=== PATIENT | male | born 2000 | race African-American/Black ===

== ENCOUNTER 2024-08-01 21:01 | Emergency (ER) | payer OTHER, SELFPAY ==
--- NOTE | ~2024-08-01 | XR_ITS ---
EXAMINATION: XR CHEST CLINICAL INFORMATION: Chest pain COMPARISON: None available. TECHNIQUE: 2 views of the chest were obtained. FINDINGS: The lungs are clear with no focal consolidation. No evidence of pneumothorax, pulmonary edema, or pleural effusions. The cardiomediastinal silhouette is unremarkable. No acute osseous findings. XR/XR chest 2V IMPRESSION: No acute cardiopulmonary findings. Electronically signed by: Sourav Bales MD 08/02/2024 04:40 AM EDT
--- NOTE | ~2024-08-01 | CT_ITS ---
EXAMINATION: CT ABDOMEN AND PELVIS WITH CONTRAST CLINICAL INFORMATION: Generalized abdominal pain and tenderness COMPARISON: None available. TECHNIQUE: Multidetector volumetric images were obtained from the superior aspect of the liver through the pubic symphysis following administration 60 mL of Omnipaque 350 intravenous contrast. Sagittal and coronal reformatted images were obtained on the technologist's workstation. Oral contrast: No This CT examination was performed using dose optimization techniques as appropriate, variously including the following: *Automated exposure control *Adjustment of mA and/or kV according to patient size (this includes techniques or standardized protocols for targeted exams where dose is matched to indication/reason for exam; i.e. extremities or head) *Use of iterative reconstruction technique DLP: 790 mGy-cm FINDINGS: LUNG BASES: The visualized lung bases are unremarkable. LIVER, GALLBLADDER, AND BILIARY TREE: The liver is normal in size, shape, and attenuation. No focal hepatic lesion or biliary ductal dilatation is present. The gallbladder is unremarkable with no evidence of radiopaque gallstones, gallbladder wall thickening, or obvious pericholecystic inflammatory changes. PANCREAS: Unremarkable. SPLEEN: Unremarkable. ADRENAL GLANDS: Unremarkable. KIDNEYS AND URETERS: Bilateral nephrograms are symmetric. No hydronephrosis or obstructing calculus identified. BLADDER: Unremarkable. GASTROINTESTINAL TRACT: No convincing evidence for bowel obstruction. Suboptimal assessment for wall thickening in some segments of the colon due to luminal collapse. The appendix is unremarkable. No free fluid or free air is seen. ABDOMINAL WALL: No significant hernia is appreciated. LYMPH NODES: Several nonspecific bilateral external iliac and inguinal lymph nodes approaching the upper limits of normal in size. VASCULAR: Unremarkable. PELVIC VISCERA: Unremarkable. OSSEOUS STRUCTURES: Unremarkable. CT/CT abdomen pelvis w IV con IMPRESSION: No definite acute findings identified in the abdomen/pelvis. Of note, there is limited assessment for wall thickening in some segments of the colon due to luminal collapse. Electronically signed by: Sourav Bales MD 08/02/2024 06:20 AM EDT
[2024-08-01 21:10] VITALS: BP 150/80; BP 150/84; PULSE 89; PULSE 90; RESP 14; TEMP 37.1; O2SAT 100; O2SAT 98; BMI 32.6
[2024-08-01 22:00] VITALS: BP 143/81; PULSE 85; RESP 13; TEMP 36.8; O2SAT 97
--- NOTE | 2024-08-01 22:13 | MHC.EDTECH ---
This tech answered pt call naila pt asked for urinal, refused to put socks in- my toes will lock out and I will be screaming of pain .
[2024-08-01 22:22] LABS: Alanine Aminotransferase 36 U/L (0-40); Alkaline Phosphatase 139 U/L (39-117); Anion Gap 14 (12-20); Aspartate Amino Transferase 32 U/L (5-37); Bilirubin Total 0.3 mg/dL (0.0-1.0); Blood Urea Nitrogen 5 mg/dL (9-16); Calcium 9.7 mg/dL (8.4-10.2); Carbon Dioxide 25 mmol/L (22-29); Chloride 99 mmol/L (96-108); Creatinine Clr Calc Pharmacy 153.3; Estimated Glomerular Filt Rate > 60; Glucose Random 104 mg/dL (60-115); Potassium 3.2 mmol/L (3.3-5.1); Sodium 135 mmol/L (135-145); Total Protein 7.9 g/dL (6.5-8.0)
[2024-08-01 22:25] LABS: Baso%MD 0.3 %; Eos%MD 0.3 %; Hematocrit 36.4 % (42.0-52.0); Hemoglobin 12.7 g/dl (14.0-18.0); IG%MD 0.6 %; Lymph%MD 14.8 %; Mean Corpuscular HGB Conc 34.9 g/dl (31.0-36.0); Mean Corpuscular Hemoglobin 31.1 pg (27.0-33.0); Mean Corpuscular Volume 89.2 fL (80.0-98.0); Mean Platelet Volume 10.1 fL (9.4-12.4); Mono%MD 7.8 %; Neut%MD 76.2 %; Platelet Count 369 X10*3/uL (160-400); Red Blood Count 4.08 X10*6/uL (4.60-5.80); White Blood Count 11.5 X10*3/uL (4.8-10.8)
[2024-08-01 22:27] LABS: B Type Natriuretic Peptide < 10 pg/mL (<100)
[2024-08-01 22:46] LABS: Influenza A PCR NEGATIVE (Negative); Influenza B PCR NEGATIVE (Negative); Resp Syncy Virus RNA Qual PCR NEGATIVE (Negative); SARS COV2 PCR INHOUSE NEGATIVE (Negative)
[2024-08-01 23:13] LABS: Band Neutrophils Percent 5 % (3-5); Lymphocytes Absolute Manual 1.8 X10*3/uL (1.2-4.9); Lymphocytes Percent Manual 16 % (20-40); Monocytes Absolute Manual 0.9 X10*3/uL (0.1-1.2); Monocytes Percent Manual 8 % (2-11); Neutrophils Absolute Manual 8.7 X10*3/uL (2.0-8.3); Neutrophils Percent Manual 71 % (45-73); RBC Morphology NORMAL
[2024-08-01 23:14] LABS: Platelet Estimate NORMAL (NORMAL); Platelet Morphology Comment NORM
[2024-08-02 00:16] VITALS: BP 156/88; PULSE 84; RESP 22; TEMP 36.7; O2SAT 97
--- NOTE | 2024-08-02 01:30 | PC.NURSE ---
resting quietly on stretcher, with eyes closed, resp with ease, no s/s of acute distress, waiting on ED provider
--- NOTE | 2024-08-02 03:02 | ED_ITS ---
HPI - General Adult General Chief complaint: Extremity Injury, Lower Stated complaint: MALAISE,FEVER,PEDAL EDEMA X 1DAY Time Seen by Provider: 08/02/24 03:01 History of Present Illness ED Provider: Rayna LANDAVERDE narrative: The patient is a 23-year-old male who says that he has been drinking very heavily for the last several weeks to months. He also has been homeless for the last 2 months. Says he is originally from [place]. He has been feeling unwell for over a week. He has had a sense of general malaise, cough, he has had swelling in his lower legs and he has cramping in his flanks, mostly on the right side. He says that he has a history of kidney stones. He has itchy lesions on both legs. He believes he got into poison trisha. He says he feels exhausted and depressed although he is not frankly suicidal. Related Data Allergies Allergy/AdvReac Type Severity Reaction Status Date / Time naproxen [From Naprosyn] Allergy Mild Vomiting Verified 08/01/24 21:16 Review of Systems 2 Review of Systems: Yes all other systems are reviewed and are negative [facility] Social History Social History Smoked in Last 30 Days: Yes Use of substances other than those prescribed or required for medical reasons: Yes Substance Use Type: Marijuana Advance Directives: No Advance Directives Information Provided: No Do you have a plan to hurt others: No Plan Physical Exam ED Vital Signs: Vital Signs - 24 hr 08/01/24 21:10 08/01/24 22:00 08/02/24 00:16 Temperature 98.7 F 98.3 F 98.1 F Pulse Rate 89 85 84 Respiratory Rate 14 13 22 H Blood Pressure 150/84 H 143/81 H 156/88 H Pulse Oximetry 100 97 97 Oxygen Delivery Method Room Air Room Air Room Air 08/02/24 04:35 08/02/24 06:30 Temperature 98.0 F 98.4 F Pulse Rate 66 90 Respiratory Rate 16 16 Blood Pressure 133/73 138/80 Pulse Oximetry 98 95 Oxygen Delivery Method Room Air Room Air BMI result Body Mass Index 32.6 Const Other: The patient has a large 23-year-old who was awake and alert although he looks exhausted and worn out. HENMT Other: The face is symmetrical. Mucous membranes are moist. Eyes Other: Pupils are round equal, conjunctivae are clear, extraocular movements intact Neck Other: Moving his neck easily Resp Effort & Inspection: normal respiratory effort Auscultation: clear to auscultation bilaterally Cardio Rate: regular rate Rhythm: regular rhythm Heart sounds: S1 normal heart sound present and S2 normal heart sound present GI Other: The patient has some mild generalized abdominal tenderness without focal rebound or guarding. General: Yes no CVA tenderness Back/Spine/Pelvis Back: no CVA tenderness Skin Other: The patient has several skin lesions on the lower legs that I think are consistent with poison trisha. Neuro Other: The patient is awake and alert. He seemed exhausted. No cranial nerve deficit. He seemed able to move his extremities symmetrically and appropriately Extrem Other: The patient has patches of erythema with vesicles on his lower legs which seem consistent with poison trisha. He may have some mild edema to the lower legs and feet. Medications Administered Generic Name Dose Route Start Last Admin Trade Name Freq PRN Reason Stop Dose Admin Phenobarbital Sodium 234 mg 08/02/24 07:15 08/02/24 07:14 Phenobarbital Sodium 130 Mg/Ml Vial Im Q3hx2 IM 08/02/24 10:16 234 mg Q3H ABDULAZIZ Administration Discontinued Medications Generic Name Dose Route Start Last Admin Trade Name Freq PRN Reason Stop Dose Admin Iohexol 100 ml 08/02/24 05:36 08/02/24 05:37 Iohexol 350 Mg/Ml 100 Ml Infus..Btl IV 08/02/24 05:37 100 ml ONCE ONE Administration Phenobarbital Sodium 312 mg 08/02/24 04:15 08/02/24 04:18 Phenobarbital Sodium 130 Mg/Ml Im Once IM 08/02/24 04:16 312 mg ONCE ONE Administration Medical Decision Making Medical Decision Making [facility] Narrative: The patient is a 23-year-old male who describes himself as an alcoholic and who says he has been homeless for the last 2 months. He is originally from [place]. I believe he has been in the [place] area recently because he has been seen at [facility]. He was brought to the emergency room here today by a [place] fire department ambulance. On exam the patient seems to have erythematous and vesicular lesions on the lower legs that I think is probably consistent with poison trisha. He says the lesions are very itchy. He has multiple somatic complaints including cough and cramps. His workup shows a white count of 11.5 with a hemoglobin of 12.7 out of platelet count of 369. Differential shows 71% neutrophils, 5% bands, 16% lymphocytes and 8% monocytes. A CT of the abdomen and pelvis shows no acute findings. Chest x-ray showed no acute findings. The patient's ETOH level today is less than 10. Based on the patient's description of the amount of alcohol he consumes I would have some concern about the patient developing alcohol withdrawal. His alcohol level currently less than 10. His urinalysis is positive for marijuana and barbiturates. The patient was given phenobarbital. I have placed a consult to the care team and to the addiction Medicine Service. I do not see an indication for definite medical hospitalization at this time although this could change if he develops significantly worsening withdrawal symptoms.. Lab Data 08/01/24 22:00 08/01/24 22:00 Labs: Lab Results 08/01/24 08/02/24 Range/Units 22:00 04:25 WBC 11.5 H (4.8-10.8) X10*3/uL RBC 4.08 L (4.60-5.80) X10*6/uL Hgb 12.7 L (14.0-18.0) g/dl Hct 36.4 L (42.0-52.0) % MCV 89.2 (80.0-98.0) fL MCH 31.1 (27.0-33.0) pg MCHC 34.9 (31.0-36.0) g/dl RDW 14.0 (11.0-16.0) % Plt Count 369 (160-400) X10*3/uL MPV 10.1 (9.4-12.4) fL Absolute Nucleated RBC 0.000 (0.0-0.012) X10*3/uL Nucleated RBC % (auto) 0.0 (0.0-0.2) /100WBC Neutrophils % (Manual) 71 (45-73) % Band Neutrophils % 5 (3-5) % Lymphocytes % (Manual) 16 L (20-40) % Monocytes % (Manual) 8 (2-11) % Abs Neuts (Manual) 8.7 H (2.0-8.3) X10*3/uL Lymphocytes # (Manual) 1.8 (1.2-4.9) X10*3/uL Monocytes # (Manual) 0.9 (0.1-1.2) X10*3/uL Platelet Estimate NORMAL (NORMAL) Plt Morphology Comment NORM RBC Morphology NORMAL Sodium 135 (135-145) mmol/L Potassium 3.2 L (3.3-5.1) mmol/L Chloride 99 (96-108) mmol/L Carbon Dioxide 25 (22-29) mmol/L Anion Gap 14 (12-20) BUN 5 L (9-16) mg/dL Creatinine 0.94 (0.5-1.4) mg/dL Estim Creat Clear Calc 153.3 Estimated GFR > 60 Random Glucose 104 (60-115) mg/dL Calcium 9.7 (8.4-10.2) mg/dL Magnesium 2.0 (1.6-2.6) mg/dL Total Bilirubin 0.3 (0.0-1.0) mg/dL AST 32 (5-37) U/L ALT 36 (0-40) U/L Alkaline Phosphatase 139 H (39-117) U/L C-Reactive Protein 13.13 H (< or = 0.50) mg/dL B-Natriuretic Peptide < 10 (<100) pg/mL Total Protein 7.9 (6.5-8.0) g/dL Albumin 4.0 (3.5-5.0) g/dL Lipase 23 (8-78) U/L Urine Color Yellow Urine Appearance Clear Urine pH 6.5 (5.0-9.0) Ur Specific [place] <= 1.005 (1.005-1.025) Urine Protein Negative (Neg-Trace) mg/dL Urine Glucose (UA) Negative (Negative) mg/dL Urine Ketones Negative (Negative) mg/dL Urine Blood Negative (Negative) Urine Nitrite Negative (Negative) Ur Leukocyte Esterase Negative (Negative) Urine Opiates Screen Not Detected (Not Detect) Ur Buprenorphine Scrn Not Detected (Not Detect) ng/mL Ur Oxycodone Screen Not Detected (Not Detect) ng/mL Urine Methadone Screen Not Detected (Not Detect) ng/mL Urine Fentanyl Screen Not Detected (Not Detect) Ur Barbiturates Screen POSITIVE H (Not Detect) Ur Phencyclidine Scrn Not Detected (Not Detect) Ur Amphetamines Screen Not Detected (Not Detect) U Benzodiazepines Scrn Not Detected (Not Detect) Urine Cocaine Screen Not Detected (Not Detect) U Marijuana (THC) Screen POSITIVE H (Not Detect) Ethyl Alcohol < 10 mg/dL Influenza Type A (PCR) NEGATIVE (Negative) Influenza Type B (PCR) NEGATIVE (Negative) RSV RNA Qual (PCR) NEGATIVE (Negative) SARS-CoV-2 RNA (RT-PCR) NEGATIVE (Negative) Discharge Plan Discharge Clinical Impression: Alcoholism, 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
--- NOTE | 2024-08-02 03:13 | ECG_ITS ---
Test Reason : WEAKNESS Blood Pressure : / mmHG Vent. Rate : 054 BPM Atrial Rate : 054 BPM P-R Int : 166 ms QRS Dur : 102 ms QT Int : 418 ms P-R-T Axes : 045 060 035 degrees QTc Int : 396 ms Sinus bradycardia with marked sinus arrhythmia Otherwise normal ECG No previous ECGs available Referred By: Ed Way Electronically Signed By:JORGE FAIRCHILD
[2024-08-02 03:34] LABS: C Reactive Protein 13.13 mg/dL (< or = 0.50); Ethanol < 10 mg/dL; Lipase 23 U/L (8-78)
[2024-08-02] MEDS: PHENobarbitaL sodium 130 MG/ML IM ONCE 312 MG IM (04:18)
[2024-08-02 04:31] LABS: Appearance Urine Clear; Color Urine Yellow; Glucose Urine UA Negative (Negative); Leukocyte Esterase Urine Negative (Negative); Nitrite Urine Negative (Negative); PH 6.5 (5.0-9.0); Specific Gravity - Urine <= 1.005 (1.005-1.025); Urine Blood Negative (Negative); Urine Ketones Negative (Negative); Urine Protein Negative (Neg-Trace)
[2024-08-02 04:35] VITALS: BP 133/73; PULSE 66; RESP 16; TEMP 36.7; O2SAT 98
[2024-08-02 04:42] LABS: Amphetamine Screen Urine Not Detected (Not Detect); Barbiturates, Urine POSITIVE (Not Detect); Benzodiazepines Screen Urine Not Detected (Not Detect); Buprenorphine Scr Not Detected (Not Detect); Cannabinoid Screen Urine POSITIVE (Not Detect); Cocaine Screen Urine Not Detected (Not Detect); Fentanyl, urine Not Detected (Not Detect); Methadone Screen, Urine Not Detected (Not Detect); Opiate Screen Urine Not Detected (Not Detect); Oxycodone Screen Urine Not Detected (Not Detect); Phencyclidine Screen Urine Not Detected (Not Detect)
[2024-08-02] MEDS: iohexoL 350 MG/ML 100 ML INFUS..BTL IV (05:37)
[2024-08-02 06:30] VITALS: BP 138/80; PULSE 90; RESP 16; TEMP 36.9; O2SAT 95
--- NOTE | 2024-08-02 07:03 | PC.NURSE ---
report given to Latha CARLIN
[2024-08-02] MEDS: PHENobarbitaL sodium 130 MG/ML VIAL IM Q3Hx2 234 MG IM (07:14)
[2024-08-02 10:02] VITALS: BP 139/65; PULSE 72; RESP 16; TEMP 36.8; O2SAT 100
--- NOTE | 2024-08-02 10:05 | PC.NURSE ---
pt seen by addiction medicine, Sheryl and Ronda, RNs at this time. pt verbalizing he is not interested in detox at this time and only wants his medical needs addressed. at this point, patient is medically cleared and does not require hospitalization at this time. updated CIWA = 4. Dr. Pantoja notified/aware. per provider order, dose of phenobarbitol will not be admitted at this time. plan of care ongoing.
--- NOTE | 2024-08-02 10:08 | MHC.CARE ---
Patient seen by CARE team, he is denying SI/ HI and agreeable to be seeing by recovery team, who are aware of consult request. At this time, he does not appear to meet medical necessity for inpatient psychiatry, denies hx of suicide attempts and appears to be focused primarily on medical concerns.
[2024-08-02 10:10] VITALS: BP 139/65; PULSE 72; RESP 16; TEMP 36.8; O2SAT 100
--- NOTE | 2024-08-02 10:51 | MHC.RECOVRN ---
Met with pt in ED9, along with RAEGAN Bond, after consult placed for alcohol use. Pt sitting in bed, awake, alert, engages in conversation. Pt reports alcohol use, 1 liter vodka daily since age 16. Pt reports occasional periods of recovery while in treatment. Has been to [place] [facility]) as well as admissions. Pt very focused on medical complaints, including swelling of lower legs. Pt reports he is not interested in ATS at this time. Pt provided with written resources, including information on inpatient and outpatient treatment, SUSU, harm reduction, recovery coaching, AA. Pt also provided with t/w contact information if question or concerns arise. Denies questions to concerns at this time. Discussed with provider as well as RN.
== END 2024-08-02 11:03 | disposition home or self-care (01) ==
PROVIDERS: Emergency Medicine; Emergency Provider Emergency Medicine Emergency Medical Services; PCP Internal Medicine
DX: F10.20 Alcohol dependence, uncomplicated (principal); Y90.0 Blood alcohol level of less than 20 mg/100 ml; L23.7 Allergic contact dermatitis due to plants, except food; R60.0 Localized edema; R05.9 Cough, unspecified; F32.A Depression, unspecified; F41.9 Anxiety disorder, unspecified; Z59.00 Homelessness unspecified; Z03.818 Encounter for observation for suspected exposure to other biological agents ruled out
CPT/HCPCS: 0241U; 71046; 74177; 80053; 80307; 81003; 83690; 83735; 83880; 85007; 85027; 86140; 93005; 96372; 99285; J2560; Q9967; S9485

== ENCOUNTER 2024-10-20 06:32 | Inpatient (IN) | payer OTHER, SELFPAY ==
[2024-10-20] VITALS (10 sets, daily range): BP systolic 135–166; BP diastolic 74–103; PULSE 73–111; RESP 14–23; TEMP 36.6–36.7; O2SAT 90–99; BMI 31.3
--- NOTE | 2024-10-20 | ECG_ITS ---
Test Reason : ASTHMA Blood Pressure : / mmHG Vent. Rate : 097 BPM Atrial Rate : 097 BPM P-R Int : 170 ms QRS Dur : 096 ms QT Int : 338 ms P-R-T Axes : 052 038 016 degrees QTc Int : 429 ms Normal sinus rhythm Normal ECG When compared with ECG of 02-AUG-2024 03:21, Vent. rate has increased BY 43 BPM T wave amplitude has decreased in Lateral leads Referred By: Generic ED Physician Electronically Signed By:NYDIA GALLARDO MD
--- NOTE | ~2024-10-20 | XR_ITS ---
EXAMINATION: XR CHEST CLINICAL INFORMATION: wheezing sob COMPARISON: Chest x-ray August 02, 2024 TECHNIQUE: Frontal view of the chest was obtained. FINDINGS: Cardiac silhouette is mildly prominent, likely accentuated due to low lung volumes. There is no lobar consolidation. No pleural effusion or pneumothorax. No gross osseous abnormality. XR/XR chest 1V IMPRESSION: Low lung volumes without acute pulmonary pathology. Electronically signed by: Brian Zheng MD 10/20/2024 08:32 AM [facility]
[2024-10-20 06:51] LABS: Venous Blood Gas Refer to POC result
[2024-10-20] MEDS: Albuterol/Iprat 2.5/0.5MG 3 ML AMPUL.NEB INHALE ×3 (06:51→20:26)
[2024-10-20 06:52] LABS: MANUAL DIFF FLAG NO
[2024-10-20 06:56] LABS: Basophils Percent Auto 0.3 % (0-2); Eosinophils Percent Auto 0.1 % (0-4); Hematocrit 37.8 % (42.0-52.0); Hemoglobin 12.3 g/dl (14.0-18.0); Imm Gran Abs Auto 0.02 X10*3/uL (0.00-0.03); Imm Gran Pct Auto 0.3 % (0.0-0.4); Lymphocytes Percent Auto 26.9 % (20-40); Mean Corpuscular HGB Conc 32.5 g/dl (31.0-36.0); Mean Corpuscular Hemoglobin 30.5 pg (27.0-33.0); Mean Corpuscular Volume 93.8 fL (80.0-98.0); Mean Platelet Volume 9.8 fL (9.4-12.4); Monocytes Absolute Auto 0.4 X10*3/uL (0.1-1.2); Monocytes Percent Auto 4.7 % (2-11); Neutrophils Absolute Auto 5.1 x10*3/uL (2.0-8.3); Neutrophils Percent Auto 67.7 % (45-73); Platelet Count 406 X10*3/uL (160-400); Red Blood Count 4.03 X10*6/uL (4.60-5.80); Red Cell Distribution Width 15.3 % (11.0-16.0); White Blood Count 7.6 X10*3/uL (4.8-10.8)
[2024-10-20 07:03] LABS: VBG Base Excess 8.5 mmol/L; VBG HCO3 35 mmol/L (22-26); VBG pCO2 61 mmHg; VBG pH 7.37 (7.32-7.43); VBG pO2 45 mmHg
[2024-10-20 07:19] LABS: Troponin-I High Sensitivity 6.2 ng/L (<3.5-35.0)
--- NOTE | 2024-10-20 07:28 | ED.ASTHMA ---
HPI - Asthma General Chief Complaint: Asthma Stated Complaint: DIFFICULTY BREATHING Time Seen by Provider: 10/20/24 07:28 Source: patient and EMS Mode of arrival: EMS Limitations: no limitations History of Present Illness ED Provider: DR. Paredes HPI Narrative: this is a 24-year-old male with history of tobacco smoking and bronchial asthma [place] for evaluation of shortness of breath chest tightness with wheezing. Patient stated that he he has been wheezing for the past 2 weeks despite using regular medication for asthma, never history of intubation or hospitalization for the asthma, patient was hanging out last night at a night club last night walked to police [place] when they found wheezing, hypoxic, with apparent difficulty breathing sent him to our ED by ambulance. On arrival patient was hypoxic, with significant difficulty breathing and wheezing. Related Data Previous Rx's ?Medication ?Instructions ?Recorded furosemide 40 mg tablet (Lasix) 40 mg PO DAILY #14 tabs 08/02/24 prednisone 20 mg tablet 60 mg (3 x 20 mg) PO DAILY 10 days 08/02/24 #30 tabs Allergies Allergy/AdvReac Type Severity Reaction Status Date / Time naproxen [From Naprosyn] Allergy Mild Vomiting Verified 10/20/24 06:41 Review of Systems Review of Systems: All other systems are reviewed and are negative Constitutional: Reports as per HPI and Reports no additional constitutional complaints Eyes: Reports as per HPI and Reports no additional eye complaints Reports system reviewed and no additional complaints, except as documented Cardiovascular: Reports as per HPI and Reports no additional cardiovascular complaints Respiratory: Reports as per HPI and Reports no additional respiratory complaints Gastrointestinal: Reports as per HPI and Reports no additional gastrointestinal complaints Genitourinary: Reports no additional female genitourinary complaints Musculoskeletal: Reports no additional musculoskeletal complaints Skin/Breast: Reports system reviewed and no additional complaints, except as docu Psychiatric: Reports no additional psychiatric complaints Endocrine: Reports no additional endocrine complaints Hematologic/Lymphatic: Reports no additional hematologic/lymphatic complaints Allergic/Immunologic: Reports no additional allergic/immunologic complaints Reports system reviewed and no additional complaints, except as documented and Reports Abnormal speech present [facility] Social History Social History Substance Use Type: Marijuana Advance Directives: No Advance Directives Information Provided: No Do you have a plan to hurt others: No Plan Physical Exam Vital Signs: Vital Signs: Last Vital Signs Temp 98.0 F 10/20/24 08:40 Pulse 89 10/20/24 10:24 Resp 23 H 10/20/24 10:24 BP 144/103 H 10/20/24 08:40 Pulse Ox 97 10/20/24 10:24 O2 Del Method Room Air 10/20/24 10:24 BMI result Body Mass Index 31.3 Vital signs have been reviewed and appear to be correct. Blood pressure elevated. Heart rate normal. Respiratory rate normal. Temperature normal. Oxygen saturation normal. Appearance: Alert. Oriented X3. No acute distress. Head: Normal external exam. Normocephalic. Atraumatic. No Salomon signs noted. No raccoon eyes noted Eyes: PERRLA. EOMI. Conjunctiva and sclera normal. Eyelids normal. ENT: TM's Normal. Pharynx normal. Uvula midline. Moist mucous membranes. No trismus noted. No drooling noted. No muffled voice noted. Neck: Normal inspection. Neck supple. FROM. No adenopathy. Thyroid Normal. No meningeal signs. No neck mass noted. CVS: Normal heart rate and rhythm. Heart sound normal. No murmurs noted. Pulses normal throughout. Respiratory: No respiratory distress. Painless inspiration. Diminished breathing sounds bilaterally, prolonged expiratory phase with diffuse expiratory wheezing. No accessory muscle usage noted or decreased air movement noted. Abdomen: Soft and nontender. Bowel sounds normal in all 4 quadrants. No distention noted. No organomegaly noted. No visible injury noted. Back: No CVA tenderness. Full range of motion noted. Skin: Skin warm and dry. Normal skin color. Normal skin turgor. No rashes/lesions/lacerations noted. Extremities: No lower extremity edema. Extremities exhibit normal range of motion. Extremities nontender. Neuro: Oriented X 3. Cranial nerve exam: II-XII are grossly intact No motor deficit. No sensory deficit. Reflexes normal. Course Reevaluation(s) Reevaluation #1: acute asthma exacerbation 24-year-old male with history of asthma, patient is still wheezing with minimal intercostal retraction and working to breathe. Will admit the patient for further management and bronchodilator. Time: 12:22 Medications Administered Discontinued Medications Generic Name Dose Route Start Last Admin Trade Name Freq PRN Reason Stop Dose Admin Albuterol/Ipratropium 3 ml 10/20/24 06:41 10/20/24 06:51 Albuterol/Iprat 2.5/0.5mg 3 Ml Ampul.Neb INHALE 10/20/24 06:42 3 ml ONCE ONE Administration Azithromycin 500 mg 10/20/24 07:37 10/20/24 07:55 Azithromycin 500 Mg Tablet PO 10/20/24 07:38 500 mg ONCE ONE Administration Methylprednisolone Sodium Succinate 125 mg 10/20/24 07:37 10/20/24 07:56 Methylprednisolone Sod Succ 125 Mg/2 Ml Vial IVPUSH 10/20/24 07:38 125 mg ONCE ONE Administration Medical Decision Making Differential Diagnosis Differential Diagnoses: The differential diagnosis associated with the presentation includes ( Asthma exacerbation, alcohol intoxication, pneumonia, pneumothorax, pleural effusion, viral infection.) Admission/Observation Consideration of admission/observation: Escalation of care including admission/observation considered Consult Healthcare Provider Management of the patient was discussed with: Hospitalist ( Dr. Lacy) Lab Data MDM Lab Attestation statement: I reviewed the patient's lab results. 10/20/24 06:48 10/20/24 08:11 Labs: Lab Results 10/20/24 10/20/24 10/20/24 Range/Units 06:48 06:53 08:11 WBC 7.6 (4.8-10.8) X10*3/uL RBC 4.03 L (4.60-5.80) X10*6/uL Hgb 12.3 L (14.0-18.0) g/dl Hct 37.8 L (42.0-52.0) % MCV 93.8 (80.0-98.0) fL MCH 30.5 (27.0-33.0) pg MCHC 32.5 (31.0-36.0) g/dl RDW 15.3 (11.0-16.0) % Plt Count 406 H (160-400) X10*3/uL MPV 9.8 (9.4-12.4) fL Immature Gran % (Auto) 0.3 (0.0-0.4) % Neut % (Auto) 67.7 (45-73) % Lymph % (Auto) 26.9 (20-40) % [place] % (Auto) 4.7 (2-11) % Eos % (Auto) 0.1 (0-4) % Baso % (Auto) 0.3 (0-2) % Lymph # (Auto) 2.0 (1.2-4.9) X10*3/uL [place] # (Auto) 0.4 (0.1-1.2) X10*3/uL Eos # (Auto) 0.0 (0.0-0.4) X10*3/uL Baso # (Auto) 0.0 (0.0-0.2) X10*3/uL Abs Immat Gran (auto) 0.02 (0.00-0.03) X10*3/uL Absolute Neuts (auto) 5.1 (2.0-8.3) x10*3/uL Absolute Nucleated RBC 0.000 (0.0-0.012) X10*3/uL Nucleated RBC % (auto) 0.0 (0.0-0.2) /100WBC VBG pH 7.37 (7.32-7.43) VBG pCO2 61 mmHg VBG pO2 45 mmHg VBG HCO3 35 H (22-26) mmol/L VBG O2 Saturation 67.0 % VBG Base Excess 8.5 mmol/L Sodium 145 (135-145) mmol/L Potassium 3.7 (3.3-5.1) mmol/L Chloride 105 (96-108) mmol/L Carbon Dioxide 26 (22-29) mmol/L Anion Gap 18 (12-20) BUN 9 (9-16) mg/dL Creatinine 0.86 (0.5-1.4) mg/dL Estim Creat Clear Calc 153.3 Estimated GFR > 60 Random Glucose 114 (60-115) mg/dL Calcium 9.1 D (8.4-10.2) mg/dL Total Bilirubin 0.1 (0.0-1.0) mg/dL AST 26 (5-37) U/L ALT 21 (0-40) U/L Alkaline Phosphatase 97 (39-117) U/L Troponin I High Sens 6.2 (<3.5-35.0) ng/L Total Protein 7.2 (6.5-8.0) g/dL Albumin 3.8 (3.5-5.0) g/dL Lipase 17 (8-78) U/L Influenza Type A (PCR) NEGATIVE (Negative) Influenza Type B (PCR) NEGATIVE (Negative) RSV RNA Qual (PCR) NEGATIVE (Negative) SARS-CoV-2 RNA (RT-PCR) NEGATIVE (Negative) Independent Interpretation I performed an independent interpretation of an: Plain X-Ray ( chest:Low lung volumes without acute pulmonary pathology. ) Discharge Plan Discharge Clinical Impression: Asthma with acute exacerbation Patient Disposition: Admitted As Inpatient Prescriptions: No Action furosemide [Lasix] 40 mg tablet 40 mg PO DAILY Qty: 14 0RF prednisone 20 mg tablet 60 mg PO DAILY 10 Days Qty: 30 0RF Print Language: Spanish
[2024-10-20] MEDS: Azithromycin 500 MG TABLET PO (07:55)
[2024-10-20] MEDS: methylPREDNISolone Sod Succ 125 MG/2 ML VIAL IVPUSH (07:56)
[2024-10-20 08:37] LABS: Alanine Aminotransferase 21 U/L (0-40); Albumin Level 3.8 g/dL (3.5-5.0); Alkaline Phosphatase 97 U/L (39-117); Anion Gap 18 (12-20); Aspartate Amino Transferase 26 U/L (5-37); Bilirubin Total 0.1 mg/dL (0.0-1.0); Blood Urea Nitrogen 9 mg/dL (9-16); Calcium 9.1 mg/dL (8.4-10.2); Carbon Dioxide 26 mmol/L (22-29); Chloride 105 mmol/L (96-108); Creatinine Clr Calc Pharmacy 153.3; Estimated Glomerular Filt Rate > 60; Glucose Random 114 mg/dL (60-115); Lipase 17 U/L (8-78); Potassium 3.7 mmol/L (3.3-5.1); Sodium 145 mmol/L (135-145); Total Protein 7.2 g/dL (6.5-8.0)
[2024-10-20 10:31] LABS: Influenza A PCR NEGATIVE (Negative); Influenza B PCR NEGATIVE (Negative); Resp Syncy Virus RNA Qual PCR NEGATIVE (Negative); SARS COV2 PCR INHOUSE NEGATIVE (Negative)
--- NOTE | 2024-10-20 12:57 | PM.IMHP ---
History of Present Illness Date of Service: 10/20/24 Chief Complaint: shortness of breath 24 year old man with hx of asthma, HTN, depression, anxiety, ETOH, tobacco use Presents to the ED with at least 2 weeks of wheezing and sob. He reported that he has been using his inhalors with no effect. He was discharged from [facility] on 10/05/24 and treated for asthma exacerbation. He was at a night club last night and ended up walking to the police station and was sent to ED via EMS. He reported not feeling any better and came to the ED for treatment. He reported wheezing and sob. He denied fever, chills, nausea, vomiting, recent travel, sick contacts. In the ED, Labs WNL, CXR with no consolidation or effusion. He was treated with Albuterol, solumedrol and azithromycin.He will be admitted for management of acute asthma exacerabtion Review of Systems Review of Systems: Denies any recent fever chills or decrease in appetite respiratory See HPI cardiovascular Denied chest pain gastrointestinal denies any dysphagia abdominal pain nausea vomiting or diarrhea genitourinary denies any dysuria frequency or hematuria musculoskeletal denies any joint pain or swelling neuropsych denies any weakness or seizures all other systems reviewed are negative [facility] Medical History (Updated 10/20/24 @ 13:29 by Gila Archer NP) Peripheral neuropathy Bipolar 1 disorder Hypertension Family History (Updated 10/20/24 @ 13:02 by Gila Archer NP) Mother Hypertension Father Hypertension Social History (Updated 10/20/24 @ 13:02 by Gila Archer NP) Household Members: Family Alcohol intake: current Alcohol intake frequency: a few times a month Comment: daily 2 nips to a pint Tobacco use type: Cigarette Cigarettes Per Day: 7 Substance Use Type: Marijuana Meds Allergies Allergy/AdvReac Type Severity Reaction Status Date / Time naproxen [From Naprosyn] Allergy Mild Vomiting Verified 10/20/24 06:41 Active Medications: Current Medications Acetaminophen (Acetaminophen 325 Mg Tablet) 650 mg PO Q6H PRN PRN Reason: Pain, Mild (Pain Scale 1-3), fever or headache Albuterol/Ipratropium (Albuterol/Iprat 2.5/0.5mg 3 Ml Ampul.Neb) 3 ml INHALE RQ4H WHILE AWAKE ABDULAZIZ Calcium Carbonate (Calcium Carbonate 750 Mg Tab.Chew) 750 mg PO Q4H PRN PRN Reason: Heartburn Magnesium Hydroxide (Milk Of Magnesia 30 Ml Oral.Susp) 30 ml PO DAILY PRN PRN Reason: Constipation Melatonin (Melatonin 3 Mg Tablet) 6 mg PO BEDTIME PRN PRN Reason: Insomnia Ondansetron HCl (Ondansetron Hcl 4 Mg/2 Ml Vial) 4 mg IVPUSH Q8H PRN PRN Reason: Nausea and Vomiting Prednisone (Prednisone 20 Mg Tablet) 40 mg PO DAILY ABDULAZIZ Sodium Chloride (0.9 % Sodium Chloride Flush 3 Ml Syringe) 3 ml IVFLUSH QSHIFT ABDULAZIZ Home Medications ?Medication ?Instructions ?Recorded ?Confirmed ?Last Taken ?Type albuterol sulfate 2.5 mg/3 mL 2.5 mg inhalation Q6H PRN wheezing 10/20/24 Unknown History (0.083 %) solution for nebulization albuterol sulfate 90 mcg/actuation 2 puff inhalation Q4H PRN 10/20/24 Unknown History aerosol inhaler (Ventolin HFA) Shortness Of Breath Or Wheezing buspirone 5 mg tablet 5 mg PO BID 10/20/24 Unknown History fluticasone furoate 200 1 ea inhalation DAILY 10/20/24 Unknown History mcg-vilanterol 25 mcg/dose inhalation powder (Breo Ellipta) hydroxyzine HCl 50 mg tablet 50 mg PO Q6H PRN itch 10/20/24 Unknown History nicotine 14 mg/24 hr daily 1 patch topical DAILY 10/20/24 Unknown History transdermal patch olanzapine 5 mg tablet 5 mg PO BEDTIME 10/20/24 Unknown History prednisone 50 mg tablet 50 mg PO DAILY 10/20/24 Unknown History sucralfate 1 gram tablet 1 g PO BID PRN Pain 10/20/24 Unknown History Physical Exam Vital Signs and Narrative: Vital Signs: Last Vital Signs Temp 98.0 F 10/20/24 08:40 Pulse 89 10/20/24 10:24 Resp 23 H 10/20/24 10:24 BP 144/103 H 10/20/24 08:40 Pulse Ox 97 10/20/24 10:24 O2 Del Method Room Air 10/20/24 10:24 BMI result Body Mass Index 31.3 Appearing in no acute distress head is normocephalic atraumatic eyes pupils are PERRLA sclera is anicteric mouth throat mucous membranes are intact and moist neck is supple no lymphadenopathy, no JVD noted lung sounds exp wheezing heart regular rate rhythm, clear S1, S2 positive bowel sounds, abdomen is soft, nontender neuro patient is alert x3, no focal deficits Results Labs 10/20/24 06:48 10/20/24 08:11 Labs: Laboratory Results - last 24 hr 10/20/24 10/20/24 10/20/24 06:48 06:53 08:11 MCV 93.8 MCH 30.5 MCHC 32.5 RDW 15.3 Plt Count 406 H MPV 9.8 Immature Gran % (Auto) 0.3 Neut % (Auto) 67.7 Lymph % (Auto) 26.9 [place] % (Auto) 4.7 Eos % (Auto) 0.1 Baso % (Auto) 0.3 Lymph # (Auto) 2.0 [place] # (Auto) 0.4 Eos # (Auto) 0.0 Baso # (Auto) 0.0 Abs Immat Gran (auto) 0.02 Absolute Neuts (auto) 5.1 Absolute Nucleated RBC 0.000 Nucleated RBC % (auto) 0.0 VBG pH 7.37 VBG pCO2 61 VBG pO2 45 VBG HCO3 35 H VBG O2 Saturation 67.0 VBG Base Excess 8.5 Anion Gap 18 Estim Creat Clear Calc 153.3 Estimated GFR > 60 Random Glucose 114 Calcium 9.1 D Total Bilirubin 0.1 AST 26 ALT 21 Alkaline Phosphatase 97 Troponin I High Sens 6.2 Total Protein 7.2 Albumin 3.8 Lipase 17 Influenza Type A (PCR) NEGATIVE Influenza Type B (PCR) NEGATIVE RSV RNA Qual (PCR) NEGATIVE SARS-CoV-2 RNA (RT-PCR) NEGATIVE Imaging Radiologist's Impressions: Impressions Chest X-Ray 10/20/24 07:55 IMPRESSION: Low lung volumes without acute pulmonary pathology. Electronically signed by: Brian Zheng MD 10/20/2024 08:32 [place] [facility] [place] and Plan (1) Asthma with acute exacerbation: Status: Acute Plan 24 year old man admitted with asthma exacerbation Asthma exacerbation acute, no hypoxia noted wheezing Prednisone and scheduled duonebs supplemental oxygen to keep o2 sats >90% Hypertension patient reports being out of medication for one week restart Lasix monitor BP Alcohol abuse reports drinking daily from a few nips to a pint no signs of withdrawal now follow CIWA Peripheral neuropathy pain to bilateral LE Start Gabapentin 100mg BID Toradol prn for pain smoker discussed smoking cessation NRT Bipolar disorder continue home medications Psych consult for anxiety DVT prophylaxis with early ambulation Full code Quality Stroke Does the patient have a stroke diagnosis?: No VTE Prior VTE?: No VTE Risk Level:: Medical - low VTE Device Contraindication: Treatment Not Indicated VTE Drug Contraindication: Treatment Not Indicated
--- NOTE | 2024-10-20 13:20 | PC.NURSE ---
patient placed on 2l NC due to waking up feeling sob, patient sat 96%. wheezing bilat, RT called for breathing treatment.
[2024-10-20] MEDS: Acetaminophen 325 MG TABLET 650 MG PO (13:39)
--- NOTE | 2024-10-20 13:59 | PC.NURSE ---
patient requested medication for 10/10 leg cramping, patient sitting on edge of bed talking on cell phone, patient medicated per JAN with prn tylenol which was the only pain med available at this time. patient inpatient provider made aware of patient pain
[2024-10-20] MEDS: Ketorolac Tromethamine 15 MG/ML VIAL IVPUSH ×2 (14:07→20:53)
[2024-10-20] MEDS: Gabapentin 100 MG CAPSULE PO ×2 (14:07→20:53)
--- NOTE | 2024-10-20 14:11 | PC.NURSE ---
patient medicated per JAN, patient given sandwich for lunch
--- NOTE | 2024-10-20 14:42 | PHA.MEDREC ---
Addendum entered by Marta Hewitt RPh 10/20/24 15:01: Med rec reviewed. Original Note: Pharmacy Consult ? Medication Reconciliation Pharmacy has completed the medication reconciliation. Spoke with patient to confirm. he is no longer using nicotine patches at home, he is currently smoking. He uses breo, protonix and sucralfate all prn. He last took his medications yesterday morning, nothing last night.
[2024-10-20] MEDS: 0.9 % Sodium Chloride Flush 3 ML SYRINGE IVFLUSH ×2 (18:20→23:46)
[2024-10-20] MEDS: busPIRone HCl 5 MG TABLET PO (20:53)
[2024-10-20] MEDS: OLANZapine 5 MG TABLET PO (20:53)
[2024-10-21] VITALS: BP 151/86; PULSE 57; RESP 20; TEMP 36.3; O2SAT 98
[2024-10-21 04:00] VITALS: BP 120/60; PULSE 53; RESP 18; TEMP 36.4; O2SAT 98
[2024-10-21 06:52] LABS: MANUAL DIFF FLAG NO
[2024-10-21 07:03] LABS: Basophils Percent Auto 0.1 % (0-2); Hematocrit 33.5 % (42.0-52.0); Hemoglobin 11.3 g/dl (14.0-18.0); Imm Gran Abs Auto 0.05 X10*3/uL (0.00-0.03); Imm Gran Pct Auto 0.5 % (0.0-0.4); Lymphocytes Absolute Auto 1.2 X10*3/uL (1.2-4.9); Lymphocytes Percent Auto 11.7 % (20-40); Mean Corpuscular HGB Conc 33.7 g/dl (31.0-36.0); Mean Corpuscular Hemoglobin 31.3 pg (27.0-33.0); Mean Corpuscular Volume 92.8 fL (80.0-98.0); Mean Platelet Volume 10.3 fL (9.4-12.4); Monocytes Absolute Auto 0.8 X10*3/uL (0.1-1.2); Monocytes Percent Auto 7.7 % (2-11); Platelet Count 376 X10*3/uL (160-400); Red Blood Count 3.61 X10*6/uL (4.60-5.80); Red Cell Distribution Width 15.4 % (11.0-16.0)
[2024-10-21 07:06] VITALS: BP 137/61; PULSE 56; RESP 20; TEMP 36.5; O2SAT 98
[2024-10-21 07:10] LABS: Anion Gap 13 (12-20); Blood Urea Nitrogen 14 mg/dL (9-16); Calcium 9.8 mg/dL (8.4-10.2); Carbon Dioxide 25 mmol/L (22-29); Chloride 103 mmol/L (96-108); Creatinine Clr Calc Pharmacy 149.9; Estimated Glomerular Filt Rate > 60; Glucose Random 102 mg/dL (60-115); Potassium 3.8 mmol/L (3.3-5.1); Sodium 137 mmol/L (135-145)
[2024-10-21] MEDS: Gabapentin 100 MG CAPSULE PO (08:22)
[2024-10-21] MEDS: predniSONE 20 MG TABLET 40 MG PO (08:22)
[2024-10-21] MEDS: busPIRone HCl 5 MG TABLET PO (08:22)
[2024-10-21] MEDS: Ketorolac Tromethamine 15 MG/ML VIAL IVPUSH ×2 (08:36→14:43)
[2024-10-21] MEDS: 0.9 % Sodium Chloride Flush 3 ML SYRINGE IVFLUSH ×2 (08:37→14:44)
[2024-10-21] MEDS: Albuterol/Iprat 2.5/0.5MG 3 ML AMPUL.NEB INHALE ×2 (09:11→15:17)
[2024-10-21 09:12] VITALS: PULSE 86; RESP 18; O2SAT 94
--- NOTE | 2024-10-21 10:39 | HO.ADDICTCON ---
History of Present Illness Date of Service: 10/21/24 Chief Complaint: asthma exacerbation Reason for Consult: AUD Sources of Information: patient interviewed and chart reviewed HPI Narrative: Patient is a 24 year old male medically admitted with asthma exacerbation. Consult requested to address possible link btwn alcohol intake and triggers for asthma Patient seen in room 362. He was awake, alert, pleasant and engaged in interview. Audibly wheezing--denies any SOB , and states he had just completed a nebulizer treatment Positive AUDIT-C screening and Brief Intervention below This script writer met with patient to discuss current alcohol use and concerns related to increased risk of alcohol related problems.? Pt reports several nips to bottles of alcohol daily. He reports drinking both liquor and beer. Amounts vary Discussed how alcohol use has impacted health, and how it relates to current admission (asthma exacerbation). Initially patient resistant to discussion as he saw no correlation between alcohol and asthma, however after some discussion and education around possible sensitivities to ingredients in alcohol (similar to sensitivities in food) patient more engaged. He reports that he often drinks at home because he has frequent leg cramps and he doesn't like being around anyone when I am like that . Withdrawal History: reports tremors frequently Did not apper to be experiencing any withdrawal sx at time of interview. Denies any anxiety, tremor, nausea, etc. Treatment History: numerous ATS admissions Supports:limited Discussed risk reduction strategies including not mixing alcohol so that he can work to determine which type of alcohol may be triggering asthma His goal is not abstinence, but to be able to drink with his friends. Provided pt with written resources --and reviewed harm reduction strategies for alcohol use. Discussed importance of vitamins, in particular thiamine and folate as these are often depleted with frequent alcohol use He declines referrals, but grateful for information provided. Review of Systems Constitutional: Reports as per HPI Diagnostics Vital Signs (24Hr): Vital Signs - 24 hr 10/20/24 13:24 10/20/24 13:39 10/20/24 16:00 Temperature Pulse Rate 90 102 H 86 Respiratory Rate 14 18 20 Blood Pressure 145/79 H 166/74 H Pulse Oximetry 99 93 Oxygen Delivery Method Nasal Cannula Room Air Oxygen Flow Rate 2 10/20/24 20:00 10/20/24 20:26 10/21/24 00:00 Temperature 98.1 F 97.4 F Pulse Rate 73 86 57 Respiratory Rate 18 18 20 Blood Pressure 136/79 151/86 H Pulse Oximetry 92 98 Oxygen Delivery Method Room Air Room Air Oxygen Flow Rate 10/21/24 04:00 10/21/24 07:06 10/21/24 09:12 Temperature 97.5 F 97.7 F Pulse Rate 53 56 86 Respiratory Rate 18 20 18 Blood Pressure 120/60 137/61 Pulse Oximetry 98 98 Oxygen Delivery Method Room Air Room Air Oxygen Flow Rate BMI result Body Mass Index 31.3 Labs 10/21/24 05:28 10/21/24 05:28 Labs: Laboratory Results - last 48 hr 10/20/24 10/20/24 10/20/24 06:48 06:53 08:11 WBC 7.6 RBC 4.03 L Hgb 12.3 L Hct 37.8 L MCV 93.8 MCH 30.5 MCHC 32.5 RDW 15.3 Plt Count 406 H MPV 9.8 Immature Gran % (Auto) 0.3 Neut % (Auto) 67.7 Lymph % (Auto) 26.9 [place] % (Auto) 4.7 Eos % (Auto) 0.1 Baso % (Auto) 0.3 Lymph # (Auto) 2.0 [place] # (Auto) 0.4 Eos # (Auto) 0.0 Baso # (Auto) 0.0 Abs Immat Gran (auto) 0.02 Absolute Neuts (auto) 5.1 Absolute Nucleated RBC 0.000 Nucleated RBC % (auto) 0.0 VBG pH 7.37 VBG pCO2 61 VBG pO2 45 VBG HCO3 35 H VBG O2 Saturation 67.0 VBG Base Excess 8.5 Sodium 145 Potassium 3.7 Chloride 105 Carbon Dioxide 26 Anion Gap 18 BUN 9 Creatinine 0.86 Estim Creat Clear Calc 153.3 Estimated GFR > 60 Random Glucose 114 Calcium 9.1 D Magnesium Total Bilirubin 0.1 AST 26 ALT 21 Alkaline Phosphatase 97 Troponin I High Sens 6.2 Total Protein 7.2 Albumin 3.8 Lipase 17 Influenza Type A (PCR) NEGATIVE Influenza Type B (PCR) NEGATIVE RSV RNA Qual (PCR) NEGATIVE SARS-CoV-2 RNA (RT-PCR) NEGATIVE 10/21/24 05:28 WBC 10.0 RBC 3.61 L Hgb 11.3 L Hct 33.5 L MCV 92.8 MCH 31.3 MCHC 33.7 RDW 15.4 Plt Count 376 MPV 10.3 Immature Gran % (Auto) 0.5 H Neut % (Auto) 80.0 H Lymph % (Auto) 11.7 L [place] % (Auto) 7.7 Eos % (Auto) 0.0 Baso % (Auto) 0.1 Lymph # (Auto) 1.2 [place] # (Auto) 0.8 Eos # (Auto) 0.0 Baso # (Auto) 0.0 Abs Immat Gran (auto) 0.05 H Absolute Neuts (auto) 8.0 Absolute Nucleated RBC 0.000 Nucleated RBC % (auto) 0.0 VBG pH VBG pCO2 VBG pO2 VBG HCO3 VBG O2 Saturation VBG Base Excess Sodium 137 Potassium 3.8 Chloride 103 Carbon Dioxide 25 Anion Gap 13 BUN 14 Creatinine 0.88 Estim Creat Clear Calc 149.9 Estimated GFR > 60 Random Glucose 102 Calcium 9.8 D Magnesium 2.0 Total Bilirubin AST ALT Alkaline Phosphatase Troponin I High Sens Total Protein Albumin Lipase Influenza Type A (PCR) Influenza Type B (PCR) RSV RNA Qual (PCR) SARS-CoV-2 RNA (RT-PCR) Imaging Radiology Impressions: ITS Impressions Chest X-Ray 10/20/24 07:55 IMPRESSION: Low lung volumes without acute pulmonary pathology. Electronically signed by: Brian Zheng MD 10/20/2024 08:32 AM [facility] [place] Mental Status Exam Mental Status Exam Patient Appearance: Appropriate Patient Orientation: Person, Place, Time and Situation Level of Consciousness: Awake, Appropriate and Alert Patient Behavior: Appropriate and Cooperative Mood Description: Calm Affect Description: Calm Speech Pattern: Clear Medications Medications Current Medications Acetaminophen (Acetaminophen 325 Mg Tablet) 650 mg PO Q6H PRN PRN Reason: Pain, Mild (Pain Scale 1-3), fever or headache Last Admin: 10/20/24 13:39 Dose: 650 mg Albuterol/Ipratropium (Albuterol/Iprat 2.5/0.5mg 3 Ml Ampul.Neb) 3 ml INHALE RQ4H WHILE AWAKE ABDULAZIZ Last Admin: 10/21/24 09:11 Dose: 3 ml Buspirone HCl (Buspirone Hcl 5 Mg Tablet) 5 mg PO BID ABDULAZIZ Last Admin: 10/21/24 08:22 Dose: 5 mg Calcium Carbonate (Calcium Carbonate 750 Mg Tab.Chew) 750 mg PO Q4H PRN PRN Reason: Heartburn Gabapentin (Gabapentin 100 Mg Capsule) 100 mg PO BID [facility] Last Admin: 10/21/24 08:22 Dose: 100 mg Hydroxyzine HCl (Hydroxyzine Hcl 50 Mg Tablet) 50 mg PO Q6H PRN PRN Reason: itch Ketorolac Tromethamine (Ketorolac Tromethamine 15 Mg/Ml Vial) 15 mg IVPUSH Q6H [facility] Last Admin: 10/21/24 08:36 Dose: 15 mg Magnesium Hydroxide (Milk Of Magnesia 30 Ml Oral.Susp) 30 ml PO DAILY PRN PRN Reason: Constipation Melatonin (Melatonin 3 Mg Tablet) 6 mg PO BEDTIME PRN PRN Reason: Insomnia Olanzapine (Olanzapine 5 Mg Tablet) 5 mg PO BEDTIME [facility] Last Admin: 10/20/24 20:53 Dose: 5 mg Ondansetron HCl (Ondansetron Hcl 4 Mg/2 Ml Vial) 4 mg IVPUSH Q8H PRN PRN Reason: Nausea and Vomiting Prednisone (Prednisone 20 Mg Tablet) 40 mg PO DAILY [facility] Last Admin: 10/21/24 08:22 Dose: 40 mg Sodium Chloride (0.9 % Sodium Chloride Flush 3 Ml Syringe) 3 ml IVFLUSH QSHIFT [facility] Last Admin: 10/21/24 08:37 Dose: 3 ml Allergies Allergies Allergy/AdvReac Type Severity Reaction Status Date / Time naproxen [From Naprosyn] Allergy Mild Vomiting Verified 10/20/24 06:41 Assessment & Plan Assessment & Plan (1) Alcohol use disorder, moderate, dependence: Status: Acute Code(s): F10.20 - Alcohol dependence, uncomplicated Assessment and Plan: resources provided --declines referrals or SUSU at this time discussion focused on addressing possible sensitivities to ingredients in alcohol and how this may contribute to his asthma contracts advisor to check in tomorrow AM if patient still admitted to review and questions Total time managing care of this patient today __35__ minutes. PMFSH Past Medical History Medical History (Updated 10/21/24 @ 11:00 by Mary Grace Hook CNP) Peripheral neuropathy Bipolar 1 disorder Hypertension Family History Family History (Updated 10/20/24 @ 13:02 by Gila Archer NP) Mother Hypertension Father Hypertension Social History Social History (Updated 10/20/24 @ 13:02 by Gila Archre NP) Household Members: Family Housing: Apartment Do you presently have visiting nurse or other home services: No Alcohol intake: current Alcohol intake frequency: a few times a month Comment: pt refused bed alarm Patient Tobacco Use Status: Current everyday Tobacco user Tobacco use type: Cigarette Cigarettes Per Day: 8 Years Smoked: 6 Smoked in Last 30 Days: Yes Patient Interested in Nicotine Replacement: No Patient Given Instructions on How to Stop Smoking: No (pt interested, but not today ) Second Hand Smoke Exposure: Yes Use of substances other than those prescribed or required for medical reasons: Yes Substance Use Type: Marijuana Substance Use Frequency: Socially Last Used Substance: Weeks (ago) Currently Displaying Signs/Symptoms of Drug Intoxication Withdrawal: No Any prior treatment program specific to substance use: Yes (several times) Have you been hit, kicked, punched, or otherwise hurt by someone within the past year? If so, by whom?: No Do you feel safe in your current relationship?: No Current Relationship Is there a partner from a previous relationship who is making you feel unsafe now?: No Are you made to feel afraid or neglected: No Advance Directives: No Advance Directives Information Provided: No Advance Directives on File: No Do you have a plan to hurt others: No Plan Recently lost weight without trying: No Eating poorly because of decreased appetite: No Nutrition Risks: No Nutritional Risk Poor oral hygiene: No
--- NOTE | 2024-10-21 10:52 | PC.NURSE ---
pt refused bed alarm, educated on pt safety and encouraged to use call yoo appropiately when getting oob
[2024-10-21 11:16] VITALS: BP 128/60; PULSE 58; RESP 20; TEMP 36.2; O2SAT 97
[2024-10-21] MEDS: methylPREDNISolone Sod Succ 40 MG/ML VIAL IVPUSH (12:01)
--- NOTE | 2024-10-21 12:15 | MHC.CM.PN ---
FIELD [facility]ULER AND CM MET WITH PT AT BEDSIDE. PT STATES HE LIVES AT HOME WITH FAMILY PT HAS [employer] FOR INSURANCE PT USES NEBULIZER AND INHALER AT HOME PT DOES NOT HAVE HCP PCP-DR.Narayana Juancho CARD DCP HOME NO SERVICES VIA LYFT
[2024-10-21] MEDS: Acetaminophen 325 MG TABLET 650 MG PO (13:01)
[2024-10-21 15:18] VITALS: BP 144/97; PULSE 65; RESP 18; TEMP 36.3; O2SAT 100
--- NOTE | 2024-10-21 16:04 | P.DS_ITS ---
DS: Providers Provider Date of Service: 10/21/24 Date of admission: 10/20/24 12:52 Date of discharge: 10/21/24 Primary care physician: Jamil Navarro MD Consults: 10/20/24 13:30 Consult to Psychiatry Routine Consulting Provider: Psych Covering Reason for consultation: anxiety 10/21/24 Addiction Medicine Routine Consulting Provider: Addiction Covering Reason for consultation: alcohol intake directly impacting asthma, pt needs education Has provider been notified: Yes Attending physician on discharge: [facility] Discharging clinician: Sangeeta Ren DS: Diagnosis Discharge Diagnosis (1) Alcohol use disorder, moderate, dependence: Status: Acute (2) Asthma with acute exacerbation: Status: Acute DS: Summary Hospital Course Hospital Course: From H&P on the day of admission 24 year old man with hx of asthma, HTN, depression, anxiety, ETOH, tobacco use Presents to the ED with at least 2 weeks of wheezing and sob. He reported that he has been using his inhalors with no effect. He was discharged from [facility] on 10/05/24 and treated for asthma exacerbation. He was at a night club last night and ended up walking to the police station and was sent to ED via EMS. He reported not feeling any better and came to the ED for treatment. He reported wheezing and sob. He denied fever, chills, nausea, vomiting, recent travel, sick contacts. In the ED, Labs WNL, CXR with no consolidation or effusion. He was treated with Albuterol, solumedrol and azithromycin.He will be admitted for management of acute asthma exacerabtion acute exacerbation of asthma unspecified Treated with breathing treatments and systemic steroids. No episodes of hypoxia. Patient elected to leave against medical advice, he was awake, alert, able to speak in full sentences. Prednisone will be sent to the pharmacy although it was discussed that it was recommended for him to stay in the [facility] for IV steroids and close monitoring of his respiratory status. He did not wish to remain in the hospital and left against medical advise. He reports having inhalers and nebulizer machine at home. Recommended follow up with PCP and return to ED with any worsening symptoms. etoh use disorder. did not appear to be withdrawing from alcohol during this admission. CIWA remained low, 2 at time of departure. left prior to addiction medicine consultation Time Attestation Discharge Coordination Time (in mins): 36 Quality: Safe Use of Opioids Does Pt have an Active Cancer Diagnosis on the Problem List?: No Quality: Stroke Does the patient have a stroke diagnosis?: No Physical Exam Vital Signs: Vital Signs: Last Vital Signs Temp 97.4 F 10/21/24 15:18 Pulse 65 10/21/24 15:18 Resp 18 10/21/24 15:18 BP 144/97 H 10/21/24 15:18 Pulse Ox 100 10/21/24 15:18 O2 Del Method Room Air 10/21/24 15:18 O2 Flow Rate 2 10/20/24 13:24 BMI result Body Mass Index 31.3 Const: General: alert and awake Nutritional Appearance: average body habitus Orientation/consciousness: patient oriented x3 Resp: Other: +wheeze Effort & Inspection: normal respiratory effort, able to speak in complete sentences, no respiratory distress and no use of accessory muscles Neuro: General: patient oriented x3 DS: Data Data Completed and Pending Labs on day of discharge: Laboratory Results - last 24 hr 10/21/24 05:28 WBC 10.0 RBC 3.61 L Hgb 11.3 L Hct 33.5 L MCV 92.8 MCH 31.3 MCHC 33.7 RDW 15.4 Plt Count 376 MPV 10.3 Immature Gran % (Auto) 0.5 H Neut % (Auto) 80.0 H Lymph % (Auto) 11.7 L [place] % (Auto) 7.7 Eos % (Auto) 0.0 Baso % (Auto) 0.1 Lymph # (Auto) 1.2 [place] # (Auto) 0.8 Eos # (Auto) 0.0 Baso # (Auto) 0.0 Abs Immat Gran (auto) 0.05 H Absolute Neuts (auto) 8.0 Absolute Nucleated RBC 0.000 Nucleated RBC % (auto) 0.0 Sodium 137 Potassium 3.8 Chloride 103 Carbon Dioxide 25 Anion Gap 13 BUN 14 Creatinine 0.88 Estim Creat Clear Calc 149.9 Estimated GFR > 60 Random Glucose 102 Calcium 9.8 D Magnesium 2.0 Discharge Plan Discharge Patient Disposition: Left Against Medical Advice Discharge Diagnosis: asthma exacerbation Referrals: Jamil Navarro MD [Primary Care Provider] - 1 Week Discharge Medications: New prednisone 20 mg tablet 40 mg PO DAILY 5 Days Qty: 10 0RF Continued buspirone 5 mg tablet 5 mg PO BID albuterol sulfate 2.5 mg /3 mL (0.083 %) solution for nebulization 2.5 mg inhalation Q6H PRN (Reason: wheezing) sucralfate 1 gram tablet 1 g PO BID PRN (Reason: Pain) olanzapine 5 mg tablet 5 mg PO BEDTIME hydroxyzine HCl 50 mg tablet 50 mg PO Q6H PRN (Reason: itch) albuterol sulfate [Ventolin HFA] 90 mcg/actuation HFA aerosol inhaler 2 puff INHALATION Q4H PRN (Reason: Shortness Of Breath Or Wheezing) fluticasone furoate-vilanterol [Breo Ellipta] 200-25 mcg/dose blister with device 1 ea inhalation DAILY PRN (Reason: Shortness Of Breath Or Wheezing) pantoprazole 40 mg tablet,delayed release (DR/EC) 40 mg PO DAILY PRN (Reason: Acid Reflux) Discharge Orders: Discharge Order (Routine); Ordered 10/21/24 Ordered By: Sangeeta Ren Print Language: Italian Care Plan Goals: see below Health Concerns: acute exacerbation of asthma Plan of Treatment: left AMA - although it was recommended to stay in the hospital for close respiratory monitoring and IV steroids, you have elected to leave the hospital against medical advice. will send prednisone to the pharmacy call to schedule follow-up appointment with your primary care provider Returned to the emergency department with any new or worsening symptoms Assessment: left AMA Discharge Date/Time: 10/21/24 15:56
== END 2024-10-21 15:56 | disposition left against medical advice (07) | DRG 141 ==
LOC: HO.ED 12:25 → HO.EDOVER 13:19 → HO.S3 13:50
PROVIDERS: Admitting Provider Nurse Practitioner Acute Care; Emergency Provider Emergency Medicine; PCP Internal Medicine; Visit Provider Physician Assistant Medical
DX: J45.901 Unspecified asthma with (acute) exacerbation (principal); F10.20 Alcohol dependence, uncomplicated; F17.210 Nicotine dependence, cigarettes, uncomplicated; I10 Essential (primary) hypertension; G62.9 Polyneuropathy, unspecified; F31.9 Bipolar disorder, unspecified; Z71.6 Tobacco abuse counseling; Z79.899 Other long term (current) drug therapy
CPT/HCPCS: 0241U; 36415; 71045; 80048; 80053; 82803; 83690; 83735; 84484; 85025; 93005; 94640; 99221; 99285; J1885; J2919

== ENCOUNTER → 2024-10-20 06:57 | Outpatient (BNV) | payer OTHER, SELFPAY | PROVIDERS: Emergency Provider Emergency Medicine; Visit Provider Internal Medicine Cardiovascular Disease | DX: R06.02 Shortness of breath (principal); R07.89 Other chest pain | CPT/HCPCS: 93010 ==

== ENCOUNTER → 2024-10-20 12:52 | Outpatient (BNV) | payer OTHER, SELFPAY | PROVIDERS: Admitting Provider Nurse Practitioner Acute Care; Emergency Provider Emergency Medicine; Visit Provider Nurse Practitioner Acute Care | DX: J45.901 Unspecified asthma with (acute) exacerbation (principal) | CPT/HCPCS: 99222 ==

== ENCOUNTER → 2024-10-20 12:52 | Outpatient (BNV) | payer OTHER, SELFPAY | PROVIDERS: Admitting Provider Nurse Practitioner Acute Care; Emergency Provider Emergency Medicine; Visit Provider Nurse Practitioner Psychiatric/Mental Health | DX: F10.20 Alcohol dependence, uncomplicated (principal) | CPT/HCPCS: 99232 ==

== ENCOUNTER 2024-12-05 00:46 | Emergency (ER) | payer OTHER, SELFPAY ==
[2024-12-05] VITALS (8 sets, daily range): BP systolic 109–143; BP diastolic 55–82; PULSE 72–86; RESP 16–24; TEMP 36.3–36.9; O2SAT 93–100; BMI 31.0
--- NOTE | ~2024-12-05 | XR_ITS ---
CLINICAL HISTORY: asthma 1 view chest x-ray Comparison: None Findings: The lungs are clear. The heart is mildly enlarged in size. No acute fracture. IMPRESSION: Mild cardiomegaly with no acute pulmonary process. This document has been electronically signed by: Gordo Barr on 12/05/2024 07:13:16
[2024-12-05 01:56] LABS: MANUAL DIFF FLAG NO
[2024-12-05 02:07] LABS: Basophils Percent Auto 0.4 % (0-2); Eosinophils Percent Auto 0.3 % (0-4); Hematocrit 38.9 % (42.0-52.0); Hemoglobin 12.8 g/dl (14.0-18.0); Imm Gran Abs Auto 0.02 X10*3/uL (0.00-0.03); Imm Gran Pct Auto 0.3 % (0.0-0.4); Lymphocytes Percent Auto 27.6 % (20-40); Mean Corpuscular HGB Conc 32.9 g/dl (31.0-36.0); Mean Corpuscular Hemoglobin 31.7 pg (27.0-33.0); Mean Corpuscular Volume 96.3 fL (80.0-98.0); Mean Platelet Volume 9.3 fL (9.4-12.4); Monocytes Absolute Auto 0.8 X10*3/uL (0.1-1.2); Monocytes Percent Auto 10.9 % (2-11); Neutrophils Absolute Auto 4.3 x10*3/uL (2.0-8.3); Neutrophils Percent Auto 60.5 % (45-73); Platelet Count 422 X10*3/uL (160-400); Red Blood Count 4.04 X10*6/uL (4.60-5.80); Red Cell Distribution Width 15.1 % (11.0-16.0); White Blood Count 7.1 X10*3/uL (4.8-10.8)
[2024-12-05 02:18] LABS: Alanine Aminotransferase 14 U/L (0-40); Albumin Level 4.3 g/dL (3.5-5.0); Anion Gap 16 (12-20); Aspartate Amino Transferase 25 U/L (5-37); Bilirubin Total 0.1 mg/dL (0.0-1.0); Blood Urea Nitrogen 9 mg/dL (9-16); Calcium 8.9 mg/dL (8.4-10.2); Carbon Dioxide 25 mmol/L (22-29); Chloride 110 mmol/L (96-108); Creatinine Clr Calc Pharmacy 151.7; Estimated Glomerular Filt Rate > 60; Ethanol 305 mg/dL; Glucose Random 81 mg/dL (60-115); Lipase 28 U/L (8-78); Potassium 3.9 mmol/L (3.3-5.1); Sodium 147 mmol/L (135-145); Total Protein 7.6 g/dL (6.5-8.0)
[2024-12-05 02:36] LABS: Alkaline Phosphatase 123 U/L (39-117)
--- NOTE | 2024-12-05 04:55 | PC.NURSE ---
pt placed on 2L O2 via NC as he drops down to ~86% room air when sleeping.
--- NOTE | 2024-12-05 07:13 | ED.ALCOHOL ---
HPI - Alcohol General Chief Complaint: ETOH/Substance Use Stated Complaint: ETOH drank 1 gallon of whiskey Time Seen by Provider: 12/05/24 06:36 Source: patient, EMS, RN notes reviewed and old records reviewed Mode of arrival: EMS History of Present Illness ED Provider: Destini Palacios PA-C HPI narrative: 24-year-old male with a past medical history bipolar, HTN, ETOH abuse, presenting to the ED via EMS after being found sleeping at [facility]. Patient admits to drinking 1 bottle of ETOH. States he is daily drinker, admits to history of ETOH withdrawal and withdrawal seizures. Denies hallucinations. Denies recent injury/fall, does report fall last week. Reports diffuse myalgias. Denies CP/SOB, abdominal pain. Denies other illicit substance use. Is interested in detox Related Data Home Medications ?Medication ?Instructions ?Recorded ?Confirmed albuterol sulfate 2.5 mg/3 mL 2.5 mg inhalation Q6H PRN wheezing 10/20/24 10/20/24 (0.083 %) solution for nebulization albuterol sulfate 90 mcg/actuation 2 puff inhalation Q4H PRN 10/20/24 10/20/24 aerosol inhaler (Ventolin HFA) Shortness Of Breath Or Wheezing buspirone 5 mg tablet 5 mg PO BID 10/20/24 10/20/24 fluticasone furoate 200 1 ea inhalation DAILY PRN 10/20/24 10/20/24 mcg-vilanterol 25 mcg/dose Shortness Of Breath Or Wheezing inhalation powder (Breo Ellipta) hydroxyzine HCl 50 mg tablet 50 mg PO Q6H PRN itch 10/20/24 10/20/24 olanzapine 5 mg tablet 5 mg PO BEDTIME 10/20/24 10/20/24 pantoprazole 40 mg tablet,delayed 40 mg PO DAILY PRN Acid Reflux 10/20/24 10/20/24 release sucralfate 1 gram tablet 1 g PO BID PRN Pain 10/20/24 10/20/24 Previous Rx's ?Medication ?Instructions ?Recorded prednisone 20 mg tablet 40 mg (2 x 20 mg) PO DAILY 5 days 10/21/24 #10 tabs Allergies Allergy/AdvReac Type Severity Reaction Status Date / Time naproxen [From Naprosyn] Allergy Mild Vomiting Verified 12/05/24 01:05 Review of Systems Review of Systems: Yes all other systems are reviewed and are negative Constitutional: Constitutional: Reports as per [facility] Past Medical History Attestation statement: The following information was validated with the patient. Source: old records reviewed Medical History Peripheral neuropathy Bipolar 1 disorder Hypertension Family History Family History Mother Hypertension Father Hypertension Social History Social History Household Members: Family Housing: Apartment Do you presently have visiting nurse or other home services: No Unable to assess alcohol history related to: Unknown Alcohol intake: current Alcohol intake frequency: a few times a month Comment: pt refused bed alarm Patient Tobacco Use Status: Current everyday Tobacco user Tobacco use type: Cigarette Cigarettes Per Day: 8 Years Smoked: 6 Second Hand Smoke Exposure: Yes Use of substances other than those prescribed or required for medical reasons: Unknown Substance Use Type: Marijuana Advance Directives: No Advance Directives Information Provided: Yes Do you have a plan to hurt others: No Plan service: No Physical Exam ED Vital Signs: Vital Signs - 24 hr 12/05/24 00:55 12/05/24 02:00 12/05/24 04:00 Temperature 97.6 F 97.4 F 97.6 F Pulse Rate 80 86 72 Respiratory Rate 16 24 H 16 Blood Pressure 143/82 H 117/63 131/70 Pulse Oximetry 93 93 96 Oxygen Delivery Method Room Air Room Air Room Air Oxygen Flow Rate 12/05/24 05:00 12/05/24 06:00 12/05/24 08:09 Temperature 98.4 F Pulse Rate 79 73 85 Respiratory Rate 18 16 20 Blood Pressure 109/65 118/55 L Pulse Oximetry 98 100 94 Oxygen Delivery Method Nasal Cannula Nasal Cannula Nasal Cannula Oxygen Flow Rate 2 2 2 12/05/24 08:49 Temperature Pulse Rate 75 Respiratory Rate 18 Blood Pressure 114/70 Pulse Oximetry 94 Oxygen Delivery Method Room Air Oxygen Flow Rate BMI result Body Mass Index 31.0 Const Other: + ETOH odor on breath, lethargic, responsive to physical/verbal stimuli General: no acute distress Orientation/consciousness: patient oriented x3 HENMT Head: Yes normal to inspection and Yes atraumatic Ears: hearing grossly normal bilaterally General nose exam: Normal external nose present Face and sinus: Yes normal facial exam Eyes General: appearance normal, both eyes and all related structures EOM: EOMs intact bilaterally Neck Neck: Yes normal visual inspection and Yes no meningeal signs Resp Effort & Inspection: normal respiratory effort and no respiratory distress Cardio Rate: regular rate GI Inspection: Yes normal to inspection Palpation (GI): Soft to palpation, nontender, no guarding and not rigid Skin Rashes: no rashes Wounds: no wounds Neuro General: patient oriented x3, tone normal, moves all extremities, no meningeal signs and CN's II-XI intact bilaterally Cranial nerves: Yes CN's II-XII intact bilaterally Extrem General: Yes normal to inspection Course Course Course Narrative: -716--labs reassuring. Ethanol 305 XR chest 1V IMPRESSION: Mild cardiomegaly with no acute pulmonary process. -physician observation initiated at 07:18 as patient needs more time to be evaluated by addiction medicine and for clinical sobriety -addiction medicine spoke with patient and were working on detox however patient refusing/stating he cannot walk or ambulate without walker. Discussed with patient how he has been ambulating in the world, and states he does not have a walker at home/is currently homeless. Does not usually ambulate with walker. States he is able to ambulate without walker when he drinks and drinks daily. Is still interested in detox, he is unwilling to even attempt to ambulate in the emergency department without walker. Discussed he can not get into detox unless he can ambulate independently > Will obtain PT eval -Physical therapy evaluated patient and he ambulated steadily without walker. -1330--patient now stating he would like to be discharged, is no longer interested in detox. Results discussed with patient including worrisome signs and symptoms and strict return precautions, and when to return to the emergency department. They verbalized understanding and feel safe for discharge at this time. Medical Decision Making Medical Decision Making [facility] Narrative: 24-year-old male with a past medical history bipolar, HTN, ETOH abuse, presenting to the ED via EMS after being found sleeping at [facility] the [facility]. On exam lethargic, arousable to physical and verbal stimuli, EtOH odor on breath, appears intoxicated, no evidence of trauma, following commands, history limited due to patient cooperation. Satting 100% on 2 L NC. Concern for ETOH intoxication vs viral illness. Lower suspicion for ICH/fractures. Rule out metabolic abnormalities. Low suspicion for severe sepsis Plan: Labs, tox screen, CXR, viral testing, addiction medicine consult No evidence of ETOH withdrawal at this time Please refer to course for remaining clinical decision making, interpretation of labs/imaging results, and discussions with consultants and/or family members. Differential Diagnosis Differential Diagnoses: The differential diagnosis associated with the presentation includes As above Admission/Observation Consideration of admission/observation: Escalation of care including admission/observation considered Consult Healthcare Provider Management of the patient was discussed with: Behavioral Health Provider (Addiction medicine) Lab Data MDM Lab Attestation statement: I reviewed the patient's lab results. 12/05/24 01:53 12/05/24 01:53 Labs: Lab Results 12/05/24 12/05/24 12/05/24 Range/Units 01:53 09:24 09:35 WBC 7.1 (4.8-10.8) X10*3/uL RBC 4.04 L (4.60-5.80) X10*6/uL Hgb 12.8 L (14.0-18.0) g/dl Hct 38.9 L (42.0-52.0) % MCV 96.3 (80.0-98.0) fL MCH 31.7 (27.0-33.0) pg MCHC 32.9 (31.0-36.0) g/dl RDW 15.1 (11.0-16.0) % Plt Count 422 H (160-400) X10*3/uL MPV 9.3 L (9.4-12.4) fL Immature Gran % (Auto) 0.3 (0.0-0.4) % Neut % (Auto) 60.5 (45-73) % Lymph % (Auto) 27.6 (20-40) % Edgar % (Auto) 10.9 (2-11) % Eos % (Auto) 0.3 (0-4) % Baso % (Auto) 0.4 (0-2) % Lymph # (Auto) 2.0 (1.2-4.9) X10*3/uL Edgar # (Auto) 0.8 (0.1-1.2) X10*3/uL Eos # (Auto) 0.0 (0.0-0.4) X10*3/uL Baso # (Auto) 0.0 (0.0-0.2) X10*3/uL Abs Immat Gran (auto) 0.02 (0.00-0.03) X10*3/uL Absolute Neuts (auto) 4.3 (2.0-8.3) x10*3/uL Absolute Nucleated RBC 0.000 (0.0-0.012) X10*3/uL Nucleated RBC % (auto) 0.0 (0.0-0.2) /100WBC Sodium 147 H (135-145) mmol/L Potassium 3.9 (3.3-5.1) mmol/L Chloride 110 H (96-108) mmol/L Carbon Dioxide 25 (22-29) mmol/L Anion Gap 16 (12-20) BUN 9 (9-16) mg/dL Creatinine 0.84 (0.5-1.4) mg/dL Estim Creat Clear Calc 151.7 Estimated GFR > 60 Random Glucose 81 (60-115) mg/dL Calcium 8.9 D (8.4-10.2) mg/dL Magnesium 2.1 (1.6-2.6) mg/dL Total Bilirubin 0.1 (0.0-1.0) mg/dL AST 25 (5-37) U/L ALT 14 (0-40) U/L Alkaline Phosphatase 123 H (39-117) U/L Total Creatine Kinase 239 H (38-174) U/L Total Protein 7.6 (6.5-8.0) g/dL Albumin 4.3 (3.5-5.0) g/dL Lipase 28 (8-78) U/L Urine Opiates Screen Not Detected (Not Detect) Ur Buprenorphine Scrn Not Detected (Not Detect) ng/mL Ur Oxycodone Screen Not Detected (Not Detect) ng/mL Urine Methadone Screen Not Detected (Not Detect) ng/mL Urine Fentanyl Screen Not Detected (Not Detect) Ur Barbiturates Screen Not Detected (Not Detect) Ur Phencyclidine Scrn Not Detected (Not Detect) Ur Amphetamines Screen Not Detected (Not Detect) U Benzodiazepines Scrn Not Detected (Not Detect) Urine Cocaine Screen Not Detected (Not Detect) U Marijuana (THC) Screen Not Detected (Not Detect) Ethyl Alcohol 305 H* mg/dL Influenza Type A (PCR) NEGATIVE (Negative) Influenza Type B (PCR) NEGATIVE (Negative) RSV RNA Qual (PCR) NEGATIVE (Negative) SARS-CoV-2 RNA (RT-PCR) NEGATIVE (Negative) Independent Interpretation I performed an independent interpretation of an: Plain X-Ray Radiology Impression Discussion of test interpretation with radiology: I have reviewed the radiologist's reading. Independent Historian Clinical information obtained from an independent historian. History obtained from or confirmed by: EMS External Record Review External record reviewed: Inpatient record, Office record, Outpatient record, Prior outpatient labs, Prior outpatient radiology, Primary care record and Outside ED record Tests considered The following testing was considered but not selected: As above Chronic Conditions Patient?s care impacted by: Other Social Determinants Patient?s care significantly limited by Social Determinants of Health including: Inadequate housing, Low income, Alcoholism and drug addiction in family and Other Social Determinant of Health Medications Administered Discontinued Medications Generic Name Dose Route Start Last Admin Trade Name Freq PRN Reason Stop Dose Admin Al Hydroxide/Mg Hydroxide 30 ml 12/05/24 09:35 12/05/24 09:38 Magnesium Hydrox/Alum Hydrox 30 Ml Oral.Susp PO 12/05/24 09:36 30 ml ONCE ONE Administration Lorazepam 1 mg 12/05/24 12:31 12/05/24 12:37 Lorazepam 1 Mg Tablet PO 12/05/24 12:32 1 mg ONCE ONE Administration Discharge Plan Discharge Clinical Impression: Alcoholic intoxication Patient Disposition: Still a Patient Prescriptions: No Action buspirone 5 mg tablet 5 mg PO BID albuterol sulfate 2.5 mg /3 mL (0.083 %) solution for nebulization 2.5 mg inhalation Q6H PRN (Reason: wheezing) sucralfate 1 gram tablet 1 g PO BID PRN (Reason: Pain) olanzapine 5 mg tablet 5 mg PO BEDTIME hydroxyzine HCl 50 mg tablet 50 mg PO Q6H PRN (Reason: itch) albuterol sulfate [Ventolin HFA] 90 mcg/actuation HFA aerosol inhaler 2 puff INHALATION Q4H PRN (Reason: Shortness Of Breath Or Wheezing) fluticasone furoate-vilanterol [Breo Ellipta] 200-25 mcg/dose blister with device 1 ea inhalation DAILY PRN (Reason: Shortness Of Breath Or Wheezing) pantoprazole 40 mg tablet,delayed release (DR/EC) 40 mg PO DAILY PRN (Reason: Acid Reflux) prednisone 20 mg tablet 40 mg PO DAILY 5 Days Qty: 10 0RF Print Language: Greenlandic
[2024-12-05 07:44] LABS: Magnesium 2.1 mg/dL (1.6-2.6)
--- NOTE | 2024-12-05 09:02 | PC.NURSE ---
Pt more awake, answering questions, mild agitation. +cough noted, reports it has been going on for a week. Pt changed over to best of RNs and techs ability. Denies any CP, N/V/D, headache, tremors, hallucinations. Denies SI or HI but reports if people treat me bad I will be . VSS
[2024-12-05] MEDS: Magnesium Hydrox/Alum Hydrox 30 ML ORAL.SUSP PO (09:38)
[2024-12-05 09:50] LABS: Amphetamine Screen Urine Not Detected (Not Detect); Barbiturates, Urine Not Detected (Not Detect); Benzodiazepines Screen Urine Not Detected (Not Detect); Buprenorphine Scr Not Detected (Not Detect); Cannabinoid Screen Urine Not Detected (Not Detect); Cocaine Screen Urine Not Detected (Not Detect); Fentanyl, urine Not Detected (Not Detect); Methadone Screen, Urine Not Detected (Not Detect); Opiate Screen Urine Not Detected (Not Detect); Oxycodone Screen Urine Not Detected (Not Detect); Phencyclidine Screen Urine Not Detected (Not Detect)
[2024-12-05 10:08] LABS: Influenza A PCR NEGATIVE (Negative); Influenza B PCR NEGATIVE (Negative); Resp Syncy Virus RNA Qual PCR NEGATIVE (Negative); SARS COV2 PCR INHOUSE NEGATIVE (Negative)
--- NOTE | 2024-12-05 10:49 | MHC.RECOVRN ---
[facility] does not have bed availability today.
--- NOTE | 2024-12-05 12:18 | MHC.RECOVRN ---
During phone screen with [facility] pt informed intake that he is unable to complete ADLs or ambulate without a walker so screen was concluded. Pt aware he is not a candidate for ATS if he is not independent. Discussed with ED provider, plan for PT eval.
[2024-12-05] MEDS: LORazepam 1 MG TABLET PO (12:37)
--- NOTE | 2024-12-05 12:50 | PC.NURSE ---
Tech attempted to do ambulation trial without walker per provider request, pt refused X2. Reports he cannot walk without it. Provider aware and PT order placed
--- NOTE | 2024-12-05 13:02 | PC.NURSE ---
Pt agitated and changed back over into his own clothes reporting he has been waiting too long and doesn't undertstand why it is taking so long. Pt explained multiple times that we are waiting for PT to eval him and they are behind. Pt agitated.
--- NOTE | 2024-12-05 13:25 | PC.NURSE ---
Pt requesting to leave, had PT eval. Provider notified.
== END 2024-12-05 13:44 | disposition home or self-care (01) ==
PROVIDERS: Physician Assistant; Emergency Provider Emergency Medicine
DX: F10.120 Alcohol abuse with intoxication, uncomplicated (principal); Y90.8 Blood alcohol level of 240 mg/100 ml or more; M79.10 Myalgia, unspecified site; Z03.818 Encounter for observation for suspected exposure to other biological agents ruled out; I10 Essential (primary) hypertension; J45.909 Unspecified asthma, uncomplicated; F17.210 Nicotine dependence, cigarettes, uncomplicated; Z79.899 Other long term (current) drug therapy
CPT/HCPCS: 0241U; 36415; 71045; 80053; 80307; 82550; 83690; 83735; 85025; 97161; 99284; S9485

== ENCOUNTER → 2024-12-05 05:43 | Outpatient (BNV) | payer OTHER, SELFPAY | PROVIDERS: Emergency Provider Emergency Medicine; Visit Provider Radiology Vascular & Interventional Radiology | DX: J45.909 Unspecified asthma, uncomplicated (principal) | CPT/HCPCS: 71045 ==

== ENCOUNTER 2024-12-08 15:06 | Inpatient (IN) | payer OTHER, SELFPAY ==
--- NOTE | ~2024-12-08 | CT_ITS ---
CLINICAL HISTORY: epigastric pain CT abdomen and pelvis with contrast Comparison: CT/SR - CT ABDOMEN PELVIS W IV CON - 08/02/24 05:29 EDT Findings: Small hiatal hernia. Visualized lungs are clear. Hepatic steatosis. Gallbladder, pancreas, spleen, and adrenal glands are within normal limits. No hydronephrosis. Symmetric contrast enhancement of the kidneys. No bowel obstruction, pneumatosis or pneumoperitoneum. Appendix is dilated with surrounding fat stranding. No perforation or abscess. Pelvic organs are within normal limits. The bones are intact. IMPRESSION: 1. Acute appendicitis without evidence of perforation or abscess. This document has been electronically signed by: Kasie Malloy MD on 12/08/2024 18:19:48
--- NOTE | ~2024-12-08 | XR_ITS ---
CLINICAL HISTORY: cough, r o penumonia Chest X-ray, 2 Views COMPARISON: CR - XR CHEST 1V - 12/05/24 05:43 EST FINDINGS: No consolidation. No pleural effusion. No pneumothorax. No cardiomegaly. No acute fracture. IMPRESSION: No acute findings. This document has been electronically signed by: Petey Alexander MD on 12/08/2024 21:38:59
[2024-12-08 15:19] VITALS: BP 148/86; PULSE 92; O2SAT 99
[2024-12-08 15:28] VITALS: BP 164/72; PULSE 79; RESP 16; O2SAT 96; BMI 31.6
--- NOTE | 2024-12-08 15:38 | ED.ABDPAIN ---
HPI - Abdominal Pain General Chief Complaint: Abdominal Pain Stated Complaint: ABD PAIN,MUSCLE SPASM,FALL LAST NOC,HIT HEAD,+CCOL Time Seen by Provider: 12/08/24 15:19 History of Present Illness HPI narrative: Patient is a 24-year-old male presents today with having abdominal pain. Mainly over the epigastric area. Positive history of ETOH abuse in the past. Drinks on a daily basis. The amount of alcohol consumption is about the same. Been having this abdominal pain for the last 3 days. Denies noticing any blood in the stool. Use of marijuana but no other recreational drugs. Positive mild coughing congestion upper respiratory symptoms. No bloody stool noted. Related Data Home Medications ?Medication ?Instructions ?Recorded ?Confirmed albuterol sulfate 2.5 mg/3 mL 2.5 mg inhalation Q6H PRN wheezing 10/20/24 10/20/24 (0.083 %) solution for nebulization albuterol sulfate 90 mcg/actuation 2 puff inhalation Q4H PRN 10/20/24 10/20/24 aerosol inhaler (Ventolin HFA) Shortness Of Breath Or Wheezing buspirone 5 mg tablet 5 mg PO BID 10/20/24 10/20/24 fluticasone furoate 200 1 ea inhalation DAILY PRN 10/20/24 10/20/24 mcg-vilanterol 25 mcg/dose Shortness Of Breath Or Wheezing inhalation powder (Breo Ellipta) hydroxyzine HCl 50 mg tablet 50 mg PO Q6H PRN itch 10/20/24 10/20/24 olanzapine 5 mg tablet 5 mg PO BEDTIME 10/20/24 10/20/24 pantoprazole 40 mg tablet,delayed 40 mg PO DAILY PRN Acid Reflux 10/20/24 10/20/24 release sucralfate 1 gram tablet 1 g PO BID PRN Pain 10/20/24 10/20/24 Previous Rx's ?Medication ?Instructions ?Recorded prednisone 20 mg tablet 40 mg (2 x 20 mg) PO DAILY 5 days 10/21/24 #10 tabs Allergies Allergy/AdvReac Type Severity Reaction Status Date / Time naproxen [From Naprosyn] Allergy Mild Vomiting Verified 12/08/24 15:33 Review of Systems Review of Systems Positive epigastric pain Yes all other systems are reviewed and are negative [facility] Past Medical History Medical History Peripheral neuropathy Bipolar 1 disorder Hypertension Family History Family History Mother Hypertension Father Hypertension Social History Social History Household Members: Family Housing: Apartment Do you presently have visiting nurse or other home services: No Unable to assess alcohol history related to: Unknown Alcohol intake: current Alcohol intake frequency: 3 or more drinks per day Alcohol type: hard liquor Comment: pt refused bed alarm Patient Tobacco Use Status: Current everyday Tobacco user Tobacco use type: Cigarette Cigarettes Per Day: 8 Years Smoked: 6 Smoked in Last 30 Days: Yes Second Hand Smoke Exposure: Yes Use of substances other than those prescribed or required for medical reasons: Yes Substance Use Type: Marijuana Advance Directives: No Advance Directives Information Provided: No service: No Physical Exam ED Vital Signs: Vital Signs - 24 hr 12/08/24 15:28 12/08/24 16:04 12/08/24 18:07 Temperature 98.7 F 98.2 F Pulse Rate 79 89 Respiratory Rate 16 18 16 Blood Pressure 164/72 H 151/84 H Pulse Oximetry 96 97 Oxygen Delivery Method Room Air Room Air BMI result Body Mass Index 31.6 Appearance: Alert. Oriented X3. No acute distress. Eyes: Pupils equal, round and reactive to light. ENT: Pharynx normal. Neck: Normal inspection. Neck supple. No lymph nodes noted. No crepitus CVS: Normal heart rate and rhythm. Pulses normal. Normal S1 and S2 Respiratory: No respiratory distress. Breath sounds normal. No Wheezing. No rales Abdomen: Soft and nontender. No rigidity. No distention. good BS x4 Skin: Skin warm and dry. Normal skin color. Normal skin turgor. Extremities: No lower extremity edema. Neurovascular intact to all extremities. No Lacerations. No Rash Neuro: Oriented X 3. No motor deficit. No sensory deficit. Moving all extermities. No slurred speech Medical Decision Making Medical Decision Making MDM Narrative: Presents today with having abdominal pain for the last 3 days some nausea. Has a history of alcohol use. Not in acute withdrawal. CT scan of the abdomen was done. Radiology reading of the CT scan is positive for appendicitis. The appendix was enlarged there is no perforation but there is surrounding inflammation consistent with appendicitis. Patient's white count is normal. There is no significant shift. Electrolytes unremarkable alcohol is nondetectable today will admit for further evaluation patient's COVID flu RSV were all negative. Case was consulted by the surgical team. Will admit for further evaluation Differential Diagnosis Differential Diagnoses: The differential diagnosis associated with the presentation includes Appendicitis, gastritis, biliary disease Admission/Observation Consideration of admission/observation: Escalation of care including admission/observation considered Consult Healthcare Provider Management of the patient was discussed with: Catering Director (Surgery, radiology's) Lab Data MDM Lab Attestation statement: I reviewed the patient's lab results. 12/08/24 15:54 12/08/24 16:43 Labs: Lab Results 12/08/24 12/08/24 Range/Units 15:54 16:43 WBC 6.6 (4.8-10.8) X10*3/uL RBC 3.70 L (4.60-5.80) X10*6/uL Hgb 11.7 L (14.0-18.0) g/dl Hct 34.9 L (42.0-52.0) % MCV 94.3 (80.0-98.0) fL MCH 31.6 (27.0-33.0) pg MCHC 33.5 (31.0-36.0) g/dl RDW 14.6 (11.0-16.0) % Plt Count 330 (160-400) X10*3/uL MPV 9.4 (9.4-12.4) fL Immature Gran % (Auto) 0.5 H (0.0-0.4) % Neut % (Auto) 69.6 (45-73) % Lymph % (Auto) 23.5 (20-40) % Early % (Auto) 6.1 (2-11) % Eos % (Auto) 0.0 (0-4) % Baso % (Auto) 0.3 (0-2) % Lymph # (Auto) 1.5 (1.2-4.9) X10*3/uL Early # (Auto) 0.4 (0.1-1.2) X10*3/uL Eos # (Auto) 0.0 (0.0-0.4) X10*3/uL Baso # (Auto) 0.0 (0.0-0.2) X10*3/uL Abs Immat Gran (auto) 0.03 (0.00-0.03) X10*3/uL Absolute Neuts (auto) 4.6 (2.0-8.3) x10*3/uL Absolute Nucleated RBC 0.000 (0.0-0.012) X10*3/uL Nucleated RBC % (auto) 0.0 (0.0-0.2) /100WBC Sodium 144 (135-145) mmol/L Potassium 3.7 (3.3-5.1) mmol/L Chloride 109 H (96-108) mmol/L Carbon Dioxide 26 (22-29) mmol/L Anion Gap 13 (12-20) BUN 9 (9-16) mg/dL Creatinine 0.82 (0.5-1.4) mg/dL Estim Creat Clear Calc 171.6 Estimated GFR > 60 Random Glucose 70 (60-115) mg/dL Calcium 8.7 (8.4-10.2) mg/dL Total Bilirubin 0.3 (0.0-1.0) mg/dL Direct Bilirubin 0.1 (0.0-0.5) mg/dL AST 23 (5-37) U/L ALT 12 (0-40) U/L Alkaline Phosphatase 109 (39-117) U/L Total Protein 6.7 (6.5-8.0) g/dL Albumin 3.9 (3.5-5.0) g/dL Lipase 21 (8-78) U/L Ethyl Alcohol < 10 mg/dL Influenza Type A (PCR) NEGATIVE (Negative) Influenza Type B (PCR) NEGATIVE (Negative) RSV RNA Qual (PCR) NEGATIVE (Negative) SARS-CoV-2 RNA (RT-PCR) NEGATIVE (Negative) Radiology Impression Discussion of test interpretation with radiology: I have reviewed the radiologist's reading. Radiologist Impression: Appendicitis Chronic Conditions History of alcohol abuse Medications Administered Generic Name Dose Route Start Last Admin Trade Name Freq PRN Reason Stop Dose Admin Metronidazole 500 mg in 100 mls @ 100 mls/hr 12/08/24 18:23 12/08/24 18:46 Flagyl IV 12/08/24 19:22 100 mls/hr ONCE ONE Administration Discontinued Medications Generic Name Dose Route Start Last Admin Trade Name Freq PRN Reason Stop Dose Admin Al Hydroxide/Mg Hydroxide 30 ml 12/08/24 15:36 12/08/24 15:55 Magnesium Hydrox/Alum Hydrox 30 Ml Oral.Susp PO 12/08/24 15:37 30 ml ONCE ONE Administration Ceftriaxone Sodium 1 gm 12/08/24 18:23 12/08/24 18:46 Ceftriaxone Sodium 1 Gm Vial IVPUSH 12/08/24 18:24 1 gm ONCE ONE Administration Sodium Chloride 1,000 mls @ 999 mls/hr 12/08/24 15:45 12/08/24 17:42 Ns IV 12/08/24 16:45 Infused .Q1H1M ABDULAZIZ Infusion Sodium Chloride 1,000 mls @ 999 mls/hr 12/08/24 15:45 12/08/24 17:42 Ns IV 12/08/24 16:45 Infused .Q1H1M ABDULAZIZ Infusion Iohexol 100 ml 12/08/24 17:55 12/08/24 17:55 Iohexol 350 Mg/Ml 100 Ml Infus..Btl IV 12/08/24 17:56 85 ml ONCE ONE Administration Lorazepam 1 mg 12/08/24 17:04 12/08/24 17:21 Lorazepam 1 Mg Tablet PO 12/08/24 17:05 1 mg ONCE ONE Administration Discharge Plan Discharge Clinical Impression: Acute appendicitis Patient Disposition: Admitted As Inpatient Prescriptions: No Action buspirone 5 mg tablet 5 mg PO BID albuterol sulfate 2.5 mg /3 mL (0.083 %) solution for nebulization 2.5 mg inhalation Q6H PRN (Reason: wheezing) sucralfate 1 gram tablet 1 g PO BID PRN (Reason: Pain) olanzapine 5 mg tablet 5 mg PO BEDTIME hydroxyzine HCl 50 mg tablet 50 mg PO Q6H PRN (Reason: itch) albuterol sulfate [Ventolin HFA] 90 mcg/actuation HFA aerosol inhaler 2 puff INHALATION Q4H PRN (Reason: Shortness Of Breath Or Wheezing) fluticasone furoate-vilanterol [Breo Ellipta] 200-25 mcg/dose blister with device 1 ea inhalation DAILY PRN (Reason: Shortness Of Breath Or Wheezing) pantoprazole 40 mg tablet,delayed release (DR/EC) 40 mg PO DAILY PRN (Reason: Acid Reflux) prednisone 20 mg tablet 40 mg PO DAILY 5 Days Qty: 10 0RF Print Language: Yi
[2024-12-08] MEDS: Magnesium Hydrox/Alum Hydrox 30 ML ORAL.SUSP PO (15:55)
[2024-12-08] MEDS: 0.9 % Sodium Chloride 1,000 ML 999 ML IV ×2 (15:55)
[2024-12-08 16:03] LABS: MANUAL DIFF FLAG NO
[2024-12-08 16:04] VITALS: RESP 18; TEMP 37.1
[2024-12-08 16:10] LABS: Basophils Percent Auto 0.3 % (0-2); Hematocrit 34.9 % (42.0-52.0); Hemoglobin 11.7 g/dl (14.0-18.0); Imm Gran Abs Auto 0.03 X10*3/uL (0.00-0.03); Imm Gran Pct Auto 0.5 % (0.0-0.4); Lymphocytes Absolute Auto 1.5 X10*3/uL (1.2-4.9); Lymphocytes Percent Auto 23.5 % (20-40); Mean Corpuscular HGB Conc 33.5 g/dl (31.0-36.0); Mean Corpuscular Hemoglobin 31.6 pg (27.0-33.0); Mean Corpuscular Volume 94.3 fL (80.0-98.0); Mean Platelet Volume 9.4 fL (9.4-12.4); Monocytes Absolute Auto 0.4 X10*3/uL (0.1-1.2); Monocytes Percent Auto 6.1 % (2-11); Neutrophils Absolute Auto 4.6 x10*3/uL (2.0-8.3); Neutrophils Percent Auto 69.6 % (45-73); Platelet Count 330 X10*3/uL (160-400); Red Cell Distribution Width 14.6 % (11.0-16.0); White Blood Count 6.6 X10*3/uL (4.8-10.8)
[2024-12-08 16:57] LABS: Influenza A PCR NEGATIVE (Negative); Influenza B PCR NEGATIVE (Negative); Resp Syncy Virus RNA Qual PCR NEGATIVE (Negative); SARS COV2 PCR INHOUSE NEGATIVE (Negative)
[2024-12-08 17:05] LABS: Alanine Aminotransferase 12 U/L (0-40); Albumin Level 3.9 g/dL (3.5-5.0); Alkaline Phosphatase 109 U/L (39-117); Anion Gap 13 (12-20); Aspartate Amino Transferase 23 U/L (5-37); Bilirubin Direct 0.1 mg/dL (0.0-0.5); Bilirubin Total 0.3 mg/dL (0.0-1.0); Blood Urea Nitrogen 9 mg/dL (9-16); Calcium 8.7 mg/dL (8.4-10.2); Carbon Dioxide 26 mmol/L (22-29); Chloride 109 mmol/L (96-108); Creatinine Clr Calc Pharmacy 171.6; Estimated Glomerular Filt Rate > 60; Ethanol < 10 mg/dL; Glucose Random 70 mg/dL (60-115); Lipase 21 U/L (8-78); Potassium 3.7 mmol/L (3.3-5.1); Sodium 144 mmol/L (135-145); Total Protein 6.7 g/dL (6.5-8.0)
[2024-12-08] MEDS: LORazepam 1 MG TABLET PO (17:21)
[2024-12-08] MEDS: iohexoL 350 MG/ML 100 ML INFUS..BTL IV (17:55)
[2024-12-08 18:07] VITALS: BP 151/84; PULSE 89; RESP 16; TEMP 36.8; O2SAT 97
[2024-12-08] MEDS: metroNIDAZOLE/NS 500 MG/100 ML PIGGYBACK 100 MG IV (18:46)
[2024-12-08] MEDS: cefTRIAXone sodium 1 GM VIAL IVPUSH (18:46)
--- NOTE | 2024-12-08 18:46 | PC.NURSE ---
No blood cultures need per MD, confirmed X3
--- NOTE | 2024-12-08 18:47 | PC.NURSE ---
Per pt, last food yesterday at 9pm. Did have some fluids here with PO pills around 530p, nothing else
[2024-12-08] MEDS: Piperacillin Sodium/Tazobactam 3.375 GM in 0.9 % Sodium Chloride 50 ML IV (19:51)
[2024-12-08] MEDS: Lactated Ringers 1,000 ML 100 ML IVCONT (19:52)
--- NOTE | 2024-12-08 20:06 | PM.HPGS ---
History of Present Illness History of Present Illness Date of Service: 12/09/24 Chief complaint: Acute appendicitis Narrative: Frankie Guillaume is a 24 year old male here in the ER because of abdominal pain. He actually describes this mostly on the epigastric area and on the right side. He says that this may have started 3 days ago He says he is homeless and has other multiple issues so he decided to come to the ED today. He had does have a history of bipolar disorder and asthma. He has a known heavy drinker of alcohol. He says that he has not had any alcohol today. He denies IV drug abuse. He says he takes marijuana once in a while. He denies any fever or chills. Review of his records show that he had seen in the ER here for alcohol intoxication twice the past 6 weeks. He was actually here alcohol intoxication 3 days ago. 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 This was in [place], [place]. Review of Systems Constitutional: Constitutional: Denies chills, Denies fever(s), Reports malaise and Reports weakness Cardiovascular: Cardiovascular: Denies chest pain, Denies dyspnea and Denies dyspnea on exertion Respiratory: Respiratory: Denies cough, Denies dyspnea and Denies dyspnea on exertion Gastrointestinal: Gastrointestinal: Denies hematochezia and Denies change in bowel habits Genitourinary: Genitourinary: Denies hematuria and Denies difficulty urinating Musculoskeletal: Musculoskeletal: Denies back pain and Denies limited range of motion Neurologic: Reports weakness Psychiatric: Psychiatric: Reports depression and Reports mood swings PMFSH Past Medical History Medical History Alcohol abuse Mild intermittent asthma Peripheral neuropathy Bipolar 1 disorder Hypertension Family History Family History Mother Hypertension Father Hypertension Surgical History Surgical History (Updated 12/09/24 @ 11:09 by Iwona Trent RN) History of esophagogastroduodenoscopy (EGD) Social History Social History Household Members: Family Housing: Apartment Are you a primary tire care manager to a significant other at home: No Do you presently have visiting nurse or other home services: No Unable to assess alcohol history related to: Unknown Alcohol intake: current Alcohol intake frequency: 3 or more drinks per day Alcohol type: hard liquor Comment: pt refused bed alarm Patient Tobacco Use Status: Current everyday Tobacco user Tobacco use type: Cigarette Cigarettes Per Day: 8 Years Smoked: 6 Smoked in Last 30 Days: Yes Patient Interested in Nicotine Replacement: No Second Hand Smoke Exposure: Yes Use of substances other than those prescribed or required for medical reasons: Yes Substance Use Type: Marijuana Substance Use Frequency: Occasionally Have you been hit, kicked, punched, or otherwise hurt by someone within the past year? If so, by whom?: No Are you DNR?: No Advance Directives: No Advance Directives Information Provided: No Recently lost weight without trying: No Nutrition Risks: No Nutritional Risk service: No Meds Allergies Allergy/AdvReac Type Severity Reaction Status Date / Time naproxen [From Naprosyn] Allergy Mild Vomiting Verified 12/09/24 10:06 Active Medications: Current Medications Acetaminophen (Acetaminophen 325 Mg Tablet) 650 mg PO Q6H PRN PRN Reason: Pain, Mild 1-3,fever,headache Calcium Carbonate (Calcium Carbonate 750 Mg Tab.Chew) 750 mg PO Q4H PRN PRN Reason: Heartburn Lactated Ringer's (Lr) 1,000 mls @ 100 mls/hr IVCONT .Q10H [facility] Last Admin: 12/08/24 19:52 Dose: 100 mls/hr Melatonin (Melatonin 3 Mg Tablet) 6 mg PO BEDTIME PRN PRN Reason: Insomnia Morphine Sulfate (Morphine Sulfate 4 Mg/Ml Cartridge) 3 mg IVPUSH Q4H PRN; Protocol PRN Reason: Pain, Severe (Pain Scale 7-10) Sodium Chloride (0.9 % Sodium Chloride Flush 3 Ml Syringe) 3 ml IVFLUSH QSHIFT [facility] Home Medications ?Medication ?Instructions ?Recorded ?Confirmed ?Last Taken ?Type albuterol sulfate 2.5 mg/3 mL 2.5 mg inhalation Q6H PRN wheezing 10/20/24 12/09/24 Unknown History (0.083 %) solution for nebulization albuterol sulfate 90 mcg/actuation 2 puff inhalation Q4H PRN 10/20/24 12/09/24 Unknown History aerosol inhaler (Ventolin HFA) Shortness Of Breath Or Wheezing buspirone 5 mg tablet 5 mg PO BID 10/20/24 12/09/24 12/06/24 History hydroxyzine HCl 50 mg tablet 50 mg PO Q6H PRN itch 10/20/24 12/09/24 Unknown History pantoprazole 40 mg tablet,delayed 40 mg PO DAILY@0630 10/20/24 12/09/24 12/06/24 History release Physical Exam Vital Signs: Vital Signs: Last Vital Signs Temp 98.2 F 12/08/24 18:07 Pulse 89 12/08/24 18:07 Resp 16 12/08/24 18:07 BP 151/84 H 12/08/24 18:07 Pulse Ox 97 12/08/24 18:07 O2 Del Method Room Air 12/08/24 18:07 BMI result Body Mass Index 31.6 Const: Other: Appears drowsy General: no acute distress Resp: Effort & Inspection: normal respiratory effort Cardio: Rate: regular rate GI: Palpation (GI): Soft to palpation, not firm, Tenderness to palpation present (GI) (Mild tenderness epigastric area and right side), no guarding and not rigid Results Results Labs: Short CBC 12/08/24 Range/Units 15:54 WBC 6.6 (4.8-10.8) X10*3/uL Hgb 11.7 L (14.0-18.0) g/dl Hct 34.9 L (42.0-52.0) % Plt Count 330 (160-400) X10*3/uL BMP 12/08/24 16:43 Sodium 144 Potassium 3.7 Chloride 109 H Carbon Dioxide 26 BUN 9 Creatinine 0.82 Calcium 8.7 Liver Function 12/08/24 Range/Units 16:43 Total Bilirubin 0.3 (0.0-1.0) mg/dL Direct Bilirubin 0.1 (0.0-0.5) mg/dL AST 23 (5-37) U/L ALT 12 (0-40) U/L Alkaline Phosphatase 109 (39-117) U/L Albumin 3.9 (3.5-5.0) g/dL Laboratory Results WBC 6.6 X10*3/uL (4.8-10.8) 12/08/24 15:54 RBC 3.70 X10*6/uL (4.60-5.80) L 12/08/24 15:54 Hgb 11.7 g/dl (14.0-18.0) L 12/08/24 15:54 Hct 34.9 % (42.0-52.0) L 12/08/24 15:54 MCV 94.3 fL (80.0-98.0) 12/08/24 15:54 MCH 31.6 pg (27.0-33.0) 12/08/24 15:54 MCHC 33.5 g/dl (31.0-36.0) 12/08/24 15:54 RDW 14.6 % (11.0-16.0) 12/08/24 15:54 Plt Count 330 X10*3/uL (160-400) 12/08/24 15:54 MPV 9.4 fL (9.4-12.4) 12/08/24 15:54 Immature Gran % (Auto) 0.5 % (0.0-0.4) H 12/08/24 15:54 Neut % (Auto) 69.6 % (45-73) 12/08/24 15:54 Lymph % (Auto) 23.5 % (20-40) 12/08/24 15:54 [place] % (Auto) 6.1 % (2-11) 12/08/24 15:54 Eos % (Auto) 0.0 % (0-4) 12/08/24 15:54 Baso % (Auto) 0.3 % (0-2) 12/08/24 15:54 Lymph # (Auto) 1.5 X10*3/uL (1.2-4.9) 12/08/24 15:54 [place] # (Auto) 0.4 X10*3/uL (0.1-1.2) 12/08/24 15:54 Eos # (Auto) 0.0 X10*3/uL (0.0-0.4) 12/08/24 15:54 Baso # (Auto) 0.0 X10*3/uL (0.0-0.2) 12/08/24 15:54 Abs Immat Gran (auto) 0.03 X10*3/uL (0.00-0.03) 12/08/24 15:54 Absolute Neuts (auto) 4.6 x10*3/uL (2.0-8.3) 12/08/24 15:54 Absolute Nucleated RBC 0.000 X10*3/uL (0.0-0.012) 12/08/24 15:54 Nucleated RBC % (auto) 0.0 /100WBC (0.0-0.2) 12/08/24 15:54 Sodium 144 mmol/L (135-145) 12/08/24 16:43 Potassium 3.7 mmol/L (3.3-5.1) 12/08/24 16:43 Chloride 109 mmol/L (96-108) H 12/08/24 16:43 Carbon Dioxide 26 mmol/L (22-29) 12/08/24 16:43 Anion Gap 13 (12-20) 12/08/24 16:43 BUN 9 mg/dL (9-16) 12/08/24 16:43 Creatinine 0.82 mg/dL (0.5-1.4) 12/08/24 16:43 Estim Creat Clear Calc 171.6 12/08/24 16:43 Estimated GFR > 60 12/08/24 16:43 Random Glucose 70 mg/dL (60-115) 12/08/24 16:43 Calcium 8.7 mg/dL (8.4-10.2) 12/08/24 16:43 Total Bilirubin 0.3 mg/dL (0.0-1.0) 12/08/24 16:43 Direct Bilirubin 0.1 mg/dL (0.0-0.5) 12/08/24 16:43 AST 23 U/L (5-37) 12/08/24 16:43 ALT 12 U/L (0-40) 12/08/24 16:43 Alkaline Phosphatase 109 U/L (39-117) 12/08/24 16:43 Total Protein 6.7 g/dL (6.5-8.0) 12/08/24 16:43 Albumin 3.9 g/dL (3.5-5.0) 12/08/24 16:43 Lipase 21 U/L (8-78) 12/08/24 16:43 Ethyl Alcohol < 10 mg/dL 12/08/24 16:43 Influenza Type A (PCR) NEGATIVE (Negative) 12/08/24 15:54 Influenza Type B (PCR) NEGATIVE (Negative) 12/08/24 15:54 RSV RNA Qual (PCR) NEGATIVE (Negative) 12/08/24 15:54 SARS-CoV-2 RNA (RT-PCR) NEGATIVE (Negative) 12/08/24 15:[address] scan report/results: report reviewed and image reviewed CT scan - pelvis: report reviewed and image reviewed Additional studies: CT scan Appendix is dilated with surrounding fat stranding. No perforation or abscess. Pelvic organs are within normal limits. The bones are intact. IMPRESSION: 1. Acute appendicitis without evidence of perforation or abscess. Assessment and Plan (1) Acute appendicitis: Status: Acute 24-year-old male here because of vague abdominal pain. He had a CAT scan of the abdomen suggesting acute appendicitis. This note of thickening of the gallbladder wall along with some barbara appendiceal stranding His abdominal exam is otherwise benign. He has no leukocytosis I did explain to him the option of proceeding with laparoscopic appendectomy with possible open appendectomy. I explained to him the technique of this procedure. I reviewed the risks including but not limited to bleeding, infections, injury to other organs including bowel urinary tract, current risk of anesthesia, staple line leak, as well as the benefits and alternatives. He seems to be receptive to this option. He does state that he was minimal pain at this time I will put him on the add on schedule for tomorrow I have asked for a hospitalist consult in view of his significant ETOH use. He appears drowsy currently but does not seem to be in the withdrawal. He also has asthma and bipolar disease. Quality Stroke Does the patient have a stroke diagnosis?: No VTE Prior VTE?: No VTE Risk Level:: Medical - low VTE Device Contraindication: N/A - Device Ordered VTE Drug Contraindication: Treatment Not Indicated Procedures Date of Service Date of Service: 12/09/24
[2024-12-08] MEDS: PHENobarbitaL sodium 130 MG/ML IM ONCE 248 MG IM (22:26)
[2024-12-08 22:33] VITALS: BP 173/76; PULSE 75; RESP 16; TEMP 36.8; O2SAT 98
[2024-12-08 22:42] LABS: Amphetamine Screen Urine Not Detected (Not Detect); Barbiturates, Urine Not Detected (Not Detect); Benzodiazepines Screen Urine Not Detected (Not Detect); Buprenorphine Scr Not Detected (Not Detect); Cannabinoid Screen Urine Not Detected (Not Detect); Cocaine Screen Urine Not Detected (Not Detect); Fentanyl, urine Not Detected (Not Detect); Methadone Screen, Urine Not Detected (Not Detect); Opiate Screen Urine Not Detected (Not Detect); Oxycodone Screen Urine Not Detected (Not Detect); Phencyclidine Screen Urine Not Detected (Not Detect)
--- NOTE | 2024-12-08 22:55 | HO.PM.IMCN ---
History of Present Illness Data of Consult Service Date: 12/08/24 Requesting physician: Otilio Siddiqui Primary Care Provider: Jamil Navarro MD HPI Reason for consult: medical consult Patient is a 24-year-old male with a past medical history significant for alcohol abuse, mild intermittent asthma and bipolar, presented to the ED with nausea, vomiting and abdominal pain x3 days. He was found to have acute appendicitis and was admitted by surgery and plan for appendectomy tomorrow. Medical consult placed by Dr. Siddiqui. The patient reports that he has had a persistent cough for weeks, productive with green/yellow sputum but denies any fever or chills. He does have nausea and vomiting which he feels is more related to his current appendicitis. He has mild intermittent asthma for which he uses albuterol but reports he has not taken this in days. His cough is causing worsening abdominal pain due to tightening of the abdomen. He also reports alcohol abuse, 1 pt of alcohol per day. He reports a recent alcohol withdrawal seizure and was admitted to [facility] and has a history of admission to the ICU in [place] for alcohol withdrawal. He reports his last drink was last night. He is currently having some alcohol withdrawal symptoms including sensitivity to light, anxiety, nausea, agitation. He also complains of sore throat/esophagitis which he reports is chronic. Review of Systems Constitutional: Constitutional: Denies chills, Denies fatigue, Denies fever(s) and Reports headache(s) Eyes: Eyes: Denies change in vision and Reports photophobia ENT: Reports headache(s), Denies nasal congestion, Denies nasal discharge and Reports sore throat (chronic) Cardiovascular: Cardiovascular: Denies chest pain, Denies rapid heart rate, Denies leg edema, Denies lightheadedness and Denies dyspnea Respiratory: Respiratory: Reports chest congestion, Reports cough, Denies dyspnea and Denies wheezing Gastrointestinal: Gastrointestinal: Reports as per HPI, Reports abdominal pain, Denies nausea and Reports vomiting Genitourinary: Genitourinary: Denies dysuria, Denies urinary frequency and Denies urinary hesitancy Musculoskeletal: Musculoskeletal: Denies muscle cramps and Denies tingling Integumentary/Breasts: Skin/Breast: Denies rash Neurologic: Denies confusion, Reports headache(s), Denies Other visual disturbances, Denies seizure-like activity, Denies tingling and Denies paresthesias Psychiatric: Psychiatric: Denies confusion, Denies visual hallucinations and Denies hallucinations Endocrine: Endocrine: Denies fatigue Hematologic/Lymphatic: Hematologic/Lymphatic: Denies easy bleeding and Denies easy bruising Allergic/Immunologic: Allergic/Immunologic: Denies wheezing COUNT INCLUDES THE [facility] Medical History (Updated 12/08/24 @ 23:58 by Adriana Herrera PA-C) Alcohol abuse Mild intermittent asthma Peripheral neuropathy Bipolar 1 disorder Hypertension Functional capacity: independent ambulation Family History Mother Hypertension Father Hypertension Social History Household Members: Family Housing: Apartment Do you presently have visiting nurse or other home services: No Unable to assess alcohol history related to: Unknown Alcohol intake: current Alcohol intake frequency: 3 or more drinks per day Alcohol type: hard liquor Comment: pt refused bed alarm Patient Tobacco Use Status: Current everyday Tobacco user Tobacco use type: Cigarette Cigarettes Per Day: 8 Years Smoked: 6 Smoked in Last 30 Days: Yes Second Hand Smoke Exposure: Yes Use of substances other than those prescribed or required for medical reasons: Yes Substance Use Type: Marijuana Advance Directives: No Advance Directives Information Provided: No Nutrition Risks: No Nutritional Risk service: No Narrative: homeless, drinks 1 pt of etoh/day. smokes about 10 cigs/day. no drug use. Meds Allergies Allergy/AdvReac Type Severity Reaction Status Date / Time naproxen [From Naprosyn] Allergy Mild Vomiting Verified 12/08/24 15:33 Active Medications: Current Medications Acetaminophen (Acetaminophen 325 Mg Tablet) 650 mg PO Q6H PRN PRN Reason: Pain, Mild 1-3,fever,headache Albuterol Sulfate (Albuterol Sulfate 90 Mcg 8 Gm Inhaler) 2 puff INHALE RQ4H PRN PRN Reason: Wheezing Benzonatate (Benzonatate 100 Mg Capsule) 100 mg PO TID PRN PRN Reason: Cough Calcium Carbonate (Calcium Carbonate 750 Mg Tab.Chew) 750 mg PO Q4H PRN PRN Reason: Heartburn Albuterol Sulfate 2.5 mg/ (Albuterol/Ipratropium 3 ml) 0 mg INHALE Q4H PRN PRN Reason: Shortness of Breath/Wheezing Folic Acid (Folic Acid 1 Mg Tablet) 1 mg PO DAILY [facility] Stop: 12/14/24 08:59 Lactated Ringer's (Lr) 1,000 mls @ 100 mls/hr IVCONT .Q10H [facility] Last Admin: 12/08/24 19:52 Dose: 100 mls/hr Piperacillin Sod/Tazobactam (Sod 3.375 gm/ Sodium Chloride) 50 mls @ 100 mls/hr IV Q6H [facility] Melatonin (Melatonin 3 Mg Tablet) 6 mg PO BEDTIME PRN PRN Reason: Insomnia Morphine Sulfate (Morphine Sulfate 4 Mg/Ml Cartridge) 3 mg IVPUSH Q4H PRN; Protocol PRN Reason: Pain, Severe (Pain Scale 7-10) Multivitamins/Vitamin C (Multivitamin Tablet) 1 tab PO DAILY [facility] Stop: 12/14/24 08:59 Nicotine (Nicotine 14 Mg Patch.Td24) 14 mg TRANSDERMA DAILY [facility] Pantoprazole Sodium (Pantoprazole Sodium 40 Mg/10 Ml Vial) 40 mg IVPUSH DAILY@0630 [facility] Pharmacy Consult (Consult Rx Etoh Phenob Im/Po) 1 each MISCELLANE ONCE PRN; Protocol PRN Reason: Consult order Phenobarbital (Phenobarbital 30 Mg Tablet) 60 mg PO BID [facility] Stop: 12/10/24 21:01 Phenobarbital (Phenobarbital 30 Mg Tablet) 30 mg PO BID [facility] Stop: 12/12/24 21:01 Phenobarbital (Phenobarbital 15 Mg Tablet) 15 mg PO DAILY [facility] Stop: 12/14/24 09:01 Phenobarbital Sodium (Phenobarbital Sodium 130 Mg/Ml Vial Im Q3hx2) 186 mg IM Q3H [facility] Stop: 12/09/24 04:01 Sodium Chloride (0.9 % Sodium Chloride Flush 3 Ml Syringe) 3 ml IVFLUSH QSHIFT [facility] Thiamine HCl (Thiamine Hcl 100 Mg Tablet) 100 mg PO DAILY [facility] Stop: 12/14/24 08:59 Home Medications ?Medication ?Instructions ?Recorded ?Confirmed ?Last Taken ?Type albuterol sulfate 2.5 mg/3 mL 2.5 mg inhalation Q6H PRN wheezing 10/20/24 10/20/24 Unknown History (0.083 %) solution for nebulization albuterol sulfate 90 mcg/actuation 2 puff inhalation Q4H PRN 10/20/24 10/20/24 Unknown History aerosol inhaler (Ventolin HFA) Shortness Of Breath Or Wheezing buspirone 5 mg tablet 5 mg PO BID 10/20/24 10/20/24 Unknown History fluticasone furoate 200 1 ea inhalation DAILY PRN 10/20/24 10/20/24 Unknown History mcg-vilanterol 25 mcg/dose Shortness Of Breath Or Wheezing inhalation powder (Breo Ellipta) hydroxyzine HCl 50 mg tablet 50 mg PO Q6H PRN itch 10/20/24 10/20/24 Unknown History olanzapine 5 mg tablet 5 mg PO BEDTIME 10/20/24 10/20/24 Unknown History pantoprazole 40 mg tablet,delayed 40 mg PO DAILY PRN Acid Reflux 10/20/24 10/20/24 Unknown History release sucralfate 1 gram tablet 1 g PO BID PRN Pain 10/20/24 10/20/24 Unknown History Physical Exam Vital Signs and Narrative: Vital Signs: Last Vital Signs Temp 98.2 F 12/08/24 22:33 Pulse 75 12/08/24 22:33 Resp 16 12/08/24 22:33 BP 173/76 H 12/08/24 22:33 Pulse Ox 98 12/08/24 22:33 O2 Del Method Room Air 12/08/24 22:33 BMI result Body Mass Index 31.6 General: AOx3, no acute distress Resp: mild expiratory wheezing. rhonchi bilaterally. no crackles. coughing throughout exam. no respiratory distress CVS: S1, S2, RRR GI: +BS, tender throughout, no distention Skin: Warm, dry Neuro: Cranial nerves II-XII grossly intact bilaterally. Motor grossly intact bilaterally Extremities: No LE edema Psych: Appropriate affect Const: General: No confusion Orientation/consciousness: No confusion Eyes: Direct Ophthalmoscopy: photophobia Neuro: General: No confusion Results Labs 12/08/24 15:54 12/08/24 16:43 Labs: Laboratory Results - last 24 hr 12/08/24 12/08/24 12/08/24 10:18 15:54 16:43 MCV 94.3 MCH 31.6 MCHC 33.5 RDW 14.6 Plt Count 330 MPV 9.4 Immature Gran % (Auto) 0.5 H Neut % (Auto) 69.6 Lymph % (Auto) 23.5 [place] % (Auto) 6.1 Eos % (Auto) 0.0 Baso % (Auto) 0.3 Lymph # (Auto) 1.5 [place] # (Auto) 0.4 Eos # (Auto) 0.0 Baso # (Auto) 0.0 Abs Immat Gran (auto) 0.03 Absolute Neuts (auto) 4.6 Absolute Nucleated RBC 0.000 Nucleated RBC % (auto) 0.0 Anion Gap 13 Estim Creat Clear Calc 171.6 Estimated GFR > 60 Random Glucose 70 Calcium 8.7 Total Bilirubin 0.3 Direct Bilirubin 0.1 AST 23 ALT 12 Alkaline Phosphatase 109 Total Protein 6.7 Albumin 3.9 Lipase 21 Urine Opiates Screen Not Detected Ur Buprenorphine Scrn Not Detected Ur Oxycodone Screen Not Detected Urine Methadone Screen Not Detected Urine Fentanyl Screen Not Detected Ur Barbiturates Screen Not Detected Ur Phencyclidine Scrn Not Detected Ur Amphetamines Screen Not Detected U Benzodiazepines Scrn Not Detected Urine Cocaine Screen Not Detected U Marijuana (THC) Screen Not Detected Ethyl Alcohol < 10 Influenza Type A (PCR) NEGATIVE Influenza Type B (PCR) NEGATIVE RSV RNA Qual (PCR) NEGATIVE SARS-CoV-2 RNA (RT-PCR) NEGATIVE Assessment and Plan (1) Preprocedural examination: Status: Acute (2) Acute appendicitis: Status: Acute (3) Alcohol abuse: Status: Acute (4) Asthma with acute exacerbation: Status: Acute (5) Obesity (BMI 30.0-34.9): Status: Chronic Plan Patient is a 24-year-old male with a past medical history significant for alcohol abuse, mild intermittent asthma and bipolar, presented to the ED with nausea, vomiting and abdominal pain x3 days, admitted by surgery for appendectomy tomorrow, medical consult placed. 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 per [facility] records, Dr Siddiqui informed - RCRI risk score 1 - anesthesia risk stratification per anesthesia etoh abuse - etoh <10, drinks 1 pt/day, hx of etoh withdrawal seizure and ICU stay - monitor CIWA - phenobarb protocol - consider addiction med consult - folic acid, thiamine, multivitamin - seizure precautions - etoh cessation discussed asthma with acute exacerbation - mild wheezing on exam - persisent cough - CXR negative - covid/flu/rsv negative - duenebs Q4H PRN - Tessalon TID PRN bipolar - continue home meds Thank you for allowing me to participate in the pt's care. Will continue to follow. Please contact the medical team if any questions or concerns.
[2024-12-09] VITALS (16 sets, daily range): BP systolic 131–190; BP diastolic 58–112; PULSE 56–112; RESP 15–22; TEMP 36.2–37.3; O2SAT 94–100; BMI 30.3
[2024-12-09] MEDS: Piperacillin Sodium/Tazobactam 3.375 GM in 0.9 % Sodium Chloride 50 ML IV ×4 (02:09→18:00)
[2024-12-09] MEDS: PHENobarbitaL sodium 130 MG/ML VIAL IM Q3Hx2 186 MG IM (02:14)
--- NOTE | 2024-12-09 05:23 | PC.NURSE ---
pt adamantly refused 3rd phenobarb shot. pt education provided, still refused.
[2024-12-09] MEDS: Lactated Ringers 1,000 ML 100 ML IVCONT ×2 (05:58→15:51)
--- NOTE | 2024-12-09 06:16 | PM.EVENT ---
Event Note Date of Service: 12/09/24 Event Note: pt adamantly refusing last phenobarb injection for unknown reason. nurse states he is mad that he is NPO and has been giving him a hard time. will switch to ativan. 1mg IV push now followed by ativan protocol. CIWA scores have been around 5. Time Spent With Patient Time: Total time managing care of this patient today ____ minutes.
[2024-12-09] MEDS: LORazepam 2 MG/ML VIAL 1 MG IVPUSH (06:50)
[2024-12-09] MEDS: Pantoprazole Sodium 40 MG/10 ML VIAL IVPUSH (06:51)
--- NOTE | 2024-12-09 08:09 | PM.PNGS ---
Subjective Subjective Date of Service: 12/13/24 Interval history: Says he still has some abdominal pain States that his abdomen feels ?tight? No events overnight Physical Exam Vital Signs: Vital Signs: Last Vital Signs Temp 98.2 F 12/08/24 22:33 Pulse 75 12/08/24 22:33 Resp 16 12/08/24 22:33 BP 173/76 H 12/08/24 22:33 Pulse Ox 98 12/08/24 22:33 O2 Del Method Room Air 12/08/24 22:33 BMI result Body Mass Index 31.6 Const: Other: Initially asleep, looks drowsy, does answer questions General: comfortable and no acute distress Resp: Effort & Inspection: normal respiratory effort Cardio: Rate: regular rate GI: Palpation (GI): Soft to palpation, not firm, Tenderness to palpation present (GI) and no guarding Objective Data Active Medications Acetaminophen (Acetaminophen 325 Mg Tablet) 650 mg PO Q6H PRN PRN Reason: Pain, Mild 1-3,fever,headache Albuterol Sulfate (Albuterol Sulfate 90 Mcg 8 Gm Inhaler) 2 puff INHALE RQ4H PRN PRN Reason: Wheezing Benzonatate (Benzonatate 100 Mg Capsule) 100 mg PO TID PRN PRN Reason: Cough Calcium Carbonate (Calcium Carbonate 750 Mg Tab.Chew) 750 mg PO Q4H PRN PRN Reason: Heartburn Albuterol Sulfate 2.5 mg/ (Albuterol/Ipratropium 3 ml) 0 mg INHALE Q4H PRN PRN Reason: Shortness of Breath/Wheezing Folic Acid (Folic Acid 1 Mg Tablet) 1 mg PO DAILY [facility] Stop: 12/14/24 08:59 Lactated Ringer's (Lr) 1,000 mls @ 100 mls/hr IVCONT .Q10H [facility] Last Admin: 12/09/24 05:58 Dose: 100 mls/hr Documented By: ABAD Piperacillin Sod/Tazobactam (Sod 3.375 gm/ Sodium Chloride) 50 mls @ 100 mls/hr IV Q6H [facility] Last Admin: 12/09/24 07:59 Dose: 100 mls/hr Documented By: ADOLFO Lorazepam (Lorazepam 1 Mg Tablet) 1 mg PO Q4H [facility]; Taper Stop: 12/13/24 08:59 Melatonin (Melatonin 3 Mg Tablet) 6 mg PO BEDTIME PRN PRN Reason: Insomnia Morphine Sulfate (Morphine Sulfate 4 Mg/Ml Cartridge) 3 mg IVPUSH Q4H PRN; Protocol PRN Reason: Pain, Severe (Pain Scale 7-10) Multivitamins/Vitamin C (Multivitamin Tablet) 1 tab PO DAILY [facility] Stop: 12/14/24 08:59 Nicotine (Nicotine 14 Mg Patch.Td24) 14 mg TRANSDERMA DAILY [facility] Last Admin: 12/09/24 08:00 Dose: Not Given Documented By: ADOLFO Non-Admin Reason: Patient Refused Pantoprazole Sodium (Pantoprazole Sodium 40 Mg/10 Ml Vial) 40 mg IVPUSH DAILY@0630 [facility] Last Admin: 12/09/24 06:51 Dose: 40 mg Documented By: ABAD Sodium Chloride (0.9 % Sodium Chloride Flush 3 Ml Syringe) 3 ml IVFLUSH QSHIFT [facility] Last Admin: 12/09/24 08:00 Dose: Not Given Documented By: ADOLFO Non-Admin Reason: IV Running Thiamine HCl (Thiamine Hcl 100 Mg Tablet) 100 mg PO DAILY [facility] Stop: 12/14/24 08:59 Labs 12/10/24 07:17 12/10/24 07:17 Labs: Laboratory Results - last 24 hr 12/08/24 12/08/24 12/08/24 10:18 15:54 16:43 MCV 94.3 MCH 31.6 MCHC 33.5 RDW 14.6 Plt Count 330 MPV 9.4 Immature Gran % (Auto) 0.5 H Neut % (Auto) 69.6 Lymph % (Auto) 23.5 [place] % (Auto) 6.1 Eos % (Auto) 0.0 Baso % (Auto) 0.3 Lymph # (Auto) 1.5 [place] # (Auto) 0.4 Eos # (Auto) 0.0 Baso # (Auto) 0.0 Abs Immat Gran (auto) 0.03 Absolute Neuts (auto) 4.6 Absolute Nucleated RBC 0.000 Nucleated RBC % (auto) 0.0 Anion Gap 13 Estim Creat Clear Calc 171.6 Estimated GFR > 60 Random Glucose 70 Calcium 8.7 Total Bilirubin 0.3 Direct Bilirubin 0.1 AST 23 ALT 12 Alkaline Phosphatase 109 Total Protein 6.7 Albumin 3.9 Lipase 21 Urine Opiates Screen Not Detected Ur Buprenorphine Scrn Not Detected Ur Oxycodone Screen Not Detected Urine Methadone Screen Not Detected Urine Fentanyl Screen Not Detected Ur Barbiturates Screen Not Detected Ur Phencyclidine Scrn Not Detected Ur Amphetamines Screen Not Detected U Benzodiazepines Scrn Not Detected Urine Cocaine Screen Not Detected U Marijuana (THC) Screen Not Detected Ethyl Alcohol < 10 Influenza Type A (PCR) NEGATIVE Influenza Type B (PCR) NEGATIVE RSV RNA Qual (PCR) NEGATIVE SARS-CoV-2 RNA (RT-PCR) NEGATIVE Procedures Date of Service Date of Service: 12/13/24 Progress Note: A&P Assessment and plan (1) Acute appendicitis: Status: Acute Assessment and Plan: He says he still has some tenderness He wants to proceed with the appendectomy I explained the technique of laparoscopic appendectomy, possible open I reviewed the risks including but not limited to bleeding, infections, staple line leak, injury to other organs including bowel and the urinary tract, inherent risks of anesthesia He has given consent He says he does not have any family member around Appreciate hospitalist consult CIWA score low at 5 he says he was told he had a difficult airway on intubation after he lost his airway while intoxicated last year Time Spent With Patient Time: Total time managing care of this patient today ____ minutes. Quality Stroke Does the patient have a stroke diagnosis?: No VTE Prior VTE?: No VTE Risk Level:: Medical - low VTE Device Contraindication: N/A - Device Ordered VTE Drug Contraindication: Treatment Not Indicated
[2024-12-09] MEDS: LORazepam 1 MG TABLET PO ×4 (09:03→22:00)
--- NOTE | 2024-12-09 09:34 | HO.PM.IMPN ---
Subjective Subjective Date of Service: 12/09/24 Interval History: follow up visit for alcohol use disorder, with acute appendicitis. During assessment pt is easily arousable but fatigued, often falling back to sleep, limited engagement. Denies withdrawal symptoms during eval. Not in any apparent acute distress. Review of Systems reports feeling tired Cardiovascular denies palpitations, diaphoresis or pain Respiratory denies cough, dyspnea or pain Gastrointestinal denies n/v, states abd. pain not present at current Physical Exam Vital Signs: Vital Signs: Last Vital Signs Temp 98.2 F 12/08/24 22:33 Pulse 75 12/08/24 22:33 Resp 16 12/08/24 22:33 BP 173/76 H 12/08/24 22:33 Pulse Ox 98 12/08/24 22:33 O2 Del Method Room Air 12/08/24 22:33 BMI result Body Mass Index 31.6 Const: General: cooperative, comfortable, no acute distress, well developed, alert and tired appearing Nutritional Appearance: well nourished and obese Orientation/consciousness: patient oriented x3 Resp: Effort & Inspection: normal respiratory effort and able to speak in complete sentences Auscultation: diminished lung sounds bilateral in the lower lung dangelo Cardio: Jugular venous distension: no JVD Rate: regular rate Rhythm: regular rhythm GI: Other: declined changing position to assess and percuss, however was able to auscultate Auscultation: normal bowel sounds Neuro: General: patient oriented x3 Objective Data Active Medications Acetaminophen (Acetaminophen 325 Mg Tablet) 650 mg PO Q6H PRN PRN Reason: Pain, Mild 1-3,fever,headache Albuterol Sulfate (Albuterol Sulfate 90 Mcg 8 Gm Inhaler) 2 puff INHALE RQ4H PRN PRN Reason: Wheezing Benzonatate (Benzonatate 100 Mg Capsule) 100 mg PO TID PRN PRN Reason: Cough Calcium Carbonate (Calcium Carbonate 750 Mg Tab.Chew) 750 mg PO Q4H PRN PRN Reason: Heartburn Albuterol Sulfate 2.5 mg/ (Albuterol/Ipratropium 3 ml) 0 mg INHALE Q4H PRN PRN Reason: Shortness of Breath/Wheezing Folic Acid (Folic Acid 1 Mg Tablet) 1 mg PO DAILY [facility] Stop: 12/14/24 08:59 Lactated Ringer's (Lr) 1,000 mls @ 100 mls/hr IVCONT .Q10H [facility] Last Admin: 12/09/24 05:58 Dose: 100 mls/hr Documented By: ABAD Piperacillin Sod/Tazobactam (Sod 3.375 gm/ Sodium Chloride) 50 mls @ 100 mls/hr IV Q6H [facility] Last Infusion: 12/09/24 08:42 Dose: Infused Documented By: ADOLFO Lorazepam (Lorazepam 1 Mg Tablet) 1 mg PO Q4H [facility]; Taper Stop: 12/13/24 08:59 Last Admin: 12/09/24 09:03 Dose: 1 mg Documented By: ADOLFO Melatonin (Melatonin 3 Mg Tablet) 6 mg PO BEDTIME PRN PRN Reason: Insomnia Morphine Sulfate (Morphine Sulfate 4 Mg/Ml Cartridge) 3 mg IVPUSH Q4H PRN; Protocol PRN Reason: Pain, Severe (Pain Scale 7-10) Multivitamins/Vitamin C (Multivitamin Tablet) 1 tab PO DAILY [facility] Stop: 12/14/24 08:59 Nicotine (Nicotine 14 Mg Patch.Td24) 14 mg TRANSDERMA DAILY [facility] Last Admin: 12/09/24 08:00 Dose: Not Given Documented By: ADOLFO Non-Admin Reason: Patient Refused Pantoprazole Sodium (Pantoprazole Sodium 40 Mg/10 Ml Vial) 40 mg IVPUSH DAILY@0630 [facility] Last Admin: 12/09/24 06:51 Dose: 40 mg Documented By: ABAD Sodium Chloride (0.9 % Sodium Chloride Flush 3 Ml Syringe) 3 ml IVFLUSH QSHIFT [facility] Last Admin: 12/09/24 08:00 Dose: Not Given Documented By: ADOLFO Non-Admin Reason: IV Running Thiamine HCl (Thiamine Hcl 100 Mg Tablet) 100 mg PO DAILY [facility] Stop: 12/14/24 08:59 Labs 12/08/24 15:54 12/08/24 16:43 Labs: Laboratory Results - last 24 hr 12/08/24 12/08/24 12/08/24 10:18 15:54 16:43 MCV 94.3 MCH 31.6 MCHC 33.5 RDW 14.6 Plt Count 330 MPV 9.4 Immature Gran % (Auto) 0.5 H Neut % (Auto) 69.6 Lymph % (Auto) 23.5 [place] % (Auto) 6.1 Eos % (Auto) 0.0 Baso % (Auto) 0.3 Lymph # (Auto) 1.5 [place] # (Auto) 0.4 Eos # (Auto) 0.0 Baso # (Auto) 0.0 Abs Immat Gran (auto) 0.03 Absolute Neuts (auto) 4.6 Absolute Nucleated RBC 0.000 Nucleated RBC % (auto) 0.0 Anion Gap 13 Estim Creat Clear Calc 171.6 Estimated GFR > 60 Random Glucose 70 Calcium 8.7 Total Bilirubin 0.3 Direct Bilirubin 0.1 AST 23 ALT 12 Alkaline Phosphatase 109 Total Protein 6.7 Albumin 3.9 Lipase 21 Urine Opiates Screen Not Detected Ur Buprenorphine Scrn Not Detected Ur Oxycodone Screen Not Detected Urine Methadone Screen Not Detected Urine Fentanyl Screen Not Detected Ur Barbiturates Screen Not Detected Ur Phencyclidine Scrn Not Detected Ur Amphetamines Screen Not Detected U Benzodiazepines Scrn Not Detected Urine Cocaine Screen Not Detected U Marijuana (THC) Screen Not Detected Ethyl Alcohol < 10 Influenza Type A (PCR) NEGATIVE Influenza Type B (PCR) NEGATIVE RSV RNA Qual (PCR) NEGATIVE SARS-CoV-2 RNA (RT-PCR) NEGATIVE Assessment and Plan (1) Appendicitis: Status: Acute Plan 24yo male with a past medical history significant for alcohol abuse, mild intermittent asthma and bipolar, presented to the ED with nausea, vomiting and abdominal pain x3 days, admitted by surgery for appendectomy tomorrow, medical consult placed. 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 and surgery cancelled Plan as per surgery is to treat with antibiotics, continue Zosyn ETOH abuse etoh <10 on arrival, drinks 1 pt/day, hx of withdrawal seizure and ICU stay monitor CIWA treat with phenobarb protocol addiction med consult folic acid, thiamine, multivitamin seizure precautions etoh cessation discussed Acute asthma exacerbation CXR negative covid/flu/rsv negative duonebs Q4H PRN Tessalon TID PRN Bipolar disorder continue home meds DVT prophylaxis with early ambulation full code Quality Stroke Does the patient have a stroke diagnosis?: No VTE Prior VTE?: No VTE Risk Level:: Medical - low VTE Device Contraindication: N/A - Device Ordered VTE Drug Contraindication: Treatment Not Indicated
--- NOTE | 2024-12-09 10:33 | PC.NURSE ---
Report given to SSS RN, taken to OR
--- NOTE | 2024-12-09 10:55 | PHA.MEDREC ---
Addendum entered by Briseida Goldsmith RPh 12/09/24 11:00: reviewed by [facility]. Original Note: Pharmacy Consult ? Medication Reconciliation Pharmacy has completed the medication reconciliation. Spoke to patient to confirm med list. Patient states he is not taking Breo Ellipta , Olanzapine 5 mg, last filled 09/06/24 for 30 days (never started) , Sucralfate 1 g. Patient confirmed me is still taking Buspirone 5 mg, however last fill was 09/06/24 for 30 days, Hydroxyzine HCL 50 mg, however last filled 09/06/24 for 24 days. Patient states he hasn't took his medication in a few days.
--- NOTE | 2024-12-09 10:57 | HO.ANESPROP2 ---
[facility] Active Problems Active Problems: All Active Problems Obesity (BMI 30.0-34.9) (Chronic) Preprocedural examination (Acute) Alcohol abuse (Acute) Appendicitis (Acute) Mild intermittent asthma (Acute) Acute appendicitis (Acute) Alcohol use disorder, moderate, dependence (Acute) Asthma with acute exacerbation (Acute) Past Medical History Medical History Alcohol abuse Mild intermittent asthma Peripheral neuropathy Bipolar 1 disorder Hypertension Functional capacity: independent ambulation Family History Family History Mother Hypertension Father Hypertension Family history of problems with anesthesia: No Surgical History History of Problems with Anesthesia: No Social History Social History Household Members: Family Housing: Apartment Do you presently have visiting nurse or other home services: No Unable to assess alcohol history related to: Unknown Alcohol intake: current Alcohol intake frequency: 3 or more drinks per day Alcohol type: hard liquor Comment: pt refused bed alarm Patient Tobacco Use Status: Current everyday Tobacco user Tobacco use type: Cigarette Cigarettes Per Day: 8 Years Smoked: 6 Smoked in Last 30 Days: Yes Second Hand Smoke Exposure: Yes Use of substances other than those prescribed or required for medical reasons: Yes Substance Use Type: Marijuana Advance Directives: No Advance Directives Information Provided: No Nutrition Risks: No Nutritional Risk service: No Meds Allergies Allergy/AdvReac Type Severity Reaction Status Date / Time naproxen [From Naprosyn] Allergy Mild Vomiting Verified 12/09/24 10:06 Active Medications: Current Medications Acetaminophen (Acetaminophen 325 Mg Tablet) 650 mg PO Q6H PRN PRN Reason: Pain, Mild 1-3,fever,headache Albuterol Sulfate (Albuterol Sulfate 90 Mcg 8 Gm Inhaler) 2 puff INHALE RQ4H PRN PRN Reason: Wheezing Benzonatate (Benzonatate 100 Mg Capsule) 100 mg PO TID PRN PRN Reason: Cough Calcium Carbonate (Calcium Carbonate 750 Mg Tab.Chew) 750 mg PO Q4H PRN PRN Reason: Heartburn Albuterol Sulfate 2.5 mg/ (Albuterol/Ipratropium 3 ml) 0 mg INHALE Q4H PRN PRN Reason: Shortness of Breath/Wheezing Folic Acid (Folic Acid 1 Mg Tablet) 1 mg PO DAILY [facility] Stop: 12/14/24 08:59 Lactated Ringer's (Lr) 1,000 mls @ 100 mls/hr IVCONT .Q10H [facility] Last Admin: 12/09/24 05:58 Dose: 100 mls/hr Piperacillin Sod/Tazobactam (Sod 3.375 gm/ Sodium Chloride) 50 mls @ 100 mls/hr IV Q6H [facility] Last Infusion: 12/09/24 08:42 Dose: Infused Lorazepam (Lorazepam 1 Mg Tablet) 1 mg PO Q4H [facility]; Taper Stop: 12/13/24 08:59 Last Admin: 12/09/24 09:03 Dose: 1 mg Melatonin (Melatonin 3 Mg Tablet) 6 mg PO BEDTIME PRN PRN Reason: Insomnia Morphine Sulfate (Morphine Sulfate 4 Mg/Ml Cartridge) 3 mg IVPUSH Q4H PRN; Protocol PRN Reason: Pain, Severe (Pain Scale 7-10) Multivitamins/Vitamin C (Multivitamin Tablet) 1 tab PO DAILY [facility] Stop: 12/14/24 08:59 Nicotine (Nicotine 14 Mg Patch.Td24) 14 mg TRANSDERMA DAILY [facility] Last Admin: 12/09/24 08:00 Dose: Not Given Pantoprazole Sodium (Pantoprazole Sodium 40 Mg/10 Ml Vial) 40 mg IVPUSH DAILY@0630 [facility] Last Admin: 12/09/24 06:51 Dose: 40 mg Sodium Chloride (0.9 % Sodium Chloride Flush 3 Ml Syringe) 3 ml IVFLUSH QSHIFT [facility] Last Admin: 12/09/24 08:00 Dose: Not Given Thiamine HCl (Thiamine Hcl 100 Mg Tablet) 100 mg PO DAILY [facility] Stop: 12/14/24 08:59 Home Medications ?Medication ?Instructions ?Recorded ?Confirmed ?Last Taken ?Type albuterol sulfate 2.5 mg/3 mL 2.5 mg inhalation Q6H PRN wheezing 10/20/24 12/09/24 Unknown History (0.083 %) solution for nebulization albuterol sulfate 90 mcg/actuation 2 puff inhalation Q4H PRN 10/20/24 12/09/24 Unknown History aerosol inhaler (Ventolin HFA) Shortness Of Breath Or Wheezing buspirone 5 mg tablet 5 mg PO BID 11/12/09/24 12/06/24 History hydroxyzine HCl 50 mg tablet 50 mg PO Q6H PRN itch 10/20/24 12/09/24 Unknown History pantoprazole 40 mg tablet,delayed 40 mg PO DAILY@0630 10/20/24 12/09/24 12/06/24 History release Exam Height,Weight and Vital Signs: Height 6 ft Weight 105.8 kg Last Vital Signs Temp 98.2 F 12/09/24 09:43 Pulse 78 12/09/24 09:43 Resp 15 12/09/24 09:43 BP 146/89 H 12/09/24 09:43 Pulse Ox 98 12/09/24 09:43 O2 Del Method Room Air 12/09/24 09:43 Pertinent Lab Results Pertinent Lab Results: Laboratory Tests 12/08/24 12/08/24 12/08/24 10:18 15:54 16:43 WBC 6.6 RBC 3.70 L Hgb 11.7 L Hct 34.9 L MCV 94.3 MCH 31.6 MCHC 33.5 RDW 14.6 Plt Count 330 MPV 9.4 Immature Gran % (Auto) 0.5 H Neut % (Auto) 69.6 Lymph % (Auto) 23.5 [place] % (Auto) 6.1 Eos % (Auto) 0.0 Baso % (Auto) 0.3 Lymph # (Auto) 1.5 [place] # (Auto) 0.4 Eos # (Auto) 0.0 Baso # (Auto) 0.0 Abs Immat Gran (auto) 0.03 Absolute Neuts (auto) 4.6 Absolute Nucleated RBC 0.000 Nucleated RBC % (auto) 0.0 Sodium 144 Potassium 3.7 Chloride 109 H Carbon Dioxide 26 Anion Gap 13 BUN 9 Creatinine 0.82 Estim Creat Clear Calc 171.6 Estimated GFR > 60 Random Glucose 70 Calcium 8.7 Total Bilirubin 0.3 Direct Bilirubin 0.1 AST 23 ALT 12 Alkaline Phosphatase 109 Total Protein 6.7 Albumin 3.9 Lipase 21 Urine Opiates Screen Not Detected Ur Buprenorphine Scrn Not Detected Ur Oxycodone Screen Not Detected Urine Methadone Screen Not Detected Urine Fentanyl Screen Not Detected Ur Barbiturates Screen Not Detected Ur Phencyclidine Scrn Not Detected Ur Amphetamines Screen Not Detected U Benzodiazepines Scrn Not Detected Urine Cocaine Screen Not Detected U Marijuana (THC) Screen Not Detected Ethyl Alcohol < 10 Influenza Type A (PCR) NEGATIVE Influenza Type B (PCR) NEGATIVE RSV RNA Qual (PCR) NEGATIVE SARS-CoV-2 RNA (RT-PCR) NEGATIVE Airway Mallampati Class: III TM Dist: >3cm Neck ROM: Full Heart: RRR Lungs: CTA- stridorous breathing Assessment and Plan Assessment Anesthesia Assessment: Anesthesia Plan Discussed, Smoking Cess. Discussed and Chart Reviewed Final Anesthetic Review Family History of Problems with Anesthesia: No History of Problems with Anesthesia: No NPO: Yes ASA Class: III and Emergency Final Preanesthetic Review: Meds/Allgs Chart Reviewed, Consent Obtained/Reviewed and Anes Risks/Benef Reviewed Patient Risk: Intermediate Procedure Risk: Intermediate Anesthetic Plan Anesthetic Plan: GA Disposition: Standard PACU
--- NOTE | 2024-12-09 11:00 | PC.NURSE ---
Dr. Loaiza reviewed H&P documentation of patient having subglottis stenosis. dr. loaiza at bedside when patient exhibited his chronic dry cough with no sputum production. assessed patient's breathing. ok to proceed.
[2024-12-09] MEDS: Albuterol Sulfate 90 MCG 8 GM INHALER 2 PUFF INHALE (11:18)
--- NOTE | 2024-12-09 12:21 | PM.EVENT ---
Event Note Date of Service: 12/09/24 Event Note: Patient was brought to the OR for laparoscopic appendectomy. However, the patient has a subglottic stenosis Difficulty with advancing the cuffed area of the ET tube Downsized to 5-1/2 ET tube but the cuff was just barely below the glottis Anesthesia had concerns about this popping out during the procedure Procedure was therefore canceled The patient was extubated The plan is to treat the patient with antibiotics - he does not have an appendicolith so this hopefully will work We will start him on clear liquids today Time Spent With Patient Time: Total time managing care of this patient today ____ minutes.
--- NOTE | 2024-12-09 15:38 | PM.EVENT ---
Event Note Date of Service: 12/09/24 Event Note: Seen postop Breathing okay No shortness of breath I reviewed with him events in the OR - unable to get a stable airway because of his subglottic stenosis so procedure was canceled We will continue to do IV antibiotic and nonoperative treatment He does not have any appendicolith Exam of the abdomen very benign I explained to him the plan Time Spent With Patient Time: Total time managing care of this patient today ____ minutes.
--- NOTE | 2024-12-09 16:10 | MHC.RECOVRN ---
Briefly met with pt to check in and provide support. Pt sitting in bed, awake, alert, engages in conversation but guarded. Pt reports he is interested in a program to address AUD, however, is worried about his mother who is out there on the streets. Pt reports he has called area hospitals looking for his mother and she can not be found. Pt would like to make sure mother is okay prior to going to a program. Currently, pt reports only withdrawal symptom is anxiety. Informed pt t/w will return tomorrow to complete full eval and further discuss treatment options. Pt denies questions or concerns at this time.
[2024-12-09] MEDS: Racepinephrine HCL 0.5 ML VIAL.NEB INHALE (17:48)
--- NOTE | 2024-12-09 18:05 | PC.NURSE ---
Pt upset he can't eat regular food, re: clear liquid diet. Attempted to educated however there is a educational barrier.
[2024-12-09] MEDS: Acetaminophen 325 MG TABLET 650 MG PO (22:45)
[2024-12-10] MEDS: Piperacillin Sodium/Tazobactam 3.375 GM in 0.9 % Sodium Chloride 50 ML IV ×3 (01:42→12:11)
[2024-12-10] MEDS: LORazepam 1 MG TABLET PO ×2 (01:44→06:16)
[2024-12-10] MEDS: Lactated Ringers 1,000 ML 100 ML IVCONT ×2 (01:47→12:01)
[2024-12-10] MEDS: Pantoprazole Sodium 40 MG/10 ML VIAL IVPUSH (06:16)
[2024-12-10 07:35] LABS: Glucose, Whole Blood 115 mg/dL (60-115)
[2024-12-10 07:37] VITALS: BP 128/77; PULSE 72; RESP 16; TEMP 36.6; O2SAT 97
[2024-12-10 07:42] LABS: Hematocrit 34.3 % (42.0-52.0); Hemoglobin 11.7 g/dl (14.0-18.0); Mean Corpuscular HGB Conc 34.1 g/dl (31.0-36.0); Mean Corpuscular Hemoglobin 31.6 pg (27.0-33.0); Mean Corpuscular Volume 92.7 fL (80.0-98.0); Mean Platelet Volume 9.9 fL (9.4-12.4); Platelet Count 271 X10*3/uL (160-400); Red Cell Distribution Width 13.7 % (11.0-16.0); White Blood Count 7.7 X10*3/uL (4.8-10.8)
--- NOTE | 2024-12-10 07:48 | P.PNGS_ITS ---
Subjective Subjective Date of Service: 12/10/24 <Elidia Hercules PA-C - Last Filed: 12/10/24 08:22> 12/10/24 <Otilio Siddiqui MD - Last Filed: 12/10/24 12:54> Interval history: Continues to c/o suprapubic, RLQ pain, denies significant improvement. Tolerating liquids. States he is going to leave to drink alcohol. <Elidia Hercules PA-C - Last Filed: 12/10/24 08:22> Physical Exam 2 Vital Signs: Vital Signs: Last Vital Signs Temp 98 F 12/10/24 07:37 Pulse 72 12/10/24 07:37 Resp 16 12/10/24 07:37 BP 128/77 12/10/24 07:37 Pulse Ox 97 12/10/24 07:37 O2 Del Method Room Air 12/10/24 07:37 O2 Flow Rate 8 12/09/24 12:35 BMI result Body Mass Index 30.3 <Elidia Hercules PA-C - Last Filed: 12/10/24 08:22> Const: General: comfortable, no acute distress and alert <Elidia Hercules PA-C - Last Filed: 12/10/24 08:22> Orientation/consciousness: patient oriented x3 <SIA Herndon Last Filed: 12/10/24 08:22> GI: Inspection: Yes normal to inspection and No distended <Elidia Hercules PA-C - Last Filed: 12/10/24 08:22> Palpation (GI): Soft to palpation, Tenderness to palpation present (GI) in the RLQ, at McBurney's point and suprapubicly; Rovsing's sign negative, no guarding and not rigid <SIA Herndon Last Filed: 12/10/24 08:22> Skin: General skin exam: no rashes or lesions noted <SIA Herndon Last Filed: 12/10/24 08:22> Neuro: General: patient oriented x3 and moves all extremities <SIA Herndon Last Filed: 12/10/24 08:22> Objective Data Active Medications Acetaminophen (Acetaminophen 325 Mg Tablet) 650 mg PO Q6H PRN PRN Reason: Pain, Mild 1-3,fever,headache Last Admin: 12/09/24 22:45 Dose: 650 mg Documented By: JOSE Albuterol Sulfate (Albuterol Sulfate 90 Mcg 8 Gm Inhaler) 2 puff INHALE RQ4H PRN PRN Reason: Wheezing Last Admin: 12/09/24 11:18 Dose: 2 puff Documented By: DERRELL Benzonatate (Benzonatate 100 Mg Capsule) 100 mg PO TID PRN PRN Reason: Cough Calcium Carbonate (Calcium Carbonate 750 Mg Tab.Chew) 750 mg PO Q4H PRN PRN Reason: Heartburn Albuterol Sulfate 2.5 mg/ (Albuterol/Ipratropium 3 ml) 0 mg INHALE Q4H PRN PRN Reason: Shortness of Breath/Wheezing Folic Acid (Folic Acid 1 Mg Tablet) 1 mg PO DAILY [facility] Stop: 12/14/24 08:59 Lactated Ringer's (Lr) 1,000 mls @ 100 mls/hr IVCONT .Q10H [facility] Last Infusion: 12/10/24 02:31 Dose: 100 mls/hr Documented By: JOSE Piperacillin Sod/Tazobactam (Sod 3.375 gm/ Sodium Chloride) 50 mls @ 100 mls/hr IV Q6H [facility] Last Infusion: 12/10/24 07:14 Dose: Infused Documented By: TIMUR Lorazepam (Lorazepam 1 Mg Tablet) 1 mg PO Q4H [facility]; Taper Stop: 12/13/24 08:59 Last Admin: 12/10/24 06:16 Dose: 1 mg Documented By: JOSE Melatonin (Melatonin 3 Mg Tablet) 6 mg PO BEDTIME PRN PRN Reason: Insomnia Morphine Sulfate (Morphine Sulfate 4 Mg/Ml Cartridge) 3 mg IVPUSH Q4H PRN; Protocol PRN Reason: Pain, Severe (Pain Scale 7-10) Multivitamins/Vitamin C (Multivitamin Tablet) 1 tab PO DAILY [facility] Stop: 12/14/24 08:59 Naloxone HCl (Naloxone Hcl 0.4 Mg/Ml Vial) 0.04 mg IVPUSH Q5M PRN PRN Reason: Excessive sedation or RR < 8 Nicotine (Nicotine 14 Mg Patch.Td24) 14 mg TRANSDERMA DAILY [facility] Last Admin: 12/09/24 08:00 Dose: Not Given Documented By: MACKJ Non-Admin Reason: Patient Refused Pantoprazole Sodium (Pantoprazole Sodium 40 Mg/10 Ml Vial) 40 mg IVPUSH DAILY@0630 [facility] Last Admin: 12/10/24 06:16 Dose: 40 mg Documented By: JOSE Sodium Chloride (0.9 % Sodium Chloride Flush 3 Ml Syringe) 3 ml IVFLUSH QSHIFT [facility] Last Admin: 12/10/24 07:14 Dose: Not Given Documented By: TIMUR Non-Admin Reason: IV Running Thiamine HCl (Thiamine Hcl 100 Mg Tablet) 100 mg PO DAILY [facility] Stop: 12/14/24 08:59 <Elidia Hercules PA-C - Last Filed: 12/10/24 08:22> Labs CBC & Chem 7: 12/10/24 07:17 12/10/24 07:17 <Elidia Hercules PA-C - Last Filed: 12/10/24 08:22> Labs: Laboratory Results - last 24 hr 12/10/24 12/10/24 07:17 07:30 MCV 92.7 MCH 31.6 MCHC 34.1 RDW 13.7 Plt Count 271 MPV 9.9 Absolute Nucleated RBC 0.000 Nucleated RBC % (auto) 0.0 POC Glucose 115 <Elidia Hercules PA-C - Last Filed: 12/10/24 08:22> Procedures Date of Service Date of Service: 12/10/24 <Elidia Hercules PA-C - Last Filed: 12/10/24 08:22> 12/10/24 <Otilio Siddiqui MD - Last Filed: 12/10/24 12:54> Progress Note: A&P Assessment and plan (1) Acute appendicitis: Status: Acute <Elidia Hercules PA-C - Last Filed: 12/10/24 08:22> Assessment and Plan: Describes pain although not worse Asking for food No fever overnight WBC normal Abdomen is soft, no peritoneal signs Encouraged to get out of Continue IV antibiotics Plan to advance diet as tolerated Seen and examined independently <Otilio Siddiqui MD - Last Filed: 12/10/24 12:54> Assessment and Plan: Admitted for acute appendicitis with plan for lap appy yesterday but procedure aborted due as anesthesia unable to 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 Nonoperative measures therefore continued. He is clinically appearing well but reports no improvement in his abd pain. RLQ remains tender, no peritoneal signs. VSS, afebrile. WBC remains normal. Cont IV abx for now. Further plan dependent on clinical course. Will advance diet. < Elidia Hercules PA-C - Last Filed: 12/10/24 08:22> Time Spent With Patient Time: Total time managing care of this patient today ____ minutes. <Elidia Hercules PA-C - Last Filed: 12/10/24 08:22> Quality Stroke Does the patient have a stroke diagnosis?: No <Elidia Hercules PA-C - Last Filed: 12/10/24 08:22> VTE Prior VTE?: No <Elidia Hercules PA-C - Last Filed: 12/10/24 08:22> VTE Risk Level:: Medical - low <SIA Herndon Last Filed: 12/10/24 08:22> VTE Device Contraindication: N/A - Device Ordered <SIA Herndon Last Filed: 12/10/24 08:22> VTE Drug Contraindication: Treatment Not Indicated <SIA Herndon Last Filed: 12/10/24 08:22>
[2024-12-10 08:00] LABS: Anion Gap 10 (12-20); Blood Urea Nitrogen 6 mg/dL (9-16); Calcium 8.5 mg/dL (8.4-10.2); Carbon Dioxide 26 mmol/L (22-29); Chloride 105 mmol/L (96-108); Creatinine Clr Calc Pharmacy 146.7; Estimated Glomerular Filt Rate > 60; Glucose Random 125 mg/dL (60-115); Potassium 4.1 mmol/L (3.3-5.1); Sodium 137 mmol/L (135-145)
--- NOTE | 2024-12-10 08:42 | HO.POSTANES ---
Post Anesthesia Evaluation Post Anesthesia Evaluation Date of Service: 12/10/24 Vital Signs: Vital Signs Temp Pulse Resp BP Pulse Ox O2 Del Method 12/10/24 07:37 98 F 72 16 128/77 97 Room Air 12/09/24 23:28 97.3 F 81 18 131/58 L 94 Room Air Anesthesia: General Mental Status: Awake Pain Control: Satisfactory (complains of abd pain, surgery following ) Nausea/Vomiting: None Hydration: Adequate Comments: subglottic stenosis, unable to pass ETT, case cancelled
--- NOTE | 2024-12-10 08:58 | P.PNIM_ITS ---
Subjective Subjective Date of Service: 12/10/24 Interval History: follow up visit for alcohol use disorder, with acute appendicitis. During assessment pt is easily arousable but continuously falling back to sleep is providing very limited engagement. Denies any withdrawal symptoms during eval. Not in any apparent acute distress. No sweating, tremor noted on eval. Review of Systems reports feeling tired Cardiovascular denies palpitations, diaphoresis or pain Respiratory denies cough, dyspnea or pain Gastrointestinal denies n/v, abd. pain at current Physical Exam 2 Vital Signs: Vital Signs: Last Vital Signs Temp 98 F 12/10/24 07:37 Pulse 72 12/10/24 07:37 Resp 16 12/10/24 07:37 BP 128/77 12/10/24 07:37 Pulse Ox 97 12/10/24 07:37 O2 Del Method Room Air 12/10/24 07:37 O2 Flow Rate 8 12/09/24 12:35 BMI result Body Mass Index 30.3 Const: General: no acute distress and tired appearing Nutritional Appearance: well nourished and obese Orientation/consciousness: patient oriented x3 Resp: Effort & Inspection: normal respiratory effort and able to speak in complete sentences Auscultation: diminished lung sounds bilateral in the lower lung dangelo GI: Other: declined percussion, allowed partial palpation Auscultation: normoactive bowel sounds Neuro: General: patient oriented x3 Objective Data Active Medications Acetaminophen (Acetaminophen 325 Mg Tablet) 650 mg PO Q6H PRN PRN Reason: Pain, Mild 1-3,fever,headache Last Admin: 12/09/24 22:45 Dose: 650 mg Documented By: JOSE Albuterol Sulfate (Albuterol Sulfate 90 Mcg 8 Gm Inhaler) 2 puff INHALE RQ4H PRN PRN Reason: Wheezing Last Admin: 12/09/24 11:18 Dose: 2 puff Documented By: DERRELL Benzonatate (Benzonatate 100 Mg Capsule) 100 mg PO TID PRN PRN Reason: Cough Calcium Carbonate (Calcium Carbonate 750 Mg Tab.Chew) 750 mg PO Q4H PRN PRN Reason: Heartburn Albuterol Sulfate 2.5 mg/ (Albuterol/Ipratropium 3 ml) 0 mg INHALE Q4H PRN PRN Reason: Shortness of Breath/Wheezing Folic Acid (Folic Acid 1 Mg Tablet) 1 mg PO DAILY [facility] Stop: 12/14/24 08:59 Lactated Ringer's (Lr) 1,000 mls @ 100 mls/hr IVCONT .Q10H [facility] Last Infusion: 12/10/24 02:31 Dose: 100 mls/hr Documented By: JOSE Piperacillin Sod/Tazobactam (Sod 3.375 gm/ Sodium Chloride) 50 mls @ 100 mls/hr IV Q6H [facility] Last Infusion: 12/10/24 07:14 Dose: Infused Documented By: TIMUR Lorazepam (Lorazepam 1 Mg Tablet) 1 mg PO Q4H [facility]; Taper Stop: 12/13/24 08:59 Last Admin: 12/10/24 08:21 Dose: Not Given Documented By: TIMUR Non-Admin Reason: Very Sleepy, MD aware. Melatonin (Melatonin 3 Mg Tablet) 6 mg PO BEDTIME PRN PRN Reason: Insomnia Morphine Sulfate (Morphine Sulfate 4 Mg/Ml Cartridge) 3 mg IVPUSH Q4H PRN; Protocol PRN Reason: Pain, Severe (Pain Scale 7-10) Multivitamins/Vitamin C (Multivitamin Tablet) 1 tab PO DAILY [facility] Stop: 12/14/24 08:59 Naloxone HCl (Naloxone Hcl 0.4 Mg/Ml Vial) 0.04 mg IVPUSH Q5M PRN PRN Reason: Excessive sedation or RR < 8 Nicotine (Nicotine 14 Mg Patch.Td24) 14 mg TRANSDERMA DAILY [facility] Last Admin: 12/10/24 08:22 Dose: Not Given Documented By: TIMUR Non-Admin Reason: Patient Refused Pantoprazole Sodium (Pantoprazole Sodium 40 Mg/10 Ml Vial) 40 mg IVPUSH DAILY@0630 [facility] Last Admin: 12/10/24 06:16 Dose: 40 mg Documented By: JOSE Sodium Chloride (0.9 % Sodium Chloride Flush 3 Ml Syringe) 3 ml IVFLUSH QSHIFT [facility] Last Admin: 12/10/24 07:14 Dose: Not Given Documented By: TIMUR Non-Admin Reason: IV Running Thiamine HCl (Thiamine Hcl 100 Mg Tablet) 100 mg PO DAILY [facility] Stop: 12/14/24 08:59 Labs 12/10/24 07:17 12/10/24 07:17 Labs: Laboratory Results - last 24 hr 12/10/24 12/10/24 07:17 07:30 MCV 92.7 MCH 31.6 MCHC 34.1 RDW 13.7 Plt Count 271 MPV 9.9 Absolute Nucleated RBC 0.000 Nucleated RBC % (auto) 0.0 Anion Gap 10 L Estim Creat Clear Calc 146.7 Estimated GFR > 60 POC Glucose 115 Random Glucose 125 H Calcium 8.5 Assessment and Plan (1) Alcohol abuse: Status: Acute (2) Appendicitis: Status: Acute Plan 24yo male with a past medical history significant for alcohol abuse, mild intermittent asthma and bipolar, presented to the ED with nausea, vomiting and abdominal pain x3 days, admitted by surgery for appendectomy, surgery has been cancelled due to difficulty to obtain airway, medical consult completed. Acute appendicitis due to subglottic stenosis unable to obtain airway and surgery cancelled Plan as per surgery is to treat with antibiotics, continue Zosyn ETOH abuse etoh <10 on arrival, drinks 1 pt/day, hx of withdrawal seizure and ICU stay monitor CIWA pt refused phenobarb protocol, scheduled lorazapam stopped addiction med consult folic acid, thiamine, multivitamin seizure precautions etoh cessation discussed Acute asthma exacerbation CXR negative covid/flu/rsv negative duonebs Q4H PRN Tessalon TID PRN Bipolar disorder continue home meds DVT prophylaxis with early ambulation full code Hospitalist consult complete, we will sign off Quality Stroke Does the patient have a stroke diagnosis?: No VTE Prior VTE?: No VTE Risk Level:: Medical - low VTE Device Contraindication: N/A - Device Ordered VTE Drug Contraindication: Treatment Not Indicated
--- NOTE | 2024-12-10 09:15 | P.CONAN_ITS ---
[facility] Active Problems Active Problems: All Active Problems Obesity (BMI 30.0-34.9) (Chronic) Preprocedural examination (Acute) Appendicitis (Acute) Acute appendicitis (Acute) Alcohol use disorder, moderate, dependence (Acute) Asthma with acute exacerbation (Acute) Alcohol abuse (Acute) Mild intermittent asthma (Acute) Past Medical History Medical History Alcohol abuse Mild intermittent asthma Peripheral neuropathy Bipolar 1 disorder Hypertension Functional capacity: independent ambulation Family History Family History Mother Hypertension Father Hypertension Family history of problems with anesthesia: No Surgical History Surgical History (Updated 12/09/24 @ 12:08 by Iwona Trent RN) History of bronchoscopy History of esophagogastroduodenoscopy (EGD) Social History Social History Household Members: None Housing: Homeless Are you a primary family day care worker to a significant other at home: No Do you presently have visiting nurse or other home services: No Unable to assess alcohol history related to: Unknown Alcohol intake: current Alcohol intake frequency: 3 or more drinks per day Alcohol type: hard liquor Comment: pt refused bed alarm Patient Tobacco Use Status: Current everyday Tobacco user Tobacco use type: Cigarette Cigarettes Per Day: 10 Years Smoked: 6 Second Hand Smoke Exposure: Yes Substance Use Type: Marijuana service: No Meds Allergies Allergy/AdvReac Type Severity Reaction Status Date / Time naproxen [From Naprosyn] Allergy Mild Vomiting Verified 12/09/24 10:06 Active Medications: Current Medications Acetaminophen (Acetaminophen 325 Mg Tablet) 650 mg PO Q6H PRN PRN Reason: Pain, Mild 1-3,fever,headache Last Admin: 12/09/24 22:45 Dose: 650 mg Albuterol Sulfate (Albuterol Sulfate 90 Mcg 8 Gm Inhaler) 2 puff INHALE RQ4H PRN PRN Reason: Wheezing Last Admin: 12/09/24 11:18 Dose: 2 puff Benzonatate (Benzonatate 100 Mg Capsule) 100 mg PO TID PRN PRN Reason: Cough Calcium Carbonate (Calcium Carbonate 750 Mg Tab.Chew) 750 mg PO Q4H PRN PRN Reason: Heartburn Albuterol Sulfate 2.5 mg/ (Albuterol/Ipratropium 3 ml) 0 mg INHALE Q4H PRN PRN Reason: Shortness of Breath/Wheezing Folic Acid (Folic Acid 1 Mg Tablet) 1 mg PO DAILY [facility] Stop: 12/14/24 08:59 Lactated Ringer's (Lr) 1,000 mls @ 100 mls/hr IVCONT .Q10H [facility] Last Infusion: 12/10/24 02:31 Dose: 100 mls/hr Piperacillin Sod/Tazobactam (Sod 3.375 gm/ Sodium Chloride) 50 mls @ 100 mls/hr IV Q6H [facility] Last Infusion: 12/10/24 07:14 Dose: Infused Lorazepam (Lorazepam 1 Mg Tablet) 1 mg PO Q6H [facility]; Taper Stop: 12/13/24 08:59 Last Admin: 12/10/24 08:21 Dose: Not Given Melatonin (Melatonin 3 Mg Tablet) 6 mg PO BEDTIME PRN PRN Reason: Insomnia Morphine Sulfate (Morphine Sulfate 4 Mg/Ml Cartridge) 3 mg IVPUSH Q4H PRN; Protocol PRN Reason: Pain, Severe (Pain Scale 7-10) Multivitamins/Vitamin C (Multivitamin Tablet) 1 tab PO DAILY [facility] Stop: 12/14/24 08:59 Naloxone HCl (Naloxone Hcl 0.4 Mg/Ml Vial) 0.04 mg IVPUSH Q5M PRN PRN Reason: Excessive sedation or RR < 8 Nicotine (Nicotine 14 Mg Patch.Td24) 14 mg TRANSDERMA DAILY [facility] Last Admin: 12/10/24 08:22 Dose: Not Given Pantoprazole Sodium (Pantoprazole Sodium 40 Mg/10 Ml Vial) 40 mg IVPUSH DAILY@0630 [facility] Last Admin: 12/10/24 06:16 Dose: 40 mg Sodium Chloride (0.9 % Sodium Chloride Flush 3 Ml Syringe) 3 ml IVFLUSH QSHIFT [facility] Last Admin: 12/10/24 07:14 Dose: Not Given Thiamine HCl (Thiamine Hcl 100 Mg Tablet) 100 mg PO DAILY [facility] Stop: 12/14/24 08:59 Home Medications ?Medication ?Instructions ?Recorded ?Confirmed ?Last Taken ?Type albuterol sulfate 2.5 mg/3 mL 2.5 mg inhalation Q6H PRN wheezing 10/20/24 12/09/24 Unknown History (0.083 %) solution for nebulization albuterol sulfate 90 mcg/actuation 2 puff inhalation Q4H PRN 10/20/24 12/09/24 Unknown History aerosol inhaler (Ventolin HFA) Shortness Of Breath Or Wheezing buspirone 5 mg tablet 5 mg PO BID 10/20/24 12/09/24 12/06/24 History hydroxyzine HCl 50 mg tablet 50 mg PO Q6H PRN itch 10/20/24 12/09/24 Unknown History pantoprazole 40 mg tablet,delayed 40 mg PO DAILY@0630 10/20/24 12/09/24 12/06/24 History release Exam Height,Weight and Vital Signs: Height 6 ft Weight 101.4 kg Last Vital Signs Temp 98 F 12/10/24 07:37 Pulse 72 12/10/24 07:37 Resp 16 12/10/24 07:37 BP 128/77 12/10/24 07:37 Pulse Ox 97 12/10/24 07:37 O2 Del Method Room Air 12/10/24 07:37 O2 Flow Rate 8 12/09/24 12:35 Pertinent Lab Results Pertinent Lab Results: Laboratory Tests 12/08/24 12/08/24 12/08/24 10:18 15:54 16:43 WBC 6.6 RBC 3.70 L Hgb 11.7 L Hct 34.9 L MCV 94.3 MCH 31.6 MCHC 33.5 RDW 14.6 Plt Count 330 MPV 9.4 Immature Gran % (Auto) 0.5 H Neut % (Auto) 69.6 Lymph % (Auto) 23.5 [place] % (Auto) 6.1 Eos % (Auto) 0.0 Baso % (Auto) 0.3 Lymph # (Auto) 1.5 [place] # (Auto) 0.4 Eos # (Auto) 0.0 Baso # (Auto) 0.0 Abs Immat Gran (auto) 0.03 Absolute Neuts (auto) 4.6 Absolute Nucleated RBC 0.000 Nucleated RBC % (auto) 0.0 Sodium 144 Potassium 3.7 Chloride 109 H Carbon Dioxide 26 Anion Gap 13 BUN 9 Creatinine 0.82 Estim Creat Clear Calc 171.6 Estimated GFR > 60 POC Glucose Random Glucose 70 Calcium 8.7 Total Bilirubin 0.3 Direct Bilirubin 0.1 AST 23 ALT 12 Alkaline Phosphatase 109 Total Protein 6.7 Albumin 3.9 Lipase 21 Urine Opiates Screen Not Detected Ur Buprenorphine Scrn Not Detected Ur Oxycodone Screen Not Detected Urine Methadone Screen Not Detected Urine Fentanyl Screen Not Detected Ur Barbiturates Screen Not Detected Ur Phencyclidine Scrn Not Detected Ur Amphetamines Screen Not Detected U Benzodiazepines Scrn Not Detected Urine Cocaine Screen Not Detected U Marijuana (THC) Screen Not Detected Ethyl Alcohol < 10 Influenza Type A (PCR) NEGATIVE Influenza Type B (PCR) NEGATIVE RSV RNA Qual (PCR) NEGATIVE SARS-CoV-2 RNA (RT-PCR) NEGATIVE 12/10/24 12/10/24 07:17 07:30 WBC 7.7 RBC 3.70 L Hgb 11.7 L Hct 34.3 L MCV 92.7 MCH 31.6 MCHC 34.1 RDW 13.7 Plt Count 271 MPV 9.9 Immature Gran % (Auto) Neut % (Auto) Lymph % (Auto) [place] % (Auto) Eos % (Auto) Baso % (Auto) Lymph # (Auto) [place] # (Auto) Eos # (Auto) Baso # (Auto) Abs Immat Gran (auto) Absolute Neuts (auto) Absolute Nucleated RBC 0.000 Nucleated RBC % (auto) 0.0 Sodium 137 Potassium 4.1 Chloride 105 Carbon Dioxide 26 Anion Gap 10 L BUN 6 L Creatinine 0.94 Estim Creat Clear Calc 146.7 Estimated GFR > 60 POC Glucose 115 Random Glucose 125 H Calcium 8.5 Total Bilirubin Direct Bilirubin AST ALT Alkaline Phosphatase Total Protein Albumin Lipase Urine Opiates Screen Ur Buprenorphine Scrn Ur Oxycodone Screen Urine Methadone Screen Urine Fentanyl Screen Ur Barbiturates Screen Ur Phencyclidine Scrn Ur Amphetamines Screen U Benzodiazepines Scrn Urine Cocaine Screen U Marijuana (THC) Screen Ethyl Alcohol Influenza Type A (PCR) Influenza Type B (PCR) RSV RNA Qual (PCR) SARS-CoV-2 RNA (RT-PCR) Assessment and Plan Final Anesthetic Review Family History of Problems with Anesthesia: No
--- NOTE | 2024-12-10 10:15 | PC.NURSE ---
Ativan switched to PRN
--- NOTE | 2024-12-10 12:38 | MHC.CM.PN ---
CM met with patient in room 359 for case management assessment + DC planning. The Patient provided minimal information. He did not really participate in the CM interview. Information was obtained by review of the EMR. Patient's last admission was 10/21/24. He was not homeless at that time. He was here for an ER visit 12/05/24. The Recovery Team has been ordered. [facility] self[facility] vs interventions from the Recovery team. He will need assist with transportation.
--- NOTE | 2024-12-10 13:39 | MHC.RECOVRN ---
AUDIT-C Brief Intervention Pt had positive screen for unhealthy alcohol use on admission, subsequently met with t/w to discuss alcohol use and recovery supports/options. This insurance writer met with patient to discuss current alcohol use and concerns related to increased risk of alcohol related problems.? Pt reports 1 pint alcohol daily, states I'll drink anything. Pt did not discuss nor identify how alcohol use has impacted health. Discussed how alcohol use has impacted health, including negative impact on [BH/medical dx]. Withdrawal History: reports hx of seizure Treatment History: ATS x 3 Supports:?mom Discussed risk reduction strategies including drinking below the recommended limit. Provided pt with written resources including information on inpatient and outpatient treatment, SUSU, harm reduction, and recovery coaching. Pt plans to review resources and reach out if needed. Pt provided with t/w contact information if questions or concerns arise. Denies other questions or concerns at this time.?
--- NOTE | 2024-12-10 14:46 | MHC.RECOVRN ---
AUDIT-C Brief Intervention Pt had positive screen for unhealthy alcohol use on admission, subsequently met with t/w to discuss alcohol use and recovery supports/options. This sign writer hand met with patient to discuss current alcohol use and concerns related to increased risk of alcohol related problems.? Pt reports 1 pint alcohol daily, states I'll drink anything. Pt did not discuss nor identify how alcohol use has impacted health. Withdrawal History: reports hx of seizure Treatment History: ATS x 3 Supports:?mom Discussed risk reduction strategies including drinking below the recommended limit. Provided pt with written resources including information on inpatient and outpatient treatment, SUSU, harm reduction, and recovery coaching. Pt plans to review resources and reach out if needed. Pt provided with t/w contact information if questions or concerns arise. Denies other questions or concerns at this time.
--- NOTE | 2024-12-10 15:28 | PC.NURSE ---
Patient is of sounds mind and able to make his own decisions. He is leaving AMA. MD notified. Explained the risks and benefits of leaving the hospital and currently illness. Pt states understanding and does not want to stay at [facility] and signed himself out AMA.
--- NOTE | 2024-12-10 16:05 | P.DS_ITS ---
DS: Providers Provider Date of Service: 12/10/24 Date of admission: 12/08/24 19:03 Date of discharge: 12/10/24 Primary care physician: Jamil Navarro MD Attending physician on admission: Otilio Siddiqui Consults: 12/08/24 19:03 Consult to Hospitalist Routine Comment: Consulting Provider: [facility] [facility] Reason For Exam: ETOH abuse, asthma, bipolar d/o 12/09/24 12:31 Addiction Medicine Routine Consulting Provider: Addiction Covering Reason for consultation: ETOH 12/09/24 15:48 Addiction Medicine Routine Consulting Provider: Addiction Covering Reason for consultation: ETOH Attending physician on discharge: Otilio Siddiqui DS: Diagnosis Discharge Diagnosis (1) Acute appendicitis: Status: Acute DS: Summary Hospital Course Hospital Course: HPI AT ADMISSION: Frankie Guillaume is a 24 year old male here in the ER because of abdominal pain. He actually describes this mostly on the epigastric area and on the right side. He says that this may have started 3 days ago He says he is homeless and has other multiple issues so he decided to come to the ED today. He had does have a history of bipolar disorder and asthma. He has a known heavy drinker of alcohol. He says that he has not had any alcohol today. He denies IV drug abuse. He says he takes marijuana once in a while. He denies any fever or chills. Review of his records show that he had seen in the ER here for alcohol intoxication twice the past 6 weeks. He was actually here alcohol intoxication [address] scan abd pelvis showed appencideal thickening along with some barbara appendiceal stranding. HOSPITAL COURSE: He was admitted to the surgical service for further treatment of the acute appendicitis. Treatment options were reviewed with the patient and he elected to proceed with appendectomy. He was added onto the OR schedule for the following day. He was started on IV zosyn, IVF. Hospitalist consult was obtained for his ETOH abuse. He reports he was told he had a difficult airway on intubation after he lost his airway secondary to intoxication last year. 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 The following day he had continued abd pain and tenderness. He wanted to proceed. He was taken to the OR for the laparoscopic appendectomy however procedure was cancelled as anesthesia was unable to obtain stable airway due to his subglottic stenosis. Nonoperative measures were therefore continued. The following day he felt somewhat improved but remained tender in the RLQ/lower abd and it was recommended to cont IV abx for another day. His diet was advanced. He unfortunately left AMA later in the day on 12/10/24 and a course of PO abx were sent. Time Attestation Discharge Coordination Time (in mins): 35 Quality: Safe Use of Opioids Does Pt have an Active Cancer Diagnosis on the Problem List?: No Quality: Stroke Does the patient have a stroke diagnosis?: No Physical Exam Vital Signs: Vital Signs: Last Vital Signs Temp 98 F 12/10/24 07:37 Pulse 72 12/10/24 07:37 Resp 16 12/10/24 07:37 BP 128/77 12/10/24 07:37 Pulse Ox 97 12/10/24 07:37 O2 Del Method Room Air 12/10/24 07:37 O2 Flow Rate 8 12/09/24 12:35 BMI result Body Mass Index 30.3 GI: Palpation (GI): Soft to palpation and Tenderness to palpation present (GI) (RLQ/suprapubic) Discharge Plan Discharge Patient Disposition: Left Against Medical Advice Discharge Diagnosis: acute appendicitis Referrals: Jamil Navarro MD [Primary Care Provider] - 1 Week Discharge Medications: New amoxicillin-pot clavulanate 875-125 mg tablet 1 tab PO BID Qty: 20 0RF Continued buspirone 5 mg tablet 5 mg PO BID albuterol sulfate 2.5 mg /3 mL (0.083 %) solution for nebulization 2.5 mg inhalation Q6H PRN (Reason: wheezing) hydroxyzine HCl 50 mg tablet 50 mg PO Q6H PRN (Reason: itch) albuterol sulfate [Ventolin HFA] 90 mcg/actuation HFA aerosol inhaler 2 puff INHALATION Q4H PRN (Reason: Shortness Of Breath Or Wheezing) pantoprazole 40 mg tablet,delayed release (DR/EC) 40 mg PO DAILY@0630 Discharge Orders: Discharge Order (Routine); Ordered 12/11/24 Ordered By: Elidia Hercules Print Language: Trinidadian Care Plan Goals: resolution of abd pain Health Concerns: acute appendicitis Plan of Treatment: nonoperative with IV abx left AMA Assessment: left AMA Patient Instructions: Appendicitis (GEN) Discharge Date/Time: 12/10/24 15:34
== END 2024-12-10 15:34 | disposition left against medical advice (07) | DRG 254 ==
LOC: HO.ED 18:57 → HO.EDOVER 19:15 → HO.SSSA 12-09 12:44 → HO.S3 12-09 14:48
PROVIDERS: Admitting Provider Surgery; Emergency Provider Emergency Medicine Emergency Medical Services; PCP Internal Medicine; Visit Provider Surgery
PROC: 0DTJ4ZZ Resection of Appendix, Percutaneous Endoscopic Approach (ICD-10-PCS; CPT 44970; principal; 2024-12-09 11:00)
DX: K35.80 Unspecified acute appendicitis (principal); J38.6 Stenosis of larynx; J45.21 Mild intermittent asthma with (acute) exacerbation; F10.10 Alcohol abuse, uncomplicated; F17.210 Nicotine dependence, cigarettes, uncomplicated; Z59.02 Unsheltered homelessness; F31.9 Bipolar disorder, unspecified; Z20.822 Contact with and (suspected) exposure to COVID-19; Z71.6 Tobacco abuse counseling; Z79.899 Other long term (current) drug therapy; Z53.09 Procedure and treatment not carried out because of other contraindication
CPT/HCPCS: 0241U; 36415; 71046; 74177; 80048; 80076; 80307; 82947; 83690; 85025; 85027; 99285; J0330; J0696; J1100; J1596; J1836; J2003; J2060; J2250; J2405; J2470; J2543; J2560; J2704; J2795; J3010; J7120; Q9967; S9485

== ENCOUNTER → 2024-12-08 15:36 | Outpatient (BNV) | payer OTHER, SELFPAY | PROVIDERS: Emergency Provider Emergency Medicine Emergency Medical Services; PCP Internal Medicine; Visit Provider Radiology Diagnostic Radiology | DX: R10.13 Epigastric pain (principal); R05.9 Cough, unspecified | CPT/HCPCS: 71046; 74177 ==

== ENCOUNTER → 2024-12-08 19:03 | Outpatient (BNV) | payer OTHER, SELFPAY | PROVIDERS: Admitting Provider Surgery; Emergency Provider Emergency Medicine Emergency Medical Services; PCP Internal Medicine; Visit Provider Physician Assistant | DX: F10.10 Alcohol abuse, uncomplicated (principal); K37 Unspecified appendicitis | CPT/HCPCS: 99232 ==

== ENCOUNTER → 2024-12-08 19:03 | Outpatient (BNV) | payer OTHER, SELFPAY | PROVIDERS: Admitting Provider Surgery; Emergency Provider Emergency Medicine Emergency Medical Services; PCP Internal Medicine; Visit Provider Surgery | DX: K35.80 Unspecified acute appendicitis (principal) | CPT/HCPCS: 99222; 99499 ==

== ENCOUNTER 2024-12-12 05:51 | Emergency (ER) | payer OTHER, SELFPAY ==
[2024-12-12 06:04] VITALS: BP 150/92; PULSE 101; O2SAT 100
[2024-12-12 06:33] VITALS: BP 102/67; PULSE 71; RESP 20; TEMP 36.6; O2SAT 98; BMI 33.1
--- NOTE | 2024-12-12 06:40 | PC.NURSE ---
pt drowzy, responding to touch and goes back to sleep.
--- NOTE | 2024-12-12 06:51 | MHC.EDTECH ---
pt [facility]
[2024-12-12 09:26] LABS: MANUAL DIFF FLAG NO
[2024-12-12 09:30] LABS: Basophils Percent Auto 0.4 % (0-2); Eosinophils Percent Auto 0.2 % (0-4); Hematocrit 34.3 % (42.0-52.0); Hemoglobin 11.2 g/dl (14.0-18.0); Imm Gran Abs Auto 0.02 X10*3/uL (0.00-0.03); Imm Gran Pct Auto 0.4 % (0.0-0.4); Lymphocytes Absolute Auto 2.1 X10*3/uL (1.2-4.9); Mean Corpuscular HGB Conc 32.7 g/dl (31.0-36.0); Mean Corpuscular Hemoglobin 31.2 pg (27.0-33.0); Mean Corpuscular Volume 95.5 fL (80.0-98.0); Mean Platelet Volume 9.5 fL (9.4-12.4); Monocytes Absolute Auto 0.4 X10*3/uL (0.1-1.2); Monocytes Percent Auto 8.1 % (2-11); Neutrophils Absolute Auto 2.2 x10*3/uL (2.0-8.3); Neutrophils Percent Auto 45.9 % (45-73); Platelet Count 292 X10*3/uL (160-400); Red Blood Count 3.59 X10*6/uL (4.60-5.80); Red Cell Distribution Width 14.2 % (11.0-16.0); White Blood Count 4.7 X10*3/uL (4.8-10.8)
[2024-12-12 09:51] LABS: Alanine Aminotransferase 14 U/L (0-40); Albumin Level 3.6 g/dL (3.5-5.0); Alkaline Phosphatase 97 U/L (39-117); Anion Gap 10 (12-20); Aspartate Amino Transferase 36 U/L (5-37); Bilirubin Total 0.1 mg/dL (0.0-1.0); Blood Urea Nitrogen 7 mg/dL (9-16); Calcium 8.5 mg/dL (8.4-10.2); Carbon Dioxide 26 mmol/L (22-29); Chloride 112 mmol/L (96-108); Creatinine Clr Calc Pharmacy 165.9; Estimated Glomerular Filt Rate > 60; Glucose Random 77 mg/dL (60-115); Potassium 4.1 mmol/L (3.3-5.1); Sodium 144 mmol/L (135-145); Total Protein 6.7 g/dL (6.5-8.0)
--- NOTE | 2024-12-12 09:54 | PC.NURSE ---
Pt taken to restroom in w/c. pt verbally abusive to staff, stated punk ass taiwoch when nurse approached him
[2024-12-12 09:56] LABS: Ethanol 148 mg/dL
--- NOTE | 2024-12-12 10:08 | ED.GENADULT ---
HPI - General Adult General Chief complaint: Abdominal Pain Stated complaint: ab, foot & appendix pain acting ETOH Time Seen by Provider: 12/12/24 07:29 Source: patient Mode of arrival: ambulatory History of Present Illness ED Provider: Liz [facility] narrative: 24-year-old male who was diagnosed with acute appendicitis, on airway assessment by anesthesia he was determined to have an inaccessible airway and so decision made to treat with antibiotics, history obtained from another provider states that patient became very aggressive/verbally assaultive and signed out against medical advice yesterday. He now presents with complaints of abdominal discomfort, foot pain and endorses that he does use alcohol. Related Data Home Medications ?Medication ?Instructions ?Recorded ?Confirmed albuterol sulfate 2.5 mg/3 mL 2.5 mg inhalation Q6H PRN wheezing 10/20/24 12/09/24 (0.083 %) solution for nebulization albuterol sulfate 90 mcg/actuation 2 puff inhalation Q4H PRN 10/20/24 12/09/24 aerosol inhaler (Ventolin HFA) Shortness Of Breath Or Wheezing buspirone 5 mg tablet 5 mg PO BID 10/20/24 12/09/24 hydroxyzine HCl 50 mg tablet 50 mg PO Q6H PRN itch 10/20/24 12/09/24 pantoprazole 40 mg tablet,delayed 40 mg PO DAILY@0630 10/20/24 12/09/24 release Previous Rx's ?Medication ?Instructions ?Recorded amoxicillin 875 mg-potassium 1 tab PO BID 7 days #14 tabs 12/12/24 clavulanate 125 mg tablet Allergies Allergy/AdvReac Type Severity Reaction Status Date / Time naproxen [From Naprosyn] Allergy Mild Vomiting Verified 12/12/24 06:35 Review of Systems Review of Systems: Pertinent positives and negatives as stated in HPI [facility] Past Medical History Source: nursing notes reviewed Medical History Airway stricture Acquired subglottic stenosis Alcohol abuse Mild intermittent asthma Peripheral neuropathy Bipolar 1 disorder Hypertension Surgical History History of bronchoscopy History of esophagogastroduodenoscopy (EGD) Family History Family History Mother Hypertension Father Hypertension Social History Social History Household Members: None Housing: Homeless Are you a primary critical care cns to a significant other at home: No Do you presently have visiting nurse or other home services: No Unable to assess alcohol history related to: Unknown Alcohol intake: current Alcohol intake frequency: 3 or more drinks per day Alcohol type: hard liquor Comment: pt refused bed alarm Patient Tobacco Use Status: Current everyday Tobacco user Tobacco use type: Cigarette Cigarettes Per Day: 10 Years Smoked: 6 Smoked in Last 30 Days: Yes Second Hand Smoke Exposure: Yes Use of substances other than those prescribed or required for medical reasons: Unknown Substance Use Type: Marijuana Advance Directives: No Advance Directives Information Provided: Yes service: No Physical Exam ED Vital Signs: Vital Signs - 24 hr 12/12/24 06:33 12/12/24 10:21 Temperature 97.8 F Pulse Rate 71 84 Respiratory Rate 20 16 Blood Pressure 102/67 124/64 Pulse Oximetry 98 100 Oxygen Delivery Method Room Air Room Air BMI result Body Mass Index 33.1 VITAL SIGNS: Reviewed. GENERAL: Well developed, well nourished, in no acute distress. HEAD: Normocephalic/atraumatic EYES: PERRLA, EOMI EARS: Ext canals without abnormality NOSE: Nares patent bilateral OROPHARYNX: no oral lesions noted, posterior pharynx clear NECK: Supple, no adenopathy LUNGS: Normal breath sounds. No adventitious sounds or accessory muscle use. SpO2<98> CARDIOVASCULAR: Regular rate and rhythm without noted murmurs ABDOMEN: Soft, experiencing abdominal pain without rebound, non-distended with bowel sounds. MUSCULOSKELETAL: No tenderness, deformities, or effusions noted on gross inspection. EXTREMITIES: No cyanosis, clubbing or edema. SKIN: Inspection of the skin reveals no rashes NEUROLOGIC: Sleeping but easily aroused and oriented x 4. Strength and sensation to light touch were grossly intact x 4. Medications Administered Discontinued Medications Generic Name Dose Route Start Last Admin Trade Name Freq PRN Reason Stop Dose Admin Acetaminophen 650 mg 12/12/24 10:47 12/12/24 10:49 Acetaminophen 325 Mg Tablet PO 12/12/24 10:48 650 mg ONCE ONE Administration Amoxicillin/Clavulanate Potassium 875 mg 12/12/24 10:26 01/16/25 10:36 Amoxicillin/Potassium Clav 875 Mg Tablet PO 12/12/24 10:27 875 mg ONCE ONE Administration Medical Decision Making Medical Decision Making [facility] Narrative: 24-year-old male with history and clinical presentation, DD DX: Patient apparently signed out against medical advice yesterday, I asked if he took any antibiotics since leaving he denies, he states that he was not informed of having any antibiotic prescription sent to his pharmacy, on my quick review of documentation I see no documentation of the signing out of against medical advice, I see no prescription for antibiotics but this could be due to the limitation my review. I reviewed and interpreted all investigations and there is a noted leukopenia with chronically stable anemia no thrombocytopenia. There is no demonstrate FITO/electrolyte or liver enzyme derangements. Urine toxicology is positive for barbiturates but patient was receiving this for alcohol withdrawal on recent admission. BAL-148. 1015: Informed by nursing that he has continued with his verbally assaultive behaviors. I have discussed with him that he will be given antibiotics but if he continues with this behavior he will be discharged. I already discussed this case with Dr. Siddiqui, who states that the current treatment plan for this gentleman is antibiotics for the intra-abdominal infection. Surgeon continues recommendation of treatment with antibiotics. Patient ambulates with a steady gait, he was provided with initial antibiotics here in the emergency room, Dr. Siddiqui agrees with plan for treatment with Augmentin, patient endorses that he has a court appointment tomorrow morning. He is very belligerent and being rude to staff so he has been asked to leave. Patient is not interested in admission. Differential Diagnosis Differential Diagnoses: The differential diagnosis associated with the presentation includes See above Admission/Observation Consideration of admission/observation: Escalation of care including admission/observation considered See above Lab Data [facility] Lab Attestation statement: I reviewed the patient's lab results. See above 12/12/24 09:22 12/12/24 09:22 Labs: Lab Results 12/12/24 12/12/24 Range/Units 09:22 09:51 WBC 4.7 L (4.8-10.8) X10*3/uL RBC 3.59 L (4.60-5.80) X10*6/uL Hgb 11.2 L (14.0-18.0) g/dl Hct 34.3 L (42.0-52.0) % MCV 95.5 (80.0-98.0) fL MCH 31.2 (27.0-33.0) pg MCHC 32.7 (31.0-36.0) g/dl RDW 14.2 (11.0-16.0) % Plt Count 292 (160-400) X10*3/uL MPV 9.5 (9.4-12.4) fL Immature Gran % (Auto) 0.4 (0.0-0.4) % Neut % (Auto) 45.9 (45-73) % Lymph % (Auto) 45.0 H (20-40) % Saunders % (Auto) 8.1 (2-11) % Eos % (Auto) 0.2 (0-4) % Baso % (Auto) 0.4 (0-2) % Lymph # (Auto) 2.1 (1.2-4.9) X10*3/uL Saunders # (Auto) 0.4 (0.1-1.2) X10*3/uL Eos # (Auto) 0.0 (0.0-0.4) X10*3/uL Baso # (Auto) 0.0 (0.0-0.2) X10*3/uL Abs Immat Gran (auto) 0.02 (0.00-0.03) X10*3/uL Absolute Neuts (auto) 2.2 (2.0-8.3) x10*3/uL Absolute Nucleated RBC 0.000 (0.0-0.012) X10*3/uL Nucleated RBC % (auto) 0.0 (0.0-0.2) /100WBC Sodium 144 (135-145) mmol/L Potassium 4.1 (3.3-5.1) mmol/L Chloride 112 H (96-108) mmol/L Carbon Dioxide 26 (22-29) mmol/L Anion Gap 10 L (12-20) BUN 7 L (9-16) mg/dL Creatinine 0.72 (0.5-1.4) mg/dL Estim Creat Clear Calc 165.9 Estimated GFR > 60 Random Glucose 77 (60-115) mg/dL Calcium 8.5 (8.4-10.2) mg/dL Total Bilirubin 0.1 (0.0-1.0) mg/dL AST 36 (5-37) U/L ALT 14 (0-40) U/L Alkaline Phosphatase 97 (39-117) U/L Total Protein 6.7 (6.5-8.0) g/dL Albumin 3.6 (3.5-5.0) g/dL Urine Opiates Screen Not Detected (Not Detect) Ur Buprenorphine Scrn Not Detected (Not Detect) ng/mL Ur Oxycodone Screen Not Detected (Not Detect) ng/mL Urine Methadone Screen Not Detected (Not Detect) ng/mL Urine Fentanyl Screen Not Detected (Not Detect) Ur Barbiturates Screen POSITIVE H (Not Detect) Ur Phencyclidine Scrn Not Detected (Not Detect) Ur Amphetamines Screen Not Detected (Not Detect) U Benzodiazepines Scrn Not Detected (Not Detect) Urine Cocaine Screen Not Detected (Not Detect) U Marijuana (THC) Screen Not Detected (Not Detect) Ethyl Alcohol 148 mg/dL External Record Review External record reviewed: Inpatient record, Prior outpatient labs and Prior outpatient radiology Social Determinants Patient?s care significantly limited by Social Determinants of Health including: Alcoholism and drug addiction in family Discharge Plan Discharge Clinical Impression: Appendicitis, Aggressive behavior Patient Disposition: Home, Self-Care Instructions: Abdominal Pain (ED) Additional Instructions: Resume all home medications as prescribed. Complete the entire course of antibiotics as prescribed. You should keep all appointments with the court as scheduled, do not hesitate to return to the emergency room immediately should you experience any severe worsening of your condition with the understanding that you would require admission. Prescriptions: New amoxicillin-pot clavulanate 875-125 mg tablet 1 tab PO BID 7 Days Qty: 14 0RF No Action buspirone 5 mg tablet 5 mg PO BID albuterol sulfate 2.5 mg /3 mL (0.083 %) solution for nebulization 2.5 mg inhalation Q6H PRN (Reason: wheezing) hydroxyzine HCl 50 mg tablet 50 mg PO Q6H PRN (Reason: itch) albuterol sulfate [Ventolin HFA] 90 mcg/actuation HFA aerosol inhaler 2 puff INHALATION Q4H PRN (Reason: Shortness Of Breath Or Wheezing) pantoprazole 40 mg tablet,delayed release (DR/EC) 40 mg PO DAILY@0630 Referrals: Otilio Siddiqui MD [Physician] - Print Language: Malay
[2024-12-12 10:16] LABS: Amphetamine Screen Urine Not Detected (Not Detect); Barbiturates, Urine POSITIVE (Not Detect); Benzodiazepines Screen Urine Not Detected (Not Detect); Buprenorphine Scr Not Detected (Not Detect); Cannabinoid Screen Urine Not Detected (Not Detect); Cocaine Screen Urine Not Detected (Not Detect); Fentanyl, urine Not Detected (Not Detect); Methadone Screen, Urine Not Detected (Not Detect); Opiate Screen Urine Not Detected (Not Detect); Oxycodone Screen Urine Not Detected (Not Detect); Phencyclidine Screen Urine Not Detected (Not Detect)
[2024-12-12 10:21] VITALS: BP 124/64; PULSE 84; RESP 16; O2SAT 100
[2024-12-12] MEDS: Amoxicillin/Potassium Clav 875 MG TABLET PO (10:36)
[2024-12-12] MEDS: Acetaminophen 325 MG TABLET 650 MG PO (10:49)
== END 2024-12-12 12:43 | disposition home or self-care (01) ==
PROVIDERS: Emergency Provider Student in an Organized Health Care Education/Training Program
DX: K37 Unspecified appendicitis (principal); R10.2 Pelvic and perineal pain; R45.6 Violent behavior; Z51.81 Encounter for therapeutic drug level monitoring; Z79.899 Other long term (current) drug therapy
CPT/HCPCS: 36415; 80053; 80307; 85025; 99284

== ENCOUNTER 2024-12-29 05:40 | Emergency (ER) | payer OTHER, SELFPAY ==
--- NOTE | ~2024-12-29 | XR_ITS ---
CLINICAL HISTORY: cough sob 2 view chest x-ray Comparison: CR - XR CHEST 2V - 12/08/24 21:20 EST Findings: No consolidation or effusion. Heart size is normal. No acute fracture. IMPRESSION: 1. No acute findings. This document has been electronically signed by: Stephanie Smith MD on 12/29/2024 08:15:18
[2024-12-29 05:45] VITALS: BP 142/82; BP 186/102; PULSE 107; PULSE 85; RESP 20; TEMP 36.8; O2SAT 94; O2SAT 95; BMI 25.8
[2024-12-29 06:01] VITALS: BP 142/82; PULSE 85; RESP 20; TEMP 36.8; O2SAT 94
[2024-12-29] MEDS: Ondansetron ODT 4 MG TAB.RAPDIS TRANSLINGU (06:10)
--- NOTE | 2024-12-29 06:29 | PC.NURSE ---
patient refusing to have any lab work drawn at this time.
[2024-12-29] MEDS: Acetaminophen 325 MG TABLET 975 MG PO (07:34)
[2024-12-29 07:35] LABS: MANUAL DIFF FLAG NO
--- NOTE | 2024-12-29 07:45 | PC.NURSE ---
pt agreeable to having lab work obtained at this time. lab work obtained/sent to lab. pt refusing to provide a urine sample. pt to xray at this time.
[2024-12-29 07:49] LABS: Alanine Aminotransferase 38 U/L (0-40); Alanine Aminotransferase 39 U/L (0-40); Albumin Level 4.3 g/dL (3.5-5.0); Alkaline Phosphatase 75 U/L (39-117); Alkaline Phosphatase 76 U/L (39-117); Anion Gap 16 (12-20); Aspartate Amino Transferase 50 U/L (5-37); Aspartate Amino Transferase 51 U/L (5-37); Bilirubin Direct < 0.2 mg/dL (0.0-0.5); Bilirubin Total 0.1 mg/dL (0.0-1.0); Blood Urea Nitrogen 12 mg/dL (9-16); Carbon Dioxide 25 mmol/L (22-29); Chloride 106 mmol/L (96-108); Creatinine Clr Calc Pharmacy 175.5; Estimated Glomerular Filt Rate > 60; Ethanol 10 mg/dL; Glucose Random 89 mg/dL (60-115); Lipase 19 U/L (8-78); Magnesium 2.1 mg/dL (1.6-2.6); Potassium 4.4 mmol/L (3.3-5.1); Sodium 143 mmol/L (135-145); Total Protein 7.8 g/dL (6.5-8.0); Total Protein 7.9 g/dL (6.5-8.0)
[2024-12-29 07:52] LABS: Basophils Percent Auto 0.3 % (0-2); Hematocrit 37.2 % (42.0-52.0); Hemoglobin 12.6 g/dl (14.0-18.0); Lymphocytes Absolute Auto 1.1 X10*3/uL (1.2-4.9); Lymphocytes Percent Auto 30.9 % (20-40); Mean Corpuscular HGB Conc 33.9 g/dl (31.0-36.0); Mean Corpuscular Hemoglobin 31.2 pg (27.0-33.0); Mean Corpuscular Volume 92.1 fL (80.0-98.0); Mean Platelet Volume 9.7 fL (9.4-12.4); Monocytes Absolute Auto 0.3 X10*3/uL (0.1-1.2); Monocytes Percent Auto 8.7 % (2-11); Neutrophils Absolute Auto 2.1 x10*3/uL (2.0-8.3); Neutrophils Percent Auto 60.1 % (45-73); Platelet Count 360 X10*3/uL (160-400); Red Blood Count 4.04 X10*6/uL (4.60-5.80); Red Cell Distribution Width 13.6 % (11.0-16.0); White Blood Count 3.4 X10*3/uL (4.8-10.8)
[2024-12-29 08:12] LABS: Influenza A PCR POSITIVE (Negative); Influenza B PCR NEGATIVE (Negative); Resp Syncy Virus RNA Qual PCR NEGATIVE (Negative); SARS COV2 PCR INHOUSE NEGATIVE (Negative)
--- NOTE | 2024-12-29 08:30 | ED.NAVMDI ---
HPI - Nausea/Vomiting/Diarrhea General Chief complaint: Nausea/Vomiting/Diarrhea Stated complaint: NAUSEA/VOMITTING Time Seen by Provider: 12/29/24 08:19 Source: patient and EMS Mode of arrival: EMS Limitations: no limitations History of Present Illness ED Provider: DR. Paredes HPI Narrative: 24-year-old male who is currently homeless was seen at [facility] yesterday and was told that he has the flu. Patient came in for evaluation of generalized body ache, coughing, runny nose, congestion, nausea, vomiting, nonbloody watery diarrhea x1 day. S/p appendectomy on 12/09/2024 with uneventful postoperative events. Patient declined history IV drug use and alcohol use. Related Data Home Medications ?Medication ?Instructions ?Recorded ?Confirmed albuterol sulfate 2.5 mg/3 mL 2.5 mg inhalation Q6H PRN wheezing 10/20/24 12/09/24 (0.083 %) solution for nebulization albuterol sulfate 90 mcg/actuation 2 puff inhalation Q4H PRN 10/20/24 12/09/24 aerosol inhaler (Ventolin HFA) Shortness Of Breath Or Wheezing buspirone 5 mg tablet 5 mg PO BID 10/20/24 12/09/24 hydroxyzine HCl 50 mg tablet 50 mg PO Q6H PRN itch 10/20/24 12/09/24 pantoprazole 40 mg tablet,delayed 40 mg PO DAILY@0630 10/20/24 12/09/24 release Previous Rx's ?Medication ?Instructions ?Recorded amoxicillin 875 mg-potassium 1 tab PO BID 7 days #14 tabs 12/12/24 clavulanate 125 mg tablet Allergies Allergy/AdvReac Type Severity Reaction Status Date / Time naproxen [From Naprosyn] Allergy Mild Vomiting Verified 12/29/24 05:59 Review of Systems Review of Systems: All other systems are reviewed and are negative Constitutional: Reports as per HPI and Reports no additional constitutional complaints Eyes: Reports as per HPI and Reports no additional eye complaints Reports system reviewed and no additional complaints, except as documented Cardiovascular: Reports as per HPI and Reports no additional cardiovascular complaints Respiratory: Reports as per HPI and Reports no additional respiratory complaints Gastrointestinal: Reports as per HPI and Reports no additional gastrointestinal complaints Genitourinary: Reports no additional female genitourinary complaints Musculoskeletal: Reports no additional musculoskeletal complaints Skin/Breast: Reports system reviewed and no additional complaints, except as docu Psychiatric: Reports no additional psychiatric complaints Endocrine: Reports no additional endocrine complaints Hematologic/Lymphatic: Reports no additional hematologic/lymphatic complaints Allergic/Immunologic: Reports no additional allergic/immunologic complaints Reports system reviewed and no additional complaints, except as documented and Reports Abnormal speech present [facility] Past Medical History Medical History Airway stricture Acquired subglottic stenosis Alcohol abuse Mild intermittent asthma Peripheral neuropathy Bipolar 1 disorder Hypertension Surgical History History of bronchoscopy History of esophagogastroduodenoscopy (EGD) Family History Family History Mother Hypertension Father Hypertension Social History Social History Household Members: None Housing: Homeless Are you a primary care support representative to a significant other at home: No Do you presently have visiting nurse or other home services: No Unable to assess alcohol history related to: Unknown Alcohol intake: current Alcohol intake frequency: 3 or more drinks per day Alcohol type: hard liquor Comment: pt refused bed alarm Patient Tobacco Use Status: Current everyday Tobacco user Tobacco use type: Cigarette Cigarettes Per Day: 10 Years Smoked: 6 Smoked in Last 30 Days: Yes Second Hand Smoke Exposure: Yes Substance Use Type: Crack/Cocaine Substance Use Frequency: Chronic Longstanding Advance Directives: No Do you have a plan to hurt others: No Plan service: No Physical Exam Vital Signs: Vital Signs: Last Vital Signs Temp 98.3 F 12/29/24 06:01 Pulse 85 12/29/24 06:01 Resp 20 12/29/24 06:01 BP 142/82 H 12/29/24 06:01 Pulse Ox 94 12/29/24 06:01 O2 Del Method Room Air 12/29/24 06:01 BMI result Body Mass Index 25.8 Vital signs have been reviewed and appear to be correct. Blood pressure elevated. Heart rate normal. Respiratory rate normal. Temperature normal. Oxygen saturation normal. Appearance: Alert. Oriented X3. No acute distress. Head: Normal external exam. Normocephalic. Atraumatic. No Salomon signs noted. No raccoon eyes noted Eyes: PERRLA. EOMI. Conjunctiva and sclera normal. Eyelids normal. ENT: TM's Normal. Pharynx normal. Uvula midline. Moist mucous membranes. No trismus noted. No drooling noted. No muffled voice noted. Neck: Normal inspection. Neck supple. FROM. No adenopathy. Thyroid Normal. No meningeal signs. No neck mass noted. CVS: Normal heart rate and rhythm. Heart sound normal. No murmurs noted. Pulses normal throughout. Respiratory: No respiratory distress. Painless inspiration. Breath sounds normal. No wheezes/rales/rhonchi noted. Chest nontender. No accessory muscle usage noted or decreased air movement noted. Abdomen: Soft and nontender. Bowel sounds normal in all 4 quadrants. No distention noted. No organomegaly noted. No visible injury noted. Back: No CVA tenderness. Full range of motion noted. Skin: Skin warm and dry. Normal skin color. Normal skin turgor. No rashes/lesions/lacerations noted. Extremities: No lower extremity edema. Extremities exhibit normal range of motion. Extremities nontender. Neuro: Oriented X 3. Cranial nerve exam: II-XII are grossly intact No motor deficit. No sensory deficit. Reflexes normal. Course Reevaluation(s) Reevaluation #1: Influenza a positive, homeless, +nausea, +vomiting + diarrhea. Labs are unremarkable, received IV fluids. feels better, able to tolerate p.o. intake. Time: 11:00 Medications Administered Discontinued Medications Generic Name Dose Route Start Last Admin Trade Name Freq PRN Reason Stop Dose Admin Acetaminophen 975 mg 12/29/24 07:32 12/29/24 07:34 Acetaminophen 325 Mg Tablet PO 12/29/24 07:33 975 mg ONCE ONE Administration Ondansetron HCl 4 mg 12/29/24 06:06 12/29/24 06:10 Ondansetron Odt 4 Mg Tab.Rapdis TRANSLINGU 12/29/24 06:07 4 mg ONCE ONE Administration Medical Decision Making Differential Diagnosis Differential Diagnoses: The differential diagnosis associated with the presentation includes ( Gastroenteritis, food poisoning, influenza a, RSV, COVID-19 infection, dehydration, electrolyte derangement, severe anemia.) Admission/Observation Consideration of admission/observation: Escalation of care including admission/observation considered Lab Data MDM Lab Attestation statement: I reviewed the patient's lab results. 12/29/24 07:30 12/29/24 07:30 Labs: Lab Results 12/29/24 12/29/24 12/29/24 Range/Units 07:30 07:30 07:30 WBC 3.4 L (4.8-10.8) X10*3/uL RBC 4.04 L (4.60-5.80) X10*6/uL Hgb 12.6 L (14.0-18.0) g/dl Hct 37.2 L (42.0-52.0) % MCV 92.1 (80.0-98.0) fL MCH 31.2 (27.0-33.0) pg MCHC 33.9 (31.0-36.0) g/dl RDW 13.6 (11.0-16.0) % Plt Count 360 (160-400) X10*3/uL MPV 9.7 (9.4-12.4) fL Immature Gran % (Auto) 0.0 (0.0-0.4) % Neut % (Auto) 60.1 (45-73) % Lymph % (Auto) 30.9 (20-40) % [place] % (Auto) 8.7 (2-11) % Eos % (Auto) 0.0 (0-4) % Baso % (Auto) 0.3 (0-2) % Lymph # (Auto) 1.1 L (1.2-4.9) X10*3/uL [place] # (Auto) 0.3 (0.1-1.2) X10*3/uL Eos # (Auto) 0.0 (0.0-0.4) X10*3/uL Baso # (Auto) 0.0 (0.0-0.2) X10*3/uL Abs Immat Gran (auto) 0.00 (0.00-0.03) X10*3/uL Absolute Neuts (auto) 2.1 (2.0-8.3) x10*3/uL Absolute Nucleated RBC 0.000 (0.0-0.012) X10*3/uL Nucleated RBC % (auto) 0.0 (0.0-0.2) /100WBC Sodium 143 (135-145) mmol/L Potassium 4.4 (3.3-5.1) mmol/L Chloride 106 (96-108) mmol/L Carbon Dioxide 25 (22-29) mmol/L Anion Gap 16 (12-20) BUN 12 (9-16) mg/dL Creatinine 0.70 (0.5-1.4) mg/dL Estim Creat Clear Calc 175.5 Estimated GFR > 60 Random Glucose 89 (60-115) mg/dL Calcium 9.0 (8.4-10.2) mg/dL Magnesium 2.1 (1.6-2.6) mg/dL Total Bilirubin 0.1 0.1 (0.0-1.0) mg/dL Direct Bilirubin < 0.2 (0.0-0.5) mg/dL AST 50 H 51 H (5-37) U/L ALT 39 (0-40) U/L Alkaline Phosphatase (39-117) U/L Total Protein (6.5-8.0) g/dL Albumin (3.5-5.0) g/dL Lipase (8-78) U/L Ethyl Alcohol mg/dL Influenza Type A (PCR) (Negative) Influenza Type B (PCR) (Negative) RSV RNA Qual (PCR) (Negative) SARS-CoV-2 RNA (RT-PCR) (Negative) 12/29/24 12/29/24 12/29/24 Range/Units 07:30 07:30 07:30 WBC (4.8-10.8) X10*3/uL RBC (4.60-5.80) X10*6/uL Hgb (14.0-18.0) g/dl Hct (42.0-52.0) % MCV (80.0-98.0) fL MCH (27.0-33.0) pg MCHC (31.0-36.0) g/dl RDW (11.0-16.0) % Plt Count (160-400) X10*3/uL MPV (9.4-12.4) fL Immature Gran % (Auto) (0.0-0.4) % Neut % (Auto) (45-73) % Lymph % (Auto) (20-40) % [place] % (Auto) (2-11) % Eos % (Auto) (0-4) % Baso % (Auto) (0-2) % Lymph # (Auto) (1.2-4.9) X10*3/uL [place] # (Auto) (0.1-1.2) X10*3/uL Eos # (Auto) (0.0-0.4) X10*3/uL Baso # (Auto) (0.0-0.2) X10*3/uL Abs Immat Gran (auto) (0.00-0.03) X10*3/uL Absolute Neuts (auto) (2.0-8.3) x10*3/uL Absolute Nucleated RBC (0.0-0.012) X10*3/uL Nucleated RBC % (auto) (0.0-0.2) /100WBC Sodium (135-145) mmol/L Potassium (3.3-5.1) mmol/L Chloride (96-108) mmol/L Carbon Dioxide (22-29) mmol/L Anion Gap (12-20) BUN (9-16) mg/dL Creatinine (0.5-1.4) mg/dL Estim Creat Clear Calc Estimated GFR Random Glucose (60-115) mg/dL Calcium (8.4-10.2) mg/dL Magnesium (1.6-2.6) mg/dL Total Bilirubin (0.0-1.0) mg/dL Direct Bilirubin (0.0-0.5) mg/dL AST (5-37) U/L ALT 38 (0-40) U/L Alkaline Phosphatase 75 76 (39-117) U/L Total Protein 7.8 7.9 (6.5-8.0) g/dL Albumin 4.3 (3.5-5.0) g/dL Lipase (8-78) U/L Ethyl Alcohol mg/dL Influenza Type A (PCR) (Negative) Influenza Type B (PCR) (Negative) RSV RNA Qual (PCR) (Negative) SARS-CoV-2 RNA (RT-PCR) (Negative) 12/29/24 Range/Units 07:30 WBC (4.8-10.8) X10*3/uL RBC (4.60-5.80) X10*6/uL Hgb (14.0-18.0) g/dl Hct (42.0-52.0) % MCV (80.0-98.0) fL MCH (27.0-33.0) pg MCHC (31.0-36.0) g/dl RDW (11.0-16.0) % Plt Count (160-400) X10*3/uL MPV (9.4-12.4) fL Immature Gran % (Auto) (0.0-0.4) % Neut % (Auto) (45-73) % Lymph % (Auto) (20-40) % [place] % (Auto) (2-11) % Eos % (Auto) (0-4) % Baso % (Auto) (0-2) % Lymph # (Auto) (1.2-4.9) X10*3/uL [place] # (Auto) (0.1-1.2) X10*3/uL Eos # (Auto) (0.0-0.4) X10*3/uL Baso # (Auto) (0.0-0.2) X10*3/uL Abs Immat Gran (auto) (0.00-0.03) X10*3/uL Absolute Neuts (auto) (2.0-8.3) x10*3/uL Absolute Nucleated RBC (0.0-0.012) X10*3/uL Nucleated RBC % (auto) (0.0-0.2) /100WBC Sodium (135-145) mmol/L Potassium (3.3-5.1) mmol/L Chloride (96-108) mmol/L Carbon Dioxide (22-29) mmol/L Anion Gap (12-20) BUN (9-16) mg/dL Creatinine (0.5-1.4) mg/dL Estim Creat Clear Calc Estimated GFR Random Glucose (60-115) mg/dL Calcium (8.4-10.2) mg/dL Magnesium (1.6-2.6) mg/dL Total Bilirubin (0.0-1.0) mg/dL Direct Bilirubin (0.0-0.5) mg/dL AST (5-37) U/L ALT (0-40) U/L Alkaline Phosphatase (39-117) U/L Total Protein (6.5-8.0) g/dL Albumin 4.3 (3.5-5.0) g/dL Lipase 19 (8-78) U/L Ethyl Alcohol 10 mg/dL Influenza Type A (PCR) POSITIVE A (Negative) Influenza Type B (PCR) NEGATIVE (Negative) RSV RNA Qual (PCR) NEGATIVE (Negative) SARS-CoV-2 RNA (RT-PCR) NEGATIVE (Negative) Discharge Plan Discharge Clinical Impression: Influenza A, Gastroenteritis Patient Disposition: Still a Patient Instructions: Influenza (ED), Gastroenteritis (ED) Additional Instructions: drink plenty of fluids and keep yourself hydrated. Prescriptions: No Action buspirone 5 mg tablet 5 mg PO BID albuterol sulfate 2.5 mg /3 mL (0.083 %) solution for nebulization 2.5 mg inhalation Q6H PRN (Reason: wheezing) hydroxyzine HCl 50 mg tablet 50 mg PO Q6H PRN (Reason: itch) albuterol sulfate [Ventolin HFA] 90 mcg/actuation HFA aerosol inhaler 2 puff INHALATION Q4H PRN (Reason: Shortness Of Breath Or Wheezing) pantoprazole 40 mg tablet,delayed release (DR/EC) 40 mg PO DAILY@0630 amoxicillin-pot clavulanate 875-125 mg tablet 1 tab PO BID 7 Days Qty: 14 0RF Print Language: Hungarian
--- NOTE | 2024-12-29 09:00 | PC.NURSE ---
pt noted to test positive for Flu A. pt transitioned to ED1. precautions placed on the door.
[2024-12-29] MEDS: 0.9 % Sodium Chloride 1,000 ML 999 ML IV (09:13)
[2024-12-29] MEDS: Famotidine/PF 20 MG/2 ML VIAL IVPUSH (09:13)
[2024-12-29] MEDS: ondansetron HCL 4 MG/2 ML VIAL IVPUSH (09:13)
[2024-12-29] MEDS: Ketorolac Tromethamine 15 MG/ML VIAL IVPUSH (09:13)
--- NOTE | 2024-12-29 09:30 | PC.NURSE ---
18gIV placed in the right hand - IVF/medication administered per provider order. effectiveness pending.
[2024-12-29 10:00] VITALS: RESP 18
[2024-12-29 12:05] VITALS: RESP 18
--- NOTE | 2024-12-29 12:05 | PC.NURSE ---
pt still refusing vitals to be obtained at this time. upon entering the room, pt agreeable to having vitals taken and then became verbally aggressive towards this RN calling her a bitch and to leave him alone as this RN stated that she was taking the blanket off of his head so vitals can be obtained. pt remained agitated/aggressive. made aware.
[2024-12-29 12:49] VITALS: BP 0/0; PULSE 0; RESP 18; TEMP -17.7; TEMP 0; O2SAT 0
== END 2024-12-29 12:53 | disposition home or self-care (01) ==
PROVIDERS: Emergency Provider Emergency Medicine; PCP Internal Medicine
DX: J10.1 Influenza due to other identified influenza virus with other respiratory manifestations (principal); K52.9 Noninfective gastroenteritis and colitis, unspecified; R11.2 Nausea with vomiting, unspecified; M79.10 Myalgia, unspecified site; R06.02 Shortness of breath; R05.9 Cough, unspecified; F17.210 Nicotine dependence, cigarettes, uncomplicated; Z03.818 Encounter for observation for suspected exposure to other biological agents ruled out; Z79.899 Other long term (current) drug therapy; Z59.00 Homelessness unspecified; Z51.81 Encounter for therapeutic drug level monitoring
CPT/HCPCS: 0241U; 36415; 71046; 80053; 80076; 80307; 82248; 83690; 83735; 85025; 96361; 96374; 96375; 99285; J1885; J2405

== ENCOUNTER → 2024-12-29 07:55 | Outpatient (BNV) | payer OTHER, SELFPAY | PROVIDERS: Emergency Provider Emergency Medicine; PCP Internal Medicine; Visit Provider Radiology Diagnostic Radiology | DX: R05.9 Cough, unspecified (principal); R06.02 Shortness of breath | CPT/HCPCS: 71046 ==

== ENCOUNTER 2024-12-29 15:12 | Emergency (ER) | payer OTHER, SELFPAY ==
--- NOTE | 2024-12-29 | ECG_ITS ---
Test Reason : CHEST PAIN Blood Pressure : */* mmHG Vent. Rate : 66 BPM Atrial Rate : 66 BPM P-R Int : 170 ms QRS Dur : 98 ms QT Int : 386 ms P-R-T Axes : 45 56 29 degrees QTcB Int : 404 ms Sinus rhythm with marked sinus arrhythmia Otherwise normal ECG When compared with ECG of 20-Oct-2024 06:57, No significant change was found Referred By: Generic ED Physician Electronically Signed By: Isma Rock
[2024-12-29 15:22] VITALS: BP 149/94; BP 160/100; PULSE 64; PULSE 72; RESP 18; TEMP 36.9; O2SAT 97; BMI 33.3
--- OUTSIDE RECORDS SUMMARY | 2024-12-29 15:35 | XMS_ITS | Encounter Summary ---
Author Organization [facility] Address [address] [place] [address] Care Team Providers Care Installation And Service Technician Name Role Phone Arash Alvarez MD Primary Care Provider Reason for Visit * Reason Onset Date Comments PT-1 12/23/2024 Encounter Details Date Type Department Care Team (Late st Contact Info) Description 12/23/2024 Telephone Adult Medicine [facility] [address] [place] [address] Arash Alvarez MD [address] [place] [address] PT-1 Social History Tobacco Use Types Packs/Day Years Used Date Smoking Tobacco: Every Day Cigarettes Smokeless Tobacco: Never Alcohol Use Standard Drinks/Week Comments Yes 0 (1 standard drink = 0.6 oz pur e alcohol) Sex and Gender Information Value Date Recorded Sex Assigned at Male 11/17/2024 11:40 AM EST Gender Identity Male 11/17/2024 11:40 AM EST Sexual Orientation Straight 11/17/2024 11 :40 AM EST Job Start Date Occupation Industry Not on file Not on file Not on file documented as of this encounter Progress Notes * Katrina Houser LPN - 12/23/2024 11:26 AM EST PT 1 form submitted Tracking # [id number] Dr Alvarez 6 visit a year * Carlota Pollard - 12/23/2024 10:24 AM EST PT-1 Request Call [employer] new provider or submitter number is [id number] Verify and document patients [place] Health insurance ID # (NOT [facility] ID): [id number] Payor: [employer] PLAN / Plan: [employer] [facility] MEDICA[facility] / Product Type: *No Product type* / Patient mailing address: [address] [place] [address] [place] Pt. demographics verified? yes If not accurate, update registration. Is this a NEW request or a RENEWAL? New request Name of treating facility: [facility] Name (first & last) of treating provider? required : Arash Alvarez What is the medical reason why the patient is seeing the above provider? Follow up Address/Zip code for treating provider: [address] [place] [address] Phone # for treating provider: [phone] Is the provider in the [facility] network (do they accept [place] Health insurance)? yes What specialtly is this provider? Internal medicine When is the visit scheduled for? 12/31/24 How often you will be seeing this particular provider? Do you have friends or family who can transport you to this visit? no If yes, do not complete request. Is there anything stopping you from using public transportation? If yes, explain: no Is there a medical reason (diagnosis) why you are unable to use public transportation? If yes, explain: No Does patient carry self-administered oxygen? no Does patient require door through door or room to room service( ex: member cannot ambulate or wait independently outside their home/facility for transportation. no Is this is for an Adult Day Program or Suboxone clinic No If yes to above what is arrival time and what is departure time If yes to above how many days a week? Do you need a wheelchair van? no If you use a wheelchair what is the height, width & length of the wheelchair? Do you need an escort to accompany you? If yes, explain why. no Will you have an alternative pick-up address? no Do you have a service animal? no PT DOES NOT NEED RELEASE OF INFORMATION SIGNED documented in this encounter Plan of Treatment Upcoming Encounters Date Type Department Care Team (Late st Contact Info) Description 12/31/2024 11:15 AM EST Office Visit Adult Medicine [address] [phone] Arash Alvarez MD [address] [place] [address] documented as of this encounter Visit Diagnoses Not on filedocumented in this encounter Care Teams Installation And Service Technician Relationship Specialty Start Date End Date Arash Alvarez MD [address] [place] [address] PCP - General 06/12/24 documented as of this encounter
--- NOTE | 2024-12-29 16:47 | ED.FALL ---
HPI - Fall General Chief Complaint: Fall Stated Complaint: general pain, had fall, chest pain Time Seen by Provider: 12/29/24 15:57 Source: patient Mode of arrival: ambulatory Limitations: no limitations History of Present Illness ED Provider: Eren Metzger DO HPI Narrative: 24-year-old male with past medical history of neuropathy and chronic alcohol use at least 1 pt per day, GERD, asthma, and diagnosis of influenza a during evaluation in this emergency department earlier today presents to the ED after a slip on ice, falling onto the back of his head. Patient denies loss of consciousness. He states he was able to stand and ambulate since that time. He reports cramping pain located over the bilateral thighs which is at his baseline. He denies any other pain. He denies dizziness prior to the event. He denies any additional symptoms here. 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 Related Data Home Medications ?Medication ?Instructions ?Recorded ?Confirmed albuterol sulfate 2.5 mg/3 mL 2.5 mg inhalation Q6H PRN wheezing 10/20/24 12/09/24 (0.083 %) solution for nebulization albuterol sulfate 90 mcg/actuation 2 puff inhalation Q4H PRN 10/20/24 12/09/24 aerosol inhaler (Ventolin HFA) Shortness Of Breath Or Wheezing buspirone 5 mg tablet 5 mg PO BID 10/20/24 12/09/24 hydroxyzine HCl 50 mg tablet 50 mg PO Q6H PRN itch 10/20/24 12/09/24 pantoprazole 40 mg tablet,delayed 40 mg PO DAILY@0630 10/20/24 12/09/24 release Previous Rx's ?Medication ?Instructions ?Recorded amoxicillin 875 mg-potassium 1 tab PO BID 7 days #14 tabs 12/12/24 clavulanate 125 mg tablet Allergies Allergy/AdvReac Type Severity Reaction Status Date / Time naproxen [From Naprosyn] Allergy Mild Vomiting Verified 12/29/24 15:23 Review of Systems Review of Systems: Yes all other systems are reviewed and are negative PMFSH Past Medical History Medical History Airway stricture Acquired subglottic stenosis Alcohol abuse Mild intermittent asthma Peripheral neuropathy Bipolar 1 disorder Hypertension Surgical History History of bronchoscopy History of esophagogastroduodenoscopy (EGD) Family History Family History Mother Hypertension Father Hypertension Social History Social History Household Members: None Housing: Homeless Are you a primary technical healthcare consultant to a significant other at home: No Do you presently have visiting nurse or other home services: No Unable to assess alcohol history related to: Unknown Alcohol intake: current Alcohol intake frequency: 3 or more drinks per day Alcohol type: hard liquor Comment: pt refused bed alarm Patient Tobacco Use Status: Current everyday Tobacco user Tobacco use type: Cigarette Cigarettes Per Day: 10 Years Smoked: 6 Second Hand Smoke Exposure: Yes Substance Use Type: Crack/Cocaine Advance Directives: No Advance Directives Information Provided: Yes service: No Physical Exam Vital Signs: Vital Signs: Last Vital Signs Temp 98.4 F 12/29/24 15:22 Pulse 72 12/29/24 15:22 Resp 18 12/29/24 15:22 BP 149/94 H 12/29/24 15:22 Pulse Ox 97 12/29/24 15:22 O2 Del Method Room Air 12/29/24 15:22 BMI result Body Mass Index 33.3 Constitutional: ?Alert, oriented, speaking in full sentences HEENT: ?Normocephalic, atraumatic. ?No raccoon eyes, ramos sign or hemotympanum bilaterally. Moist mucous membranes Eyes: ?PERRL, EOMI Neck: ?Supple, nontender Chest: ?No chest wall tenderness Respiratory: ?Lungs clear to auscultation, no increased work of breathing Cardio: ?Regular rate and rhythm, no murmur, 2+ radial and DP pulses symmetrically GI: ?Soft, nondistended, nontender Back: ?Normal range of motion, nontender Skin: ?No rash, no lesions Neuro: ?Alert and oriented to person, place and time, moves all 4 extremities, no focal deficits, able to stand and ambulate without difficulty. Extremities: ?No swelling or tenderness, full range of motion Psych: ?Calm, alert and cooperative, appropriate behavior Medical Decision Making Medical Decision Making MDM Narrative: Patient presenting with a fall from standing position on ice. There are no features concerning for near-syncope or syncope. His ECG is unremarkable. He has no concerning exam findings and is young without anticoagulation. Therefore, CT imaging of the brain at this time is not warranted. He has had no vomiting episodes. He has no apparent injuries on exam and no neurologic deficits. He accepts offered ibuprofen and acetaminophen. Given his chronic neuropathy I also provided vitamin B12, magnesium and thiamine. The patient declines offered detox, stating that he needs to ?sort things out with his loved ones?. He voices understanding that he can return at any point in time. He is not exhibiting withdrawals at this time. Admission/Observation Consideration of admission/observation: Escalation of care including admission/observation considered Independent Interpretation I performed an independent interpretation of an: EKG Interpretation: Normal sinus rhythm at 66 beats per minute, occasional sinus arrhythmia, normal axis, unremarkable intervals, no diagnostic ST or T-wave abnormalities, no significant change compared to prior dated 10/20/2024. Discharge Plan Discharge Clinical Impression: Fall, Blunt head trauma Patient Disposition: Home, Self-Care Instructions: Fall Prevention (ED), Head Injury (ED), Abuse of Alcohol (ED) Additional Instructions: You were evaluated for a fall with head strike. There are no findings concerning exam and your presentation does not warrant CT imaging with radiation exposure at this time. If you have any persistent vomiting, unsteadiness with walking not associated with alcohol, worsening head pain or dizziness or any other acute changes, please return to the emergency department. If you do want detox in the future or having any signs of withdrawal including hallucinations or shaking tremors, please return at any point in time. Please avoid alcohol use as this will cause worsening neuropathy of your legs as it causes deficiency of important vitamins including vitamin B12, thiamine and magnesium. Prescriptions: No Action buspirone 5 mg tablet 5 mg PO BID albuterol sulfate 2.5 mg /3 mL (0.083 %) solution for nebulization 2.5 mg inhalation Q6H PRN (Reason: wheezing) hydroxyzine HCl 50 mg tablet 50 mg PO Q6H PRN (Reason: itch) albuterol sulfate [Ventolin HFA] 90 mcg/actuation HFA aerosol inhaler 2 puff INHALATION Q4H PRN (Reason: Shortness Of Breath Or Wheezing) pantoprazole 40 mg tablet,delayed release (DR/EC) 40 mg PO DAILY@0630 amoxicillin-pot clavulanate 875-125 mg tablet 1 tab PO BID 7 Days Qty: 14 0RF Print Language: Polish
[2024-12-29 17:28] VITALS: BP 134/93; PULSE 87; RESP 18; TEMP 36.6; O2SAT 96
--- NOTE | 2024-12-29 17:30 | PC.NURSE ---
Pt was able to take boots off. Feet appear WNL. Is able to stand at bedside for aprox 10 minutes but states that he is unable to ambulate if discharged. His onlt relief from BLE pain is when he drinks. He is declining assist for detox services in the ED. States that his only expectation for ED Care is a ride to [place] to check on his mother who also suffers from chronic conditions and housing insecurity. There are no wounds on his feet.
[2024-12-29] MEDS: Thiamine HCL 100 MG TABLET PO (18:23)
[2024-12-29] MEDS: Acetaminophen 325 MG TABLET 975 MG PO (18:23)
[2024-12-29] MEDS: Cyanocobalamin (Vitamin B-12) 500 MCG TABLET PO (18:23)
[2024-12-29] MEDS: Ibuprofen 600 MG TABLET PO (18:23)
[2024-12-29] MEDS: Magnesium Oxide 400 MG TABLET PO (18:23)
[2024-12-29 18:41] VITALS: BP 134/93; PULSE 87; RESP 18; TEMP 36.6; O2SAT 96
== END 2024-12-29 18:42 | disposition home or self-care (01) ==
PROVIDERS: Emergency Provider Emergency Medicine; PCP Internal Medicine
DX: S09.90XA Unspecified injury of head, initial encounter (principal); R07.89 Other chest pain; I49.9 Cardiac arrhythmia, unspecified; W00.0XXA Fall on same level due to ice and snow, initial encounter; R51.0 Headache with orthostatic component, not elsewhere classified; Y93.89 Activity, other specified; Y92.89 Other specified places as the place of occurrence of the external cause; Y99.8 Other external cause status
CPT/HCPCS: 93005; 99284; 99285

== ENCOUNTER → 2024-12-29 15:50 | Outpatient (BNV) | payer OTHER, SELFPAY | PROVIDERS: Emergency Provider Emergency Medicine; PCP Internal Medicine; Visit Provider Internal Medicine Cardiovascular Disease | DX: R07.9 Chest pain, unspecified (principal) | CPT/HCPCS: 93010 ==

== ENCOUNTER 2024-12-29 19:58 | Emergency (ER) | payer OTHER, SELFPAY ==
--- NOTE | 2024-12-29 | ECG_ITS ---
Test Reason : CP Blood Pressure : */* mmHG Vent. Rate : 63 BPM Atrial Rate : 63 BPM P-R Int : 158 ms QRS Dur : 92 ms QT Int : 388 ms P-R-T Axes : 41 54 30 degrees QTcB Int : 397 ms Normal sinus rhythm with sinus arrhythmia Normal ECG When compared with ECG of 29-Dec-2024 15:50, No significant change was found Referred By: Generic ED Physician Electronically Signed By: Isma Rock
[2024-12-29 20:06] VITALS: BP 130/95; PULSE 60; RESP 20; TEMP 36.8; O2SAT 96; BMI 25.8
--- NOTE | 2024-12-29 20:09 | ED_ITS ---
HPI - Chest Pain General Chief Complaint: Chest Pain Stated Complaint: chest pain/ anxiety Time Seen by Provider: 12/29/24 22:52 Source: patient and old records reviewed Mode of arrival: ambulatory Limitations: no limitations History of Present Illness ED Provider: DANA LANDAVERDE narrative: 24 yo male with PMH of asthma, ETOH abuse and cocaine abuse who notes he is homeless and has been using cocaine and drinking. He states he has no SI/HI but he needs to get right and go to [facility] initially stated chest pain in triage but then notes he has ETOH abuse MD complaint: other Onset (ago): week(s) Timing of current episode: episodic Prior episodes: Yes Onset: associated with drug use and other Pain radiation: none Severity: mild Quality: tightness Relieving factors: nothing Exacerbating factors: other Treatment prior to arrival: none Related Data Home Medications ?Medication ?Instructions ?Recorded ?Confirmed buspirone 5 mg tablet 5 mg PO DAILY anxiety 12/29/24 12/30/24 gabapentin 100 mg capsule 200 mg PO TID pain 12/29/24 12/30/24 hydroxyzine HCl 50 mg tablet 50 mg PO TID PRN anxiety 12/29/24 12/30/24 olanzapine 10 mg tablet 10 mg PO BEDTIME 12/29/24 12/30/24 albuterol sulfate 90 mcg/actuation 2 puff inhalation Q4H PRN wheezing 12/30/24 12/30/24 aerosol inhaler (Ventolin HFA) fluticasone furoate 200 1 ea inhalation DAILY 12/30/24 12/30/24 mcg-vilanterol 25 mcg/dose inhalation powder (Breo Ellipta) Allergies Allergy/AdvReac Type Severity Reaction Status Date / Time naproxen [From Naprosyn] Allergy Mild Vomiting Verified 12/29/24 20:08 Review of Systems 2 Review of Systems: Constitutional : No Fever, No Chills ENT/Mouth : No Ear Pain, No Nasal Congestion, No sore throat Eyes: No Eye Pain, No Swelling, No Redness Cardiovascular : No Chest Pain, No SOB Respiratory : No Cough, No Sputum, No Dyspnea Gastrointestinal : No Nausea, No Vomiting, No Diarrhea, No Hematochezia, No Melena Genitourinary : No Dysuria, No Urinary Frequency, No Hematuria Musculoskeletal : No Myalgias Skin : No Skin Lesions, No rash Neuro : No Weakness, No Numbness, No Paresthesias, No Dizziness, No Headache Psych : positive Anxiety, positive Depression, no SI/HI All other systems reviewed and are negative [facility] Past Medical History Attestation statement: The following information was validated with the patient. Source: old records reviewed Medical History Airway stricture Acquired subglottic stenosis Alcohol abuse Mild intermittent asthma Peripheral neuropathy Bipolar 1 disorder Hypertension Surgical History History of bronchoscopy History of esophagogastroduodenoscopy (EGD) Family History Family History Mother Hypertension Father Hypertension Social History Social History Household Members: None Housing: Homeless Are you a primary career law clerk to a significant other at home: No Do you presently have visiting nurse or other home services: No Unable to assess alcohol history related to: Unknown Alcohol intake: current Alcohol intake frequency: a few times a week Alcohol type: hard liquor Comment: pt refused bed alarm Patient Tobacco Use Status: Current everyday Tobacco user Tobacco use type: Cigarette Cigarettes Per Day: 10 Years Smoked: 6 Smoked in Last 30 Days: Yes Second Hand Smoke Exposure: Yes Use of substances other than those prescribed or required for medical reasons: Yes Substance Use Type: Crack/Cocaine Last Used Substance: Days (ago) Advance Directives: No Advance Directives Information Provided: No service: No Physical Exam 2 Vital Signs: Vital Signs: Last Vital Signs Temp 97.7 F 12/30/24 04:02 Pulse 68 12/30/24 04:02 Resp 19 12/30/24 04:02 BP 114/78 12/30/24 04:02 Pulse Ox 97 12/30/24 04:02 O2 Del Method Room Air 12/30/24 04:02 BMI result Body Mass Index 25.8 Appearance: Alert. Oriented X3. No acute distress. Eyes: Pupils equal, round and reactive to light. ENT: Pharynx normal. Neck: Normal inspection. Neck supple. CVS: Normal heart rate and rhythm. Pulses normal. Respiratory: No respiratory distress. Breath sounds normal. Abdomen: Soft and nontender. Skin: Skin warm and dry. Normal skin color. Normal skin turgor. Extremities: No lower extremity edema. No calf ttp Neuro: Oriented X 3. No motor deficit. No sensory deficit. CN2-12 intact Course Course Course Narrative: RME: 24-year-old male diagnosed with flu earlier today in the ED presents to the ED for chest pain with continuous URI symptoms. Patient normal sinus rhythm negative STEMI. Patient's main complaint URI symptoms. Medications Administered Generic Name Dose Route Start Last Admin Trade Name Freq PRN Reason Stop Dose Admin Lorazepam 2 mg 12/29/24 23:07 12/30/24 04:22 Lorazepam 1 Mg Tablet PO 2 mg Q3H PRN Administration Alcohol Withdrawal Discontinued Medications Generic Name Dose Route Start Last Admin Trade Name Freq PRN Reason Stop Dose Admin Ondansetron HCl 4 mg 12/30/24 04:14 12/30/24 04:23 Ondansetron Odt 4 Mg Tab.Rapdis TRANSLINGU 12/30/24 04:15 4 mg ONCE ONE Administration Medical Decision Making Medical Decision Making [facility] Narrative: 24 yo male with PMH of asthma, ETOH abuse and cocaine abuse here asking for detox he denies SI/HI at this time will obtain EKG, labs, refer to recovery team I have low suspicion for ACS or dissection he has no pain during our conversation. Differential Diagnosis Differential Diagnoses: The differential diagnosis associated with the presentation includes drug abuse, ETOH, cocaine abuse, homeless Admission/Observation Consideration of admission/observation: Escalation of care including admission/observation considered physician observation started at 1145pm Lab Data [facility] Lab Attestation statement: I reviewed the patient's lab results. 12/30/24 00:00 12/30/24 00:00 Labs: Lab Results 12/30/24 Range/Units 00:00 WBC 2.8 L (4.8-10.8) X10*3/uL RBC 3.88 L (4.60-5.80) X10*6/uL Hgb 12.1 L (14.0-18.0) g/dl Hct 35.8 L (42.0-52.0) % MCV 92.3 (80.0-98.0) fL MCH 31.2 (27.0-33.0) pg MCHC 33.8 (31.0-36.0) g/dl RDW 13.5 (11.0-16.0) % Plt Count 359 (160-400) X10*3/uL MPV 9.7 (9.4-12.4) fL Immature Gran % (Auto) 0.0 (0.0-0.4) % Neut % (Auto) 36.4 L (45-73) % Lymph % (Auto) 55.1 H (20-40) % [place] % (Auto) 8.1 (2-11) % Eos % (Auto) 0.0 (0-4) % Baso % (Auto) 0.4 (0-2) % Lymph # (Auto) 1.6 (1.2-4.9) X10*3/uL [place] # (Auto) 0.2 (0.1-1.2) X10*3/uL Eos # (Auto) 0.0 (0.0-0.4) X10*3/uL Baso # (Auto) 0.0 (0.0-0.2) X10*3/uL Abs Immat Gran (auto) 0.00 (0.00-0.03) X10*3/uL Absolute Neuts (auto) 1.0 L (2.0-8.3) x10*3/uL Absolute Nucleated RBC 0.000 (0.0-0.012) X10*3/uL Nucleated RBC % (auto) 0.0 (0.0-0.2) /100WBC Sodium 140 (135-145) mmol/L Potassium 4.1 (3.3-5.1) mmol/L Chloride 105 (96-108) mmol/L Carbon Dioxide 24 (22-29) mmol/L Anion Gap 15 (12-20) BUN 13 (9-16) mg/dL Creatinine 0.82 (0.5-1.4) mg/dL Estim Creat Clear Calc 149.8 Estimated GFR > 60 Random Glucose 93 (60-115) mg/dL Calcium 9.2 (8.4-10.2) mg/dL Magnesium 2.1 (1.6-2.6) mg/dL Total Bilirubin 0.1 (0.0-1.0) mg/dL Direct Bilirubin < 0.2 (0.0-0.5) mg/dL AST 43 H (5-37) U/L ALT 40 (0-40) U/L Alkaline Phosphatase 74 (39-117) U/L Troponin I High Sens < 2.7 D (<3.5-35.0) ng/L Total Protein 7.5 (6.5-8.0) g/dL Albumin 4.1 (3.5-5.0) g/dL Ethyl Alcohol < 10 mg/dL Independent Interpretation I performed an independent interpretation of an: EKG Interpretation: Rate: 63 Rhythm: NSR [place]: normal Normal P waves. Normal URBANO. Normal QRS complex. ST T wave : no TABITHA, inverted t waves V1 qTC: 397 prior studies: no sig change from priors The study has been interpreted contemporaneously by me. . Independent Historian Clinical information obtained from an independent historian. History obtained from or confirmed by: EMS External Record Review External record reviewed: Inpatient record and Outpatient record Social Determinants Patient?s care significantly limited by Social Determinants of Health including: Inadequate housing, Low income and Problems related to primary support group Discharge Plan Discharge Clinical Impression: Atypical chest pain, Alcohol abuse, Cocaine abuse Patient Disposition: Still a Patient Prescriptions: No Action buspirone 5 mg tablet 5 mg PO DAILY olanzapine 10 mg tablet 10 mg PO BEDTIME hydroxyzine HCl 50 mg tablet 50 mg PO TID PRN (Reason: anxiety) gabapentin 100 mg capsule 200 mg PO TID albuterol sulfate [Ventolin HFA] 90 mcg/actuation HFA aerosol inhaler 2 puff inhalation Q4H PRN (Reason: wheezing) fluticasone furoate-vilanterol [Breo Ellipta] 200-25 mcg/dose blister with device 1 ea INHALATION DAILY Print Language: Welsh
--- OUTSIDE RECORDS SUMMARY | 2024-12-29 22:48 | XMS_ITS | Encounter Summary ---
[facility] Address [address] [place] [address] Care Team Providers Care Sales Development Consultant Name Role Phone Arash Alvarez MD Primary Care Provider Reason for Visit * Reason Onset Date Comments PT-1 12/23/2024 Encounter Details Date Type Department Care Team (Late st Contact Info) Description 12/23/2024 Telephone Adult Medicine [facility] [address] [place] [address] Arash Alvarez MD [address] [place] [address] PT-1 Social History Tobacco Use Types Packs/Day [...] EST PT 1 form submitted Tracking # [id number] Dr Alvarez 6 visit a year * Carlota Pollard - 12/23/2024 10:24 AM EST PT-1 Request Call [facility] [employer] new provider or submitter number is [id number] Verify and document patients [place] Health insurance ID # (NOT [facility] ID): [id number] Payor: [employer] PLAN / [facility] / Product Type: *No Product type* / Patient mailing address: [address] [place] [address] [place] Pt. demographics verified? yes If not accurate, update registration. Is this a NEW request or a RENEWAL? New request Name of treating facility: [facility] Name (first & last) of treating provider? required : Arash Alvarez What is the medical reason why the patient is seeing the above provider? Follow up Address/Zip code for treating provider: [address] [place] [address] Phone # for treating provider: [phone] Is the provider in the [facility] [employer] network (do they accept [place] Health insurance)? yes What specialtly is this [...] 11:15 AM EST Office Visit Adult Medicine [address] [phone] Arash Alvarez MD [address] [place] [address] documented as of this encounter Visit Diagnoses Not on filedocumented in this encounter Care Teams Sales Development Consultant Relationship Specialty Start Date End Date Arash Alvarez MD [address] [place] [address] PCP - General 06/12/24 documented as of this encounter
[2024-12-30 00:04] LABS: MANUAL DIFF FLAG NO
[2024-12-30 00:07] LABS: Basophils Percent Auto 0.4 % (0-2); Hematocrit 35.8 % (42.0-52.0); Hemoglobin 12.1 g/dl (14.0-18.0); Lymphocytes Absolute Auto 1.6 X10*3/uL (1.2-4.9); Lymphocytes Percent Auto 55.1 % (20-40); Mean Corpuscular HGB Conc 33.8 g/dl (31.0-36.0); Mean Corpuscular Hemoglobin 31.2 pg (27.0-33.0); Mean Corpuscular Volume 92.3 fL (80.0-98.0); Mean Platelet Volume 9.7 fL (9.4-12.4); Monocytes Absolute Auto 0.2 X10*3/uL (0.1-1.2); Monocytes Percent Auto 8.1 % (2-11); Neutrophils Percent Auto 36.4 % (45-73); Platelet Count 359 X10*3/uL (160-400); Red Blood Count 3.88 X10*6/uL (4.60-5.80); Red Cell Distribution Width 13.5 % (11.0-16.0); White Blood Count 2.8 X10*3/uL (4.8-10.8)
[2024-12-30 00:21] LABS: Alanine Aminotransferase 40 U/L (0-40); Albumin Level 4.1 g/dL (3.5-5.0); Alkaline Phosphatase 74 U/L (39-117); Anion Gap 15 (12-20); Aspartate Amino Transferase 43 U/L (5-37); Bilirubin Direct < 0.2 mg/dL (0.0-0.5); Bilirubin Total 0.1 mg/dL (0.0-1.0); Blood Urea Nitrogen 13 mg/dL (9-16); Calcium 9.2 mg/dL (8.4-10.2); Carbon Dioxide 24 mmol/L (22-29); Chloride 105 mmol/L (96-108); Creatinine Clr Calc Pharmacy 149.8; Estimated Glomerular Filt Rate > 60; Ethanol < 10 mg/dL; Glucose Random 93 mg/dL (60-115); Magnesium 2.1 mg/dL (1.6-2.6); Potassium 4.1 mmol/L (3.3-5.1); Sodium 140 mmol/L (135-145); Total Protein 7.5 g/dL (6.5-8.0)
[2024-12-30] MEDS: LORazepam 1 MG TABLET 2 MG PO ×2 (00:21→04:22)
[2024-12-30 00:27] LABS: Troponin-I High Sensitivity < 2.7 ng/L (<3.5-35.0)
--- NOTE | 2024-12-30 03:13 | PC.NURSE ---
Addendum entered by Inocencia Pabon RN 12/30/24 06:26: pt remained calm and cooperative, slept well throughout the night, symmetrical rise and fall of chest and unlabored respirations noted. 15 min checks throughout shift. pt did not display any behavioral concerns or symptoms of concern. plan of care ongoing Original Note: pt calm and cooperative, changed over, belongings searched by security and secured in locker #4. Labs drawn, pt aware UA collection is pending. pt given food and drinks, needs met at this time. plan of care ongoing
[2024-12-30 04:02] VITALS: BP 114/78; PULSE 68; RESP 19; TEMP 36.5; O2SAT 97
[2024-12-30] MEDS: Ondansetron ODT 4 MG TAB.RAPDIS TRANSLINGU (04:23)
--- NOTE | 2024-12-30 07:06 | PC.NURSE ---
Assumed care of patient at 0645, patient appears to be in no apparent distress at this time, sleeping, respirations even and unlabored. Patient is Flu A+. Continue plan of care for recovery team mary jo
[2024-12-30 12:33] VITALS: BP 114/78; PULSE 68; RESP 19; TEMP 36.5; O2SAT 97
== END 2024-12-30 12:34 | disposition home or self-care (01) ==
PROVIDERS: Emergency Provider Emergency Medicine
DX: R07.89 Other chest pain (principal); F41.9 Anxiety disorder, unspecified; F14.10 Cocaine abuse, uncomplicated; I49.8 Other specified cardiac arrhythmias; F10.10 Alcohol abuse, uncomplicated; F17.210 Nicotine dependence, cigarettes, uncomplicated; Z59.00 Homelessness unspecified; Z79.899 Other long term (current) drug therapy; Y90.0 Blood alcohol level of less than 20 mg/100 ml; Z51.81 Encounter for therapeutic drug level monitoring
CPT/HCPCS: 36415; 80048; 80076; 80307; 83735; 84484; 85025; 93005; 99285; S9485

== ENCOUNTER 2025-02-17 00:39 | Emergency (ER) | payer OTHER, SELFPAY ==
[2025-02-17 00:50] VITALS: BP 138/80; PULSE 110; O2SAT 98
--- NOTE | 2025-02-17 00:57 | ED_ITS ---
HPI - General Adult General Chief complaint: ETOH/Substance Use Stated complaint: ETOH n/v Time Seen by Provider: 02/17/25 00:50 Source: patient and RN notes reviewed Mode of arrival: EMS Limitations: altered mental status History of Present Illness ED Provider: Kasia LANDAVERDE narrative: This is an approximately 33-year-old male that is not identified presenting for evaluation of reported alcohol intoxication. Per EMS, [facility] He was thought to be heavily intoxicated and police were called Apparently the patient was given the option of either going to alf or to the ER He has no large complaints but was brought to the ER due to suspected alcohol intoxication The patient offers no complaints in his requesting a sandwich Related Data Home Medications ?Medication ?Instructions ?Recorded ?Confirmed buspirone 5 mg tablet 5 mg PO DAILY anxiety 12/29/24 12/30/24 gabapentin 100 mg capsule 200 mg PO TID pain 12/29/24 12/30/24 hydroxyzine HCl 50 mg tablet 50 mg PO TID PRN anxiety 12/29/24 12/30/24 olanzapine 10 mg tablet 10 mg PO BEDTIME 12/29/24 12/30/24 albuterol sulfate 90 mcg/actuation 2 puff inhalation Q4H PRN wheezing 12/30/24 12/30/24 aerosol inhaler (Ventolin HFA) fluticasone furoate 200 1 ea inhalation DAILY 12/30/24 12/30/24 mcg-vilanterol 25 mcg/dose inhalation powder (Breo Ellipta) Allergies Allergy/AdvReac Type Severity Reaction Status Date / Time naproxen [From Naprosyn] Allergy Mild Vomiting Verified 12/29/24 20:08 Review of Systems 2 Constitutional: Constitutional: Denies chills, Denies fever(s) and Denies headache(s) ENT: Denies headache(s) Cardiovascular: Cardiovascular: Denies chest pain and Denies dyspnea Respiratory: Respiratory: Denies dyspnea Gastrointestinal: Gastrointestinal: Denies abdominal pain Neurologic: Denies headache(s) [facility] Past Medical History Medical History Airway stricture Acquired subglottic stenosis Alcohol abuse Mild intermittent asthma Peripheral neuropathy Bipolar 1 disorder Hypertension Surgical History History of bronchoscopy History of esophagogastroduodenoscopy (EGD) Family History Family History Mother Hypertension Father Hypertension Social History Social History Household Members: None Housing: Homeless Are you a primary md do resident urgent care to a significant other at home: No Do you presently have visiting nurse or other home services: No Unable to assess alcohol history related to: Unknown Alcohol intake: current Alcohol intake frequency: a few times a week Alcohol type: hard liquor Comment: pt refused bed alarm Patient Tobacco Use Status: Current everyday Tobacco user Tobacco use type: Cigarette Cigarettes Per Day: 10 Years Smoked: 6 Second Hand Smoke Exposure: Yes Substance Use Type: Crack/Cocaine Advance Directives: No Advance Directives Information Provided: Yes service: No Physical Exam ED Vital Signs: Vital Signs - 24 hr 02/17/25 01:08 02/17/25 05:07 02/17/25 12:10 Temperature 98.3 F 98.9 F 98.9 F Pulse Rate 76 82 82 Respiratory Rate 20 16 16 Blood Pressure 133/75 136/70 136/70 Pulse Oximetry 97 98 98 Oxygen Delivery Method Room Air Room Air Room Air 02/17/25 12:23 Temperature 98.9 F Pulse Rate 82 Respiratory Rate 16 Blood Pressure 136/70 Pulse Oximetry 98 Oxygen Delivery Method Room Air BMI result Body Mass Index 32.8 Const Other: Patient is drowsy, but arousable to verbal stimuli. General: healthy appearing, comfortable, no acute distress and alert Nutritional Appearance: well nourished [facility] Head: Yes normocephalic and Yes atraumatic Eyes Eyelids: Yes eyelids normal Conjunctivae: conjunctivae normal Sclerae: sclerae normal Corneas: corneas normal Pupils: Equal, round and reactive pupils present EOM: EOMs intact bilaterally Neck Neck: Yes full ROM Resp Effort & Inspection: normal respiratory effort, able to speak in complete sentences and not labored Cardio Rate: regular rate Rhythm: regular rhythm GI Inspection: No distended Palpation (GI): Soft to palpation, not firm, nontender, no guarding and not rigid Skin General skin exam: elasticity normal Neuro Cranial nerves: Yes Equal, round and reactive pupils present and Yes Bilaterally intact EOM present Extrem Other: Moving all extremities well without any obvious deformities Course Reevaluation(s) Reevaluation #1: One of the staff members recognize the patient as some of the new from grade school and his name is possibly ?Steveanil Guillaume. Time: 01:02 Reevaluation #2: Patient resting comfortably, he will be signed out to overnight staff pending labs, toxicology and sober re-evaluation Time: 02:18 Additional Reevaluation(s): 02/17/2025 0702 Suzanne STOVALL -- physician observation continued. Vital signs stable. Patient is sleeping comfortably in chair. We will continue to monitor for clinical sobriety 1206--physician observation completed at 12:06. Patient clinically sober, safe for discharge at this time. Is not interested in detox. Denies SI/HI Medical Decision Making Medical Decision Making MDM Narrative: Approximately 33-year-old male presents for evaluation of reported alcohol intoxication. Plan for basic labs, ethanol level and drug screen. There was no evidence of trauma. Differential Diagnosis Differential Diagnoses: The differential diagnosis associated with the presentation includes Acute alcohol intoxication Substance abuse Metabolic encephalopathy Delirium Lab Data 02/17/25 07:59 02/17/25 07:59 Labs: Lab Results 02/17/25 Range/Units 07:59 WBC 4.1 L (4.8-10.8) X10*3/uL RBC 3.82 L (4.60-5.80) X10*6/uL Hgb 12.0 L (14.0-18.0) g/dl Hct 36.3 L (42.0-52.0) % MCV 95.0 (80.0-98.0) fL MCH 31.4 (27.0-33.0) pg MCHC 33.1 (31.0-36.0) g/dl RDW 13.6 (11.0-16.0) % Plt Count 325 (160-400) X10*3/uL MPV 9.4 (9.4-12.4) fL Immature Gran % (Auto) 0.2 (0.0-0.4) % Neut % (Auto) 49.0 (45-73) % Lymph % (Auto) 40.1 H (20-40) % [place] % (Auto) 9.5 (2-11) % Eos % (Auto) 1.0 (0-4) % Baso % (Auto) 0.2 (0-2) % Lymph # (Auto) 1.7 (1.2-4.9) X10*3/uL [place] # (Auto) 0.4 (0.1-1.2) X10*3/uL Eos # (Auto) 0.0 (0.0-0.4) X10*3/uL Baso # (Auto) 0.0 (0.0-0.2) X10*3/uL Abs Immat Gran (auto) 0.01 (0.00-0.03) X10*3/uL Absolute Neuts (auto) 2.0 (2.0-8.3) x10*3/uL Absolute Nucleated RBC 0.000 (0.0-0.012) X10*3/uL Nucleated RBC % (auto) 0.0 (0.0-0.2) /100WBC Sodium 146 H (135-145) mmol/L Potassium 4.2 (3.3-5.1) mmol/L Chloride 108 (96-108) mmol/L Carbon Dioxide 29 (22-29) mmol/L Anion Gap 13 (12-20) BUN 7 L (9-16) mg/dL Creatinine 0.84 (0.5-1.4) mg/dL Estim Creat Clear Calc 165.5 Estimated GFR > 60 Random Glucose 72 (60-115) mg/dL Calcium 9.2 (8.4-10.2) mg/dL Ethyl Alcohol 93 mg/dL Discharge Plan Discharge Clinical Impression: Alcoholic intoxication Patient Disposition: Home, Self-Care Instructions: Alcohol Intoxication (ED) Additional Instructions: Alcohol use disorder You were seen in the Emergency Department today for treatment of alcohol use disorder.? You may have been given medications to help with your withdrawal symptoms.? Please do not drink alcohol with them. This is very dangerous and can cause respiratory depression or other adverse reactions depending on the medication. If you would like to cut down or stop your alcohol use please consider calling our outpatient Addiction Treatment office:? [facility] (M-F 9a-5p) [address] [place] [address] ? You have also been given a list of treatment providers in the area that can assist as well.? If you experience seizures, vomiting blood, black stools, falls, severe headache, chest pain, fevers, trouble breathing, hallucinations or any other concerns you need to call 911 or seek immediate care. Please stay hydrated. Prescriptions: No Action buspirone 5 mg tablet 5 mg PO DAILY olanzapine 10 mg tablet 10 mg PO BEDTIME hydroxyzine HCl 50 mg tablet 50 mg PO TID PRN (Reason: anxiety) gabapentin 100 mg capsule 200 mg PO TID albuterol sulfate [Ventolin HFA] 90 mcg/actuation HFA aerosol inhaler 2 puff inhalation Q4H PRN (Reason: wheezing) fluticasone furoate-vilanterol [Breo Ellipta] 200-25 mcg/dose blister with device 1 ea INHALATION DAILY Referrals: Arash Alvarez MD [Primary Care Provider] - Interventions: ED Discharge Assessment Last Done: 02/17/25 12:23 Discharge Date/Time: 02/17/25 12:24 Print Language: Yakut
[2025-02-17 01:08] VITALS: BP 133/75; PULSE 76; RESP 20; TEMP 36.8; O2SAT 97; BMI 32.8
[2025-02-17 05:07] VITALS: BP 136/70; PULSE 82; RESP 16; TEMP 37.2; O2SAT 98
[2025-02-17 08:04] LABS: MANUAL DIFF FLAG NO
[2025-02-17 08:07] LABS: Basophils Percent Auto 0.2 % (0-2); Hematocrit 36.3 % (42.0-52.0); Imm Gran Abs Auto 0.01 X10*3/uL (0.00-0.03); Imm Gran Pct Auto 0.2 % (0.0-0.4); Lymphocytes Absolute Auto 1.7 X10*3/uL (1.2-4.9); Lymphocytes Percent Auto 40.1 % (20-40); Mean Corpuscular HGB Conc 33.1 g/dl (31.0-36.0); Mean Corpuscular Hemoglobin 31.4 pg (27.0-33.0); Mean Platelet Volume 9.4 fL (9.4-12.4); Monocytes Absolute Auto 0.4 X10*3/uL (0.1-1.2); Monocytes Percent Auto 9.5 % (2-11); Platelet Count 325 X10*3/uL (160-400); Red Blood Count 3.82 X10*6/uL (4.60-5.80); Red Cell Distribution Width 13.6 % (11.0-16.0); White Blood Count 4.1 X10*3/uL (4.8-10.8)
[2025-02-17 08:24] LABS: Anion Gap 13 (12-20); Blood Urea Nitrogen 7 mg/dL (9-16); Calcium 9.2 mg/dL (8.4-10.2); Carbon Dioxide 29 mmol/L (22-29); Chloride 108 mmol/L (96-108); Creatinine Clr Calc Pharmacy 165.5; Estimated Glomerular Filt Rate > 60; Ethanol 93 mg/dL; Glucose Random 72 mg/dL (60-115); Potassium 4.2 mmol/L (3.3-5.1); Sodium 146 mmol/L (135-145)
[2025-02-17 12:10] VITALS: BP 136/70; PULSE 82; RESP 16; TEMP 37.2; O2SAT 98
[2025-02-17 12:23] VITALS: BP 136/70; PULSE 82; RESP 16; TEMP 37.2; O2SAT 98
== END 2025-02-17 12:24 | disposition home or self-care (01) ==
PROVIDERS: Physician Assistant; Emergency Provider Emergency Medicine; PCP Internal Medicine
DX: F10.129 Alcohol abuse with intoxication, unspecified (principal); Z51.81 Encounter for therapeutic drug level monitoring; Y90.4 Blood alcohol level of 80-99 mg/100 ml; R11.2 Nausea with vomiting, unspecified; Z79.899 Other long term (current) drug therapy
CPT/HCPCS: 36415; 80048; 80307; 85025; 99283